=== PATIENT | female | born 1940 | race Caucasian/White ===

== ENCOUNTER 2017-09-08 05:42 | Day surgery (SDC) | payer MEDICARE, OTHER, SELFPAY ==
[2017-09-08] VITALS (8 sets, daily range): BP systolic 98–130; BP diastolic 60–78; PULSE 73–101; RESP 14–18; TEMP 36.3–36.7; O2SAT 95–100; BMI 25.2
[2017-09-08] MEDS: Cefazolin 2 GM in 0.9% Normal Saline 100 ML IV (07:17)
[2017-09-08] MEDS: Bupivacaine Mpf 0.5% 30 ML VIAL (08:54)
--- NOTE | 2017-09-08 09:02 | PCM.OPRPT ---
Report of Operation Date of Procedure: 09/08/17 Pre-Operative Diagnosis: recurrent left femoral hernia Post-Operative Diagnosis: recurrent left femoral hernia, right femoral and indirect inguinal hernias Surgery/Procedure Performed:: left laparoscopic recurrent femoral hernia repair, right laparoscopic femoral and indirect inguinal hernia repair physical anthropologist: Carlita Goel Type of Anesthesia:: General Anesthesiologist: Chintan Rocha ASA2 Specimen's removed: none Drains: urine 125 Estimated Blood Loss (mL): <25 Fluids Replaced: 1400 Description of Procedure: The patient was brought to the operating suite. Sign in was performed verifying patient, site, procedure, position, and DVT prophylaxis with SCDs. Patient received 2 g Ancef antibiotic prophylaxis. ultrasound was used to evaluate the left inguinal region. This demonstrated and was felt to be a recurrent femoral hernia. Following induction of general anesthetic, a matthews catheter was placed. The patients abdomen was prepped and draped in the usual fashion. Timeout was performed verifying patient, site, position. Local anesthetic was injected below the umbilicus. Incision made and dissection carried down to the umbilical root fascia. 2 stay sutures were placed. Incision made in the fascia, the peritoneum entered under direct visualization. A 10 mm Sabillon trocar was inserted and secured with the stay sutures. Pneumoperitoneum to 15 mmHg was insufflated. Visual inspection revealed the recurrent left femoral hernia with omentum adherent into the hernia. Evaluation of the right inguinal region demonstrated both a femoral hernia and a direct inguinal hernia . 2 5mm ports were placed in the standard position. Right side - The peritoneum was incised and prepared and the dissection was carried out along the space down to the preperitoneal space of the inguinal canal. Dissection was carried down identifying the pubic tubercle, Coopers ligament, the inferior epigastric vessels, and lateral dissection. A femoral and direct defect was noted on the right side with dissection Following this, a Bard 3-D Max mesh was placed in the right inguinal space. This was secured with a pro-tack tacker along Coopers ligament. The mesh was then further secured over the transversus arch using a secure strap absorbable tacker. Following this, the peritoneum was closed with a running 3-0 V lock suture sewn laparoscopically. Left side - The peritoneum was incised and prepared and the dissection was carried out along the space down to the preperitoneal space of the inguinal canal. Dissection was carried down identifying the pubic tubercle, Coopers ligament, the inferior epigastric vessels, and lateral dissection. A femoral defect was noted Following this, a Bard 3-D Max mesh was placed in the left inguinal space. This was secured with a pro-tack tacker along Coopers ligament. The mesh was then further secured over the transversus arch using a secure strap absorbable tacker. Following this, the peritoneum was closed with a running 30V lock suture sewn laparoscopically. 5 ports were removed under direct visualization with no signs of bleeding. Pneumoperitoneum was released. The Sabillon trocar was removed. The umbilical fascial suture was secured area did skin was closed with interrupted 4-0 Monocryl subcuticular sutures. Steri-Strips and bandages were applied. The patient was brought to recovery room in stable condition. Grafts/Implants Used: right [id number] exp 06/12/2022,[id number] exp 03/13/22 - Admit VTE Documentation VTE Present on Admission: No VTE Mechan Device Prophylaxis: SCD's VTE Pharm Prophylaxis ordered?: No
--- NOTE | 2017-09-08 09:05 | OP.PCM_ITS ---
Report of Operation Date of Procedure: 09/08/17 Pre-Operative Diagnosis: recurrent left femoral hernia Post-Operative Diagnosis: recurrent left femoral hernia, right femoral and indirect inguinal hernias Surgery/Procedure Performed:: left laparoscopic recurrent femoral hernia repair , right laparoscopic femoral and indirect inguinal hernia repair dermatology nurse practitioner: Carlita Goel Type of Anesthesia:: General Anesthesiologist: Chintan Rocha ASA2 Specimen's removed: none Drains: urine 125 Estimated Blood Loss (mL): <25 Fluids Replaced: 1400 Description of Procedure: The patient was brought to the operating suite. Sign in was performed verifying patient, site, procedure, position, and DVT prophylaxis with SCDs. Patient received 2 g Ancef antibiotic prophylaxis. ultrasound was used to evaluate the left inguinal region. This demonstrated and was felt to be a recurrent femoral hernia. Following induction of general anesthetic, a matthews catheter was placed. The patient?s abdomen was prepped and draped in the usual fashion. Timeout was performed verifying patient, site, position. Local anesthetic was injected below the umbilicus. Incision made and dissection carried down to the umbilical root fascia. 2 stay sutures were placed. Incision made in the fascia, the peritoneum entered under direct visualization. A 10 mm Sabillon trocar was inserted and secured with the stay sutures. Pneumoperitoneum to 15 mmHg was insufflated. Visual inspection revealed the recurrent left femoral hernia with omentum adherent into the hernia. Evaluation of the right inguinal region demonstrated both a femoral hernia and a direct inguinal hernia . 2 5mm ports were placed in the standard position. Right side - The peritoneum was incised and prepared and the dissection was carried out along the space down to the preperitoneal space of the inguinal canal. Dissection was carried down identifying the pubic tubercle, Cornell?s ligament, the inferior epigastric vessels, and lateral dissection. A femoral and direct defect was noted on the right side with dissection Following this, a Bard 3-D Max mesh was placed in the right inguinal space. This was secured with a pro-tack tacker along Cornell?s ligament. The mesh was then further secured over the transversus arch using a secure strap absorbable tacker. Following this, the peritoneum was closed with a running 3-0 V lock suture sewn laparoscopically. Left side - The peritoneum was incised and prepared and the dissection was carried out along the space down to the preperitoneal space of the inguinal canal. Dissection was carried down identifying the pubic tubercle, Cornell?s ligament, the inferior epigastric vessels, and lateral dissection. A femoral defect was noted Following this, a Bard 3-D Max mesh was placed in the left inguinal space. This was secured with a pro-tack tacker along Cornell?s ligament. The mesh was then further secured over the transversus arch using a secure strap absorbable tacker. Following this, the peritoneum was closed with a running 30V lock suture sewn laparoscopically. 5 ports were removed under direct visualization with no signs of bleeding. Pneumoperitoneum was released. The Sabillon trocar was removed. The umbilical fascial suture was secured area did skin was closed with interrupted 4-0 Monocryl subcuticular sutures. Steri-Strips and bandages were applied. The patient was brought to recovery room in stable condition. Grafts/Implants Used: right [id number] exp 06/12/2022,[id number] exp 03/13/22 - Admit VTE Documentation VTE Present on Admission: No VTE Mechan Device Prophylaxis: SCD's VTE Pharm Prophylaxis ordered?: No
--- NOTE | 2017-09-08 09:10 | PCM.DC.HER ---
Discharge Diet: Light diet - advance as tolerated Discharge Activity: Return to Normal Activity, May Drive - when you are no longer taking narcotic pain medications., May Shower - with the bandage in place 1-2 days after surgery. Lifting Restrictions: 20 pounds for 8 weeks. Additional Activity Instructions:: Climbing stairs is fine, walking is encouraged. Sitting in bed may be uncomfortable. Sitting up using your lateral muscles (sitting up sideways) is usually more comfortable. Do not drive, work heavy equipment of sign legal documents for 24 hours. If your hernia repair was an ingunial repair, you may have scrotal swelling, an ice pack and/or athletic support can provide more comfort. Pain medications may cause nausea, you should typically eat light foods as you take your pain medications. Pain medications may also cause constipation. If you have difficulty with this, discuss with your doctor. Call your doctor if your incision/area has: Continuous Slow Oozing, Sudden Increased Bleeding, Increased Pain/ Swelling, Increased Redness, Foul Smelling Discharge Call your doctor if you observe: Fever of 101 or Higher Suture Line Care: Avoid Pulling/Pushing, Avoid Pinching/Bending Additional Dressing/Incision Instructions:: Leave the operative bandage on for 2-3 days. When you remove the bandage, leave the steri-strips on place until your follow up appointment or they fall off. Allergies/Adverse Reactions: Allergies BAND AIDS Allergy (Uncoded 09/04/17 15:05) Rash TAPE Allergy (Uncoded 09/04/17 15:05) Rash Medications to take at Discharge Alendronate Sodium [Fosamax] 70 mg PO Q7D@0700 05/28/16 Mirabegron [Myrbetriq] 25 mg PO DAILY 05/28/16 Ascorbic Acid [Vitamin C] 500 mg PO DAILY 03/24/17 Calcium Carb/Vitamin D3/Vit K1 [Viactiv Soft Chew] 2 each PO DAILY 03/24/17 Ped Multivit #43/Iron Fumarate [Flintstones Complete Chew Tab] 18 mg PO DAILY 03/24/17 Psyllium [Metamucil] 1 packet PO DAILY PRN 09/04/17 Oxycodone [Oxyir] 5 mg PO Q4H PRN PRN 7 Days #16 tab 09/08/17 The following prescriptions were given: Oxycodone [Oxyir] 5 mg PO Q4H PRN PRN 7 Days #16 tab PRN Reason: Severe Pain (6-03/25) Primary Care Physician: Dominick Flores MD [Primary Care Provider] - Please Follow Up With: Ayaz Duque MD - [phone] When: Plan to have a follow up appointment in 7 days. Call to schedule.
[2017-09-08] MEDS: oxyCODONE 5 MG Tablet PO (10:32)
== END 2017-09-08 12:16 | disposition home or self-care (01) ==
LOC: SDC 05:43 → AC 05:45
PROVIDERS: Family Provider Family Medicine; PCP Family Medicine; Visit Provider Surgery
PROC: (CPT 49650; principal; 2017-09-08 06:55)
DX: K41.91 Unilateral femoral hernia, without obstruction or gangrene, recurrent (principal)
CPT/HCPCS: 49650; J7120; J2405

== ENCOUNTER → 2018-01-22 08:51 | Outpatient (CLI) | payer MEDICARE, OTHER, SELFPAY | PROVIDERS: Family Provider Family Medicine; PCP Family Medicine; Visit Provider Obstetrics & Gynecology | DX: Z12.31 Encounter for screening mammogram for malignant neoplasm of breast (principal) | CPT/HCPCS: 77063; 77067 ==

== ENCOUNTER 2018-10-28 18:13 | Emergency (ER) | payer MEDICARE, OTHER, SELFPAY ==
[2018-10-28 18:14] VITALS: BP 136/68; PULSE 79; RESP 17; TEMP 36.1; O2SAT 98; BMI 26.3
--- NOTE | 2018-10-28 18:16 | RAD_ITS ---
STUDY: X-RAY - RIGHT ANKLE REASON FOR EXAM: Female, 78 years old. Fall TECHNIQUE: 3 view(s) of the ankle. COMPARISON: None. FINDINGS: There is a minimally displaced fracture of the lateral malleolus with overlying soft tissue swelling. The remainder the visualized osseous structures are intact. There are no radiodense foreign bodies. RAD/Ankle min 3 Views IMPRESSION: Minimally displaced fracture of the lateral malleolus with overlying soft tissue swelling. Electronically Signed: Kee Tomas, at 18:40 EDT Tel , Service support ,
--- NOTE | 2018-10-28 20:19 | ED.DCSUM_ITS ---
- ER Visit Summary Date of Service: 10/28/18 Chief Complaint: Ankle pain History of Present Illness: The patient is a 78 F who rolled her right ankle and has pain to the lateral right ankle. Physical Examination: Tender to palpation of the lateral malleolus on the right. Skin intact. Neurovascular intact distally. No other tenderness. Test Results: X-rays show a distal fibula fracture, minimally displaced with soft tissue swelling. Emergency Department Course and Treatment: Patient will be treated with a boot orthosis. She has a walker at home and was advised to use it. Nonweightbearing. Rest, ice, elevate. Compression. Continue her epvt-ckq-lizkoms medications. Follow-up with Dr. Flores. Treatment Plan: As above Disposition: Discharge Impression: 1. Right distal fibula fracture This note was generated with [employer] dictation software. It may contain incorrect words, spelling, and punctuation that were not noted in review of the chart prior to signing ED Disposition - Plan for ED Patient: Referrals: Dominick Flores MD [Primary Care Provider] -
--- NOTE | 2018-10-28 20:19 | ED.DEP ---
ED Disposition - Plan for ED Patient: Instructions: ED Fx Ankle Lateral Malleolus Referrals: Manfred Flores MD [STAFF PHYSICIAN] -
== END 2018-10-28 20:38 | disposition home or self-care (01) ==
PROVIDERS: Emergency Provider Emergency Medicine; Family Provider Family Medicine; PCP Family Medicine
DX: S82.831A Other fracture of upper and lower end of right fibula, initial encounter for closed fracture (principal); X50.1XXA Overexertion from prolonged static or awkward postures, initial encounter; Y93.9 Activity, unspecified; Y92.89 Other specified places as the place of occurrence of the external cause; Y99.9 Unspecified external cause status
CPT/HCPCS: 73610; 99283

== ENCOUNTER → 2019-11-01 08:44 | Outpatient (CLI) | payer MEDICARE, OTHER, SELFPAY ==
--- NOTE | 2019-11-01 08:51 | US_ITS ---
STUDY: THYROID ULTRASOUND REASON FOR EXAM: Female, 79 years old. MULTINODULAR GOITER TECHNIQUE: Ultrasound evaluation of the thyroid was performed with real-time and static chapman-scale imaging. COMPARISON: October 19, 2012 FINDINGS: RIGHT LOBE: The right lobe of the thyroid gland measures 4.5 x 1.6 x 1.3 cm. There is a heterogeneous echotexture. There are 4 nodules. There is a hyperechoic nodule measuring 10 x 8 x 7 mm with intranodular flow in the mid lobe. There is a mixed solid cystic nodule measuring 5 x 6 x 4 mm in the midpole. There is a solid nodule measuring 6 x 5 x 4 mm and a second solid nodule measuring 6 x 4 x 4 mm.. LEFT LOBE: The left lobe of the thyroid gland measures 3.3 x 1.4 x 0.9 cm. There is a heterogeneous echotexture. There is a cystic lesion measuring 3.3 x 0.9 cm and a isoechoic solid nodule measuring 5 x 6.4 mm. There are 2 other nodules measuring 1.3 x 0.8 x 0.8 cm and 0.8 x 0.5 x 0.4 cm ISTHMUS: The isthmus measures 2 mm . The regional lymph nodes are normal. There are more nodules on the current study when compared with previous exam however the largest nodules have not increased in size since prior exam. US/Thyroid IMPRESSION: Findings most consistent with multinodular goiter. There are more nodules on the current exam when compared with previous study however there is no significant increase in size in the dominant nodules.. Thyroid neoplasm not likely but not entirely excluded. Clinical correlation recommended Electronically Signed: Jesse Morales MD at 16:58 EDT , Service support ,
== END ==
PROVIDERS: PCP Family Medicine; Referring Provider Family Medicine; Visit Provider Family Medicine
DX: E04.2 Nontoxic multinodular goiter (principal)
CPT/HCPCS: 76536

== ENCOUNTER → 2019-11-11 13:30 | Outpatient (CLI) | payer MEDICARE, OTHER, SELFPAY ==
--- NOTE | 2019-11-11 | FLU_PTH ---
PATIENT: JOYA KAISER LOC: [facility] U#:[id number] AGE/SX: 84/F ROOM: RE11/11/[address]: Dr. He Romero MD : [id number] BED: DIS: SPEC #: [id number] RECD: 11/11/19 14:51 STATUS: RERE REBridget #: [id number] MANUELA: 11/11/19 00:[address]: He Romero DEPT: CYTOLOGY RECD BY: Jey Santoro ENTERED: 11/12/19 10:51 SP TYPE: Fluid OTHR DR: Dr. Dominick Peralta MD Tissues: A - Thyroid gland, NOS B - Thyroid gland, NOS Procedures: Special Stain Group II Surgery Specimen Level IV Cytospin Fluid HEADER OPERATION: Ultrasound-guided fine needle aspiration right thyroid and cyst aspiration left thyroid PRE-OP DIAGNOSIS: Multinodular goiter TISSUE SUBMITTED: A - Left thyroid fluid nodule for cytology, B - FNA right thyroid nodule slides x12 DIAGNOSIS CYTOLOGY A. Left thyroid nodule fluid for cytology, ultrasound-guided FNA (cytospin and cell block): Consistent with cyst contents. See cytology study and comment. B. Right thyroid nodule, ultrasound-guided FNA (smears): Benign colloid nodule with cystic changes. Adequate for evaluation. See comment. COMMENT A. The specimen is nondiagnostic due to lack of adequate number of follicular cells. Correlation with clinical, radiologic findings and appropriate follow up are necessary. CYTOLOGY STUDY Slides are reviewed. A. The specimen predominantly consists of macrophages. Follicular cells are not identified. CYTOLOGY GROSS A - Received is 1 ml of red cloudy fluid labeled with the patient's name and and designated per the requisition as left thyroid. Submitted for cytology preparation including cell block. B - Received are 12 smears labeled with the patient's name and designated per the requisition as right thyroid. Submitted for staining. / rg 11/12/19 TC:5 CPT: 62863, 80236, 72620
[2019-11-11 12:58] VITALS: BMI 26.3
[2019-11-11 16:55] LABS: Cytology, Body Fluid / CSF SEE PATHOLOGY REPORT
== END ==
PROVIDERS: PCP Family Medicine; Referring Provider Surgery; Visit Provider Surgery
DX: E04.2 Nontoxic multinodular goiter (principal)
CPT/HCPCS: 88108; 88305; 88313

== ENCOUNTER → 2019-11-16 09:31 | Outpatient (CLI) | payer MEDICARE, OTHER, SELFPAY ==
[2019-11-11 12:58] VITALS: BMI 26.3
--- NOTE | 2019-11-16 09:36 | BI_ITS ---
MAMMOGRAPHY - BILATERAL SCREENING REASON FOR EXAM: Female, 79 years old. Routine annual screening examination. PERTINENT HISTORY: Aunt with breast cancer. TECHNIQUE: Digital bilateral breast suad (3D mammographic acquisition) in the CC and MLO projections. 2-D mediolateral oblique (MLO) and craniocaudad (CC) views of both breasts were obtained. CAD: Full Field Digital Mammography with Computer Added Detection was performed. COMPARISON: Comparison is made with prior examination done January 22, 2018 and January 16, 2017. FINDINGS: Breast Composition: The breasts are heterogeneously dense, which may obscure small masses. There are no dominant masses or suspicious calcifications. Stable benign-appearing bilateral axillary lymph nodes. No other significant abnormalities are identified. There has been no significant change since the prior study. BI/SCREEN MAMM (CAD) W/SUAD BILAT IMPRESSION: Stable bilateral screening mammogram. Yearly follow-up mammogram recommended. (A) ASSESSMENT CATEGORY: BIRADS Category 2: Benign. A letter regarding these results will be sent to the patient by the facility within 30 days. Approximately 10% of breast cancers are not detected by mammography. A normal mammogram should not delay biopsy of a clinically suspicious abnormality. [id number] Electronically Signed: Dre Villanueva, at 12:29 EDT , Service support ,
--- NOTE | 2019-11-16 09:39 | BD_ITS ---
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 COMPARISON: Comparison is made with prior examination dated December 15, 2014. FINDINGS: Lumbar Spine (L1-L4): g/cm2 (1.127) / T-score (-0.4) / Z-score (1.4) Findings are suggestive of normal bone density with a low fracture risk. Increased thoracic kyphosis. Right Femur Total: g/cm2 (0.729) / T-score (-2.2) / Z-score (-0.3) Right Femoral Neck: g/cm2 (0.738) / T-score (-2.2) / Z-score (-0.1) The T-Scores on the most recent prior examination were: Lumbar Spine (L1-L4): There has been improvement of bone density since the previous examination. Right Femur Total: which represents an improvement of 3.2%. BD/Dexa Bone Density Study IMPRESSION: The patient is considered osteopenic as outlined below according to World [place] Organization (WHO) criteria with a moderate fracture risk. There has been improvement of bone density since the previous examination. Reference Information: The T-score is the number of standard deviations above or below the standard which is normal for young adults at their peak bone mineral density. The World Health Organization (WHO) interprets the T-scores as follows: Above -1 Normal bone density Between -1 and -2.5 Osteopenia Equal to / or below -2.5 Osteoporosis As a practical clinical guideline, osteopenia may be graded as follows: Mild -1 through -1.5 Moderate -1.6 through -2.0 Severe -2.1 through -2.4 The Z-score is the number of standard deviations above or below age-matched controls. A Z-score of less than -1.5 would be considered abnormal. References: 1. NIH Osteoporosis and Related Bone Diseases http://www.osteo.org 2. International Society for Clinical Densitometry http://www.iscd.org 3. National Osteoporosis Foundation http://www.nof.org Electronically Signed: Dre Villanueva, at 13:01 EDT , Service support ,
== END ==
PROVIDERS: PCP Family Medicine; Referring Provider Family Medicine; Visit Provider Family Medicine
DX: Z12.31 Encounter for screening mammogram for malignant neoplasm of breast (principal); M85.80 Other specified disorders of bone density and structure, unspecified site; M40.294 Other kyphosis, thoracic region; Z78.0 Asymptomatic menopausal state
CPT/HCPCS: 77063; 77067; 77080

== ENCOUNTER → 2020-01-05 16:48 | Outpatient (CLI) | payer MEDICARE, OTHER, SELFPAY ==
[2019-11-11 12:58] VITALS: BMI 26.3
[2020-01-05 17:52] LABS: Absolute Lymphocyte Count 2.32 X10^3/uL (0.83-4.51); Absolute Neutrophil Count 4.4 X10^3/uL (2.0-7.7); Basophil# 0.03 X10^3/uL; Basophil% 0.4 % (0-1); Eosinophil# 0.15 X10^3/uL; Eosinophils% 1.9 % (0-5); Hematocrit 33.6 % (37-47); Lymphocyte # 2.32 X10^3/ul (4.0); Lymphocyte % 29.4 % (19-41); Mean Corp Hgb Conc 32.7 g/dL (32-36); Mean Corpuscular Hgb 32.3 pg (27.0-32.0); Mean Corpuscular Volume 98.5 fL (81-99); Mean Platelet Vol. 11.5 fl (6.2-12.0); Monocyte# 0.99 X10^3/uL; Monocyte% 12.5 % (0-10); NRBC Flagged by Analyzer 0 % (0-5); Neutrophil % 55.7 % (47-70); Platelet Count 198 K/mm3 (150-450); RBC Distribution Width CV 12.2 % (11.6-14.6); RBC Distribution Width SD 44.1 fl (35.1-43.9); Red Blood Count 3.41 M/mm3 (4.2-5.4); White Blood Count 7.9 K/mm3 (4.4-11.0)
[2020-01-05 18:17] LABS: Anion Gap 4 (5-15); BUN 19 mg/dL (7-18); BUN/Creat Ratio 20.8 RATIO (10-20); Calcium,Total 8.4 mg/dL (8.5-10.1); Chloride 104 mmol/L (98-107); Creatinine, Serum 0.91 mg/dL (0.55-1.02); EST Glomerular Filtration Rate 63 mL/min (>60); Est Glom Filt Rate - Afr Amer 76 mL/min (>60); Glucose 90 mg/dL (74-106); Potassium 3.8 mmol/L (3.5-5.1); Sodium Level 137 mmol/L (136-145)
== END ==
PROVIDERS: PCP Family Medicine; Referring Provider Family Medicine; Visit Provider Family Medicine
DX: Z01.818 Encounter for other preprocedural examination (principal)
CPT/HCPCS: 36415; 80048; 85025

== ENCOUNTER → 2020-01-14 08:29 | Outpatient (CLI) | payer MEDICARE, OTHER, SELFPAY ==
[2019-11-11 12:58] VITALS: BMI 26.3
[2020-01-14 10:14] LABS: Vitamin B12 403 pg/mL (211-911)
[2020-01-14 10:56] LABS: Ferritin 74 ng/mL (8-252); Iron 91 ug/dL (50-170); Iron Binding Capacity,Total 260 ug/dL (250-450)
== END ==
PROVIDERS: PCP Family Medicine; Referring Provider Family Medicine; Visit Provider Family Medicine
DX: D64.9 Anemia, unspecified (principal)
CPT/HCPCS: 36415; 82607; 82728; 82746; 83540; 83550

== ENCOUNTER 2020-08-14 08:00 | Outpatient (RCR) | payer MEDICARE, OTHER, SELFPAY ==
[2019-11-11 12:58] VITALS: BMI 26.3
== END 2020-08-14 23:59 ==
LOC: IMMUN 08:00
PROVIDERS: PCP Family Medicine; Visit Provider Family Medicine
DX: Z23 Encounter for immunization (principal)
CPT/HCPCS: 0011A; 0012A

== ENCOUNTER → 2021-02-02 08:16 | Outpatient (CLI) | payer MEDICARE, OTHER, SELFPAY ==
[2021-02-02 10:01] LABS: Absolute Lymphocyte Count 1.94 X10^3/uL (0.83-4.51); Absolute Neutrophil Count 3.6 X10^3/uL (2.0-7.7); Basophil# 0.04 X10^3/uL; Basophil% 0.6 % (0-1); Eosinophil# 0.16 X10^3/uL; Eosinophils% 2.5 % (0-5); Hematocrit 35.6 % (37-47); Hemoglobin 11.8 g/dL (12.0-15.0); Lymphocyte # 1.94 X10^3/ul (0.83-4.51); Lymphocyte % 29.9 % (19-41); Mean Corp Hgb Conc 33.1 g/dL (32-36); Mean Corpuscular Hgb 31.7 pg (27.0-32.0); Mean Corpuscular Volume 95.7 fL (81-99); Mean Platelet Vol. 12.2 fl (6.2-12.0); Monocyte# 0.74 X10^3/uL; Monocyte% 11.4 % (0-10); NRBC Flagged by Analyzer 0 % (0-5); Neutrophil # 3.59 X10^3/uL (2.7-7.7); Neutrophil % 55.3 % (47-70); Platelet Count 197 K/mm3 (150-450); RBC Distribution Width CV 11.9 % (11.6-14.6); Red Blood Count 3.72 M/mm3 (4.2-5.4); White Blood Count 6.5 K/mm3 (4.4-11.0)
[2021-02-02 10:21] LABS: Vitamin D,25 Hydroxy 47.5 ng/mL
[2021-02-02 10:30] LABS: AST(SGOT) 17 U/L (15-37); Alanine Aminotransfer ALT/SGPT 25 U/L (13-56); Albumin, Serum 3.5 g/dL (3.2-5.0); Alkaline Phosphatase 56 U/L (45-117); Anion Gap 4 (5-15); BUN 18 mg/dL (7-18); BUN/Creat Ratio 23.4 RATIO (10-20); Calcium,Total 8.9 mg/dL (8.5-10.1); Chloride 106 mmol/L (98-107); Creatinine, Serum 0.77 mg/dL (0.55-1.02); EST Glomerular Filtration Rate 77 mL/min (>60); Est Glom Filt Rate - Afr Amer 93 mL/min (>60); Globulin 3.4 g/dL (2.2-4.2); Glucose 91 mg/dL (74-106); Protein, Total 6.9 g/dL (6.4-8.2); Sodium Level 139 mmol/L (136-145)
== END ==
PROVIDERS: PCP Family Medicine; Visit Provider Family Medicine
DX: M85.80 Other specified disorders of bone density and structure, unspecified site (principal); K21.9 Gastro-esophageal reflux disease without esophagitis
CPT/HCPCS: 36415; 80053; 82306; 85025

== ENCOUNTER → 2021-02-08 09:13 | Outpatient (CLI) | payer MEDICARE, OTHER, SELFPAY ==
[2021-02-08 12:36] LABS: Absolute Lymphocyte Count 1.98 X10^3/uL (0.83-4.51); Absolute Neutrophil Count 3.6 X10^3/uL (2.0-7.7); Basophil# 0.05 X10^3/uL; Basophil% 0.8 % (0-1); Eosinophil# 0.12 X10^3/uL; Eosinophils% 1.8 % (0-5); Hematocrit 34.7 % (37-47); Hemoglobin 11.4 g/dL (12.0-15.0); Lymphocyte # 1.98 X10^3/ul (0.83-4.51); Lymphocyte % 30.5 % (19-41); Mean Corp Hgb Conc 32.9 g/dL (32-36); Mean Corpuscular Hgb 31.6 pg (27.0-32.0); Mean Corpuscular Volume 96.1 fL (81-99); Mean Platelet Vol. 12.1 fl (6.2-12.0); Monocyte# 0.78 X10^3/uL; NRBC Flagged by Analyzer 0 % (0-5); Neutrophil # 3.55 X10^3/uL (2.7-7.7); Neutrophil % 54.6 % (47-70); Platelet Count 208 K/mm3 (150-450); RBC Distribution Width SD 41.9 fl (35.1-43.9); Red Blood Count 3.61 M/mm3 (4.2-5.4); White Blood Count 6.5 K/mm3 (4.4-11.0)
[2021-02-08 12:41] LABS: Vitamin B12 364 pg/mL (211-911)
[2021-02-08 13:32] LABS: Ferritin 81 ng/mL (8-252); Iron 106 ug/dL (50-170); Iron Binding Capacity,Total 264 ug/dL (250-450)
== END ==
PROVIDERS: PCP Family Medicine; Visit Provider Family Medicine
DX: D64.9 Anemia, unspecified (principal)
CPT/HCPCS: 36415; 82607; 82728; 82746; 83540; 83550; 85025

== ENCOUNTER → 2021-02-14 10:21 | Outpatient (CLI) | payer MEDICARE, OTHER, SELFPAY ==
--- NOTE | 2021-02-14 10:27 | US_ITS ---
INDICATION: GOITER EXAMINATION: Ultrasound US Thyroid (eg thyroid, parathyroid, parotid) TECHNIQUE: Lewis scale and color doppler imaging was performed of the thyroid gland. COMPARISON: 11/01/2019. FINDINGS: RIGHT THYROID LOBE: The right lobe of the thyroid gland is unremarkable in size, demonstrates heterogeneous echogenicity and unremarkable vascularity. The right lobe of the thyroid gland measures 4.7 x 1.6 x 1.5 cm. Multiple nodules visualized within the right lobe largest 4; Upper pole complex nodule measuring 0.6 x 0.6 x 0.4 cm and demonstrating demonstrating perinodular vascularity.This nodule demonstrates no significant change in comparison to the prior study where it had measured 0.6 x 0.5 x 0.4 cm cm. Mid pole cystic nodule measuring 0.5 x 0.5 x 0.5 cm. This nodule demonstrates no significant change in comparison to the prior study where it had measured 0.6 x 0.5 x 0.4 cm. Mid to lower pole hyperechoic nodule measuring 1.0 x 0.9 x 0.8 cm and demonstrating perinodular vascularity. This nodule demonstrates no significant change in comparison to the prior study where it had measured 1.0 x 0.8 x 0.7 cm. Lower pole complex nodule measuring 0.6 x 0.5 x 0.4 cm demonstrating demonstrating perinodular vascularity. This nodule demonstrates no significant change in comparison to the prior study where it had measured 0.6 x 0.4 x 0.4 cm. LEFT THYROID LOBE: The left lobe of the thyroid gland is unremarkable in size, demonstrates heterogeneous echogenicity and unremarkable vascularity. The left lobe of the thyroid gland measures 3.7 x 1.8 x 1.0 cm. Multiple nodules visualized within the left lobe largest 2; Midpole (posterolateral) complex nodule measuring 0.8 x 0.5 x 0.3 cm demonstrating perinodular vascularity.This nodule demonstrates slight change in comparison to the prior study where it had measured 0.5 x 0.6 x 0.4 cm. Midpole (anteromedial) complex nodule measuring 0.9 x 0.7 x 0.4 cm demonstrating perinodular vascularity.This nodule demonstrates slight increase in size in comparison to the prior study where it had measured 0.8 x 0.5 x 0.4 cm. ISTHMUS: The isthmus measures 0.2 cm in AP dimensions. No thyroid nodules are present. US/Thyroid IMPRESSION: Right lobe demonstrates 4 nodules that demonstrate no significant change in comparison to the prior study. Left lobe demonstrates that 2 nodules one of which demonstrates slight increase in comparison to the prior study. According to the Society of Radiologists in Ultrasound Consensus Conference Statement, ultrasound-guided FNA (fine needle aspiration) is recommended if: 1) nodule >= 1 cm with microcalcifications; 2) nodule >= 1.5 cm and is almost entirely solid or has coarse calcifications; 3) nodule >= 2.0 cm and is cystic with some solid component; 4) nodule with substantial growth since prior study. Viki MC, Misha CB, Yodit JW, Nelsy ES, Conrad OH, Riky BG, et al. Management of thyroid nodules detected at [place]: Society of Radiologists in Ultrasound consensus conference statement. Radiology 2005;237:794-800 Electronically Signed: Jones Royal MD at 16:52 EDT Tel , Service support ,
== END ==
PROVIDERS: PCP Family Medicine; Referring Provider Family Medicine; Visit Provider Family Medicine
DX: E04.2 Nontoxic multinodular goiter (principal)
CPT/HCPCS: 76536

== ENCOUNTER → 2021-04-18 15:53 | Outpatient (CLI) | payer MEDICARE, OTHER, SELFPAY ==
--- NOTE | 2021-04-18 15:55 | RAD_ITS ---
STUDY: X-RAY - LEFT FOOT CLINICAL: Left heel pain for one week, no specific injury. TECHNIQUE: 3 view(s) of the foot. COMPARISON: None. FINDINGS: Normal talus, calcaneus, and tarsal bones. Normal visualized subtalar, talonavicular, calcaneocuboid, tarsal and tarsometatarsal articulations. Normal metatarsi. Normal metatarsophalangeal joint of the great toe. Normal tibial and fibular sesamoid bones. Normal interphalangeal joint of the great toe. Normal phalanges of the great toe. Normal second through fifth metatarsophalangeal joints. Normal interphalangeal joints and phalanges of the lesser toes. There is mild ossification in the proximal plantar fascia. RAD/Foot min 3 Views IMPRESSION: Mild ossification in the proximal plantar fascia. Otherwise, unremarkable x-ray examination of the left foot. Electronically Signed: Jones Watkins MD at 9:11 EDT Tel , Service support ,
== END ==
PROVIDERS: PCP Family Medicine; Referring Provider Family Medicine; Visit Provider Family Medicine
DX: M79.673 Pain in unspecified foot (principal)
CPT/HCPCS: 73630

== ENCOUNTER → 2021-05-28 12:19 | Outpatient (CLI) | payer MEDICARE, OTHER, SELFPAY ==
--- NOTE | 2021-05-28 12:23 | BI_ITS ---
MAMMOGRAPHY - BILATERAL SCREENING REASON FOR EXAM: Female, 80 years old. Routine annual screening examination. PERTINENT HISTORY: Aunt with breast cancer. TECHNIQUE: Digital bilateral breast suad (3D mammographic acquisition) in the CC and MLO projections. 2-D mediolateral oblique (MLO) and craniocaudad (CC) views of both breasts were obtained. CAD: Full Field Digital Mammography with Computer Added Detection was performed. COMPARISON: Comparison is made with prior study dated 11/16/2019 and 01/22/2018. FINDINGS: Breast Composition: The breasts are heterogeneously dense, which may obscure small masses. There are no dominant masses or suspicious calcifications. Stable small benign appearing bilateral axillary lymph nodes. No other significant abnormalities are identified. There has been no significant change since the prior study. BI/SCRN MAMM (CAD)W/SUAD BILAT IMPRESSION: Stable bilateral screening mammogram. Yearly follow-up mammogram recommended. (A) ASSESSMENT CATEGORY: BIRADS Category 2: Benign. A letter regarding these results will be sent to the patient by the facility within 30 days. Approximately 10% of breast cancers are not detected by mammography. A normal mammogram should not delay biopsy of a clinically suspicious abnormality. [id number] Electronically Signed: Dre Villanueva MD at 13:20 EST , Service support ,
== END ==
PROVIDERS: PCP Family Medicine; Referring Provider Obstetrics & Gynecology; Visit Provider Obstetrics & Gynecology
DX: Z12.31 Encounter for screening mammogram for malignant neoplasm of breast (principal)
CPT/HCPCS: 77063; 77067

== ENCOUNTER → 2022-02-13 | Outpatient (CLI) | payer MEDICARE, OTHER, SELFPAY ==
[2022-02-14 17:20] LABS: Fats, Neutral Normal (.); Fats, Total Normal (.)
== END | disposition home or self-care (01) ==
LOC: LABSPEC 09:23
PROVIDERS: PCP Family Medicine; Visit Provider Family Medicine
DX: R19.7 Diarrhea, unspecified (principal)
CPT/HCPCS: 82705; 83630; 87177; 87209; 87493; 87506

== ENCOUNTER → 2022-05-30 | Outpatient (CLI) | payer MEDICARE, OTHER, SELFPAY ==
--- NOTE | 2022-05-30 07:56 | BI_ITS ---
MAMMOGRAPHY - BILATERAL SCREENING REASON FOR EXAM: Female, 81 years old. Routine annual screening examination. PERTINENT HISTORY: Aunt with breast cancer. TECHNIQUE: Digital bilateral breast suad (3D mammographic acquisition) in the CC and MLO projections. 2-D mediolateral oblique (MLO) and craniocaudad (CC) views of both breasts were obtained. CAD: Full Field Digital Mammography with Computer Added Detection was performed. COMPARISON: Comparison is made with prior study dated 05/28/2021 and 11/16/2019. FINDINGS: Breast Composition: The breasts are heterogeneously dense, which may obscure small masses. There are no dominant masses or suspicious calcifications. Stable small benign-appearing bilateral axillary lymph nodes. No other significant abnormalities are identified. There has been no significant change since the prior study. BI/SCRN MAMM (CAD)W/SUAD BILAT IMPRESSION: Stable bilateral screening mammogram. Yearly follow-up mammogram recommended. (A) ASSESSMENT CATEGORY: BIRADS Category 2: Benign. A letter regarding these results will be sent to the patient by the facility within 30 days. Approximately 10% of breast cancers are not detected by mammography. A normal mammogram should not delay biopsy of a clinically suspicious abnormality. [id number] Electronically Signed: Dre Villanueva MD at 9:12 EST ,
== END | disposition home or self-care (01) ==
LOC: OPBI 07:53
PROVIDERS: PCP Family Medicine; Visit Provider Obstetrics & Gynecology
DX: Z12.31 Encounter for screening mammogram for malignant neoplasm of breast (principal); Z80.3 Family history of malignant neoplasm of breast
CPT/HCPCS: 77063; 77067

== ENCOUNTER 2023-01-25 22:06 | Inpatient (IN) | payer MEDICARE, OTHER, SELFPAY ==
[2023-01-25 22:10] VITALS: PULSE 86; RESP 18; O2SAT 97
[2023-01-25 22:40] VITALS: BP 133/51; PULSE 86; RESP 18; TEMP 36.3; O2SAT 97
--- NOTE | 2023-01-25 22:57 | PCM.HP.STD ---
HPI - General General Date of Admission: 01/25/23 Date of Service: 01/27/23 Chief Complaint: Here for rehabilitation. HPI Narrative JOYA KAISER, is a 82 Female who presents with followin01/21/2023 Admit to [facility] ([place], [place]) Visiting grandchildren, ground level fall, left periprosthetic proximal femur fracture. Twisted, fell in kitchen. Immediate pain, weakness left lower extremity. 01/22/2023 Dr. Berman performed ORIF left subtrochanteric proximal femur fracture, complicated due to periprosthetic fracture. Ancef Postop. NWB left lower extremity x 6 weeks, then WBAT. Lovenox for DVT prophylaxis. 01/25/2023 Admit to TCU with debility, here for rehabilitation, strengthening, prior to discharge home with . [facility] Medical History (Updated 01/25/23 @ 23:[address] Adriano Arias MD) Arthritis Constipation History of back problems Multinodular goiter Home Medications mirabegron 25 mg tablet,extended release 24 hr 25 mg PO DAILY Overactive bladder 05/28/16 [History Last Taken 01/25/23] ascorbic acid (vitamin C) 1,000 mg tablet,extended release 500 mg PO DAILY Supplement 03/24/17 [History Last Taken Unknown] calcium 650 mg-vitamin D3 12.5 mcg-vitamin K 40 mcg chewable tablet 2 ea PO DAILY Supplement 03/24/17 [History Last Taken Unknown] psyllium husk (aspartame) 3.4 gram oral powder packet 1 packet PO DAILY PRN Constipation 09/04/17 [History Last Taken Unknown] multivitamin 1 cap PO DAILY Supplement 11/05/19 [History Last Taken Unknown] polyethylene glycol 3350 17 gram/dose oral powder (Miralax) 17 g PO DAILY Constipation 11/05/19 [History Last Taken 01/24/23] bisacodyl 10 mg rectal suppository 10 mg AL DAILY PRN constipation 01/25/23 [History Last Taken Unknown] calcium carb-ergocalciferol (vit D2) 600 mg calcium-200 unit tablet 1 tab PO DAILY Supplement 01/25/23 [History Last Taken 01/25/23] enoxaparin 30 mg/0.3 mL subcutaneous syringe (Lovenox) 30 mg subcut Q12H Anticoagulant 01/25/23 [History Last Taken 01/25/23] hydrocodone-acetaminophen 5-325mg 5mg-325mg 1 tab PO Q4H PRN pain 01/25/23 [History Last Taken Unknown] sennosides 8.6 mg-docusate sodium 50 mg tablet (Senna with Docusate Sodium) 1 tab-cap PO BID Constipation 01/25/23 [History Last Taken 01/25/23] temazepam 15 mg capsule 15 mg PO QHS PRN sleep 01/25/23 [History Last Taken Unknown] tramadol 50 mg tablet 50 mg PO Q4H PRN pain 01/25/23 [History Last Taken Unknown] Allergy/AdvReac Type Severity Reaction Status Date / Time adhesive tape AdvReac Rash Verified 02/05/22 15:22 Family History Father Arthritis Diabetes CVA (cerebral vascular accident) Brother Diabetes Mother Cancer skin cancer Surgical History history anterior and posterior repair history left femoral hernia repair History of bilateral cataract extraction History of hysterectomy History of laparoscopic cholecystectomy History of tonsillectomy and adenoidectomy History of total left hip replacement History of tubal ligation Social History (Updated 01/25/23 @ 23:[address] Adriano Arias MD) household members: spouse Smoking Status: Never smoker alcohol intake: never substance use type: does not use ROS Constitutional Constitutional: Denies chills, fever(s) or weight gain ENT HEENT: Denies headache(s), nasal congestion or nasal discharge Cardiovascular Cardiovascular: Denies chest pain or palpitations Respiratory/Chest Respiratory/Chest: Denies cough, excessive phlegm production or shortness of breath with exertion Gastrointestinal Gastrointestinal: Denies abdominal pain, nausea or vomiting Genitourinary Genitourinary: Denies dysuria Musculoskeletal Musculoskeletal: Denies joint pain or joint swelling Integumentary Integumentary: Denies rash or wounds Neurologic Neurologic: Denies focal weakness, numbness or tingling Psychiatric Psychiatric: Denies anxiety, auditory hallucinations, depression, homicidal ideation or suicidal ideation Physical Exam Const alert General Appearance: cooperative HEENT normocephalic Eyes PERRL and EOMs intact bilaterally Neck supple, no JVD and no carotid bruits Resp normal respiratory effort, normal air movement and clear to auscultation bilaterally Cardio regular rate and regular rhythm GI normal to inspection, nondistended, normoactive bowel sounds, non-tender and non-distended Extremity normal capillary refill General Extremity: edema left lower extremity Skin no rashes or lesions noted General Skin Exam: no breakdown Psych affect normal Appearance: appropriate Results Lab / Micro Data 01/27/23 05:42 01/26/23 06:30 Assessment & Plan Assessment/Plan (1) Debility: (2) Fall: (3) 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: (4) Overactive bladder: (5) Osteoarthritis: (6) Multinodular goiter: PLAN: Plan 82 year old female with below past medical history hospitalized for left periprosthetic hip fracture, underwent ORIF left subtrochanteric proximal femur fracture 01/22/2023, admitted to TCU with debility, here for rehabilitation, strengthening, prior to discharge home with . Debility - PT/OT. Pain - Tylenol 1000mg q8, Tramadol 50mg q6 prn pain (1-5), Oxycodone 5mg q4 prn pain (6-10). Bowel - Miralax 17gm daily, senna/colace 2 tablets bid, Dulcolax 10mg pr daily prn, Magnesium citrate 300ml daily prn. Adult immunization - Administer pneumonia vaccine, covid19 vaccine, flu vaccine as appropriate. DVT prophylaxis - Lovenox 40mg sc daily. Calcium deficiency - Calcium D 1 tablet daily. 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 Overactive bladder - Tolterodine 4mg daily. Left lower extremity swelling - Doppler ultrasound left lower extremity to evaluate for DVT.
[2023-01-25 23:38] VITALS: BMI 26.4
[2023-01-26] MEDS: HYDROcodone Bitartrate/Apap 5/325 Tablet PO ×2 (00:05→05:24)
[2023-01-26] MEDS: Enoxaparin 30 MG/0.3 ML Syringe SC (05:25)
[2023-01-26] MEDS: Polyethylene Glycol 3350 17 GM PACKET PO (05:25)
[2023-01-26] MEDS: Tolterodine Tartrate 4 MG CAP.SA PO (05:26)
[2023-01-26] MEDS: Senna/Docusate Sodium 1 Tablet PO (05:26)
[2023-01-26] MEDS: Bisacodyl 10 MG Suppository RC (06:48)
[2023-01-26 06:56] LABS: Absolute Lymphocyte Count 1.77 X10^3/uL (0.83-4.51); Absolute Neutrophil Count 7.3 X10^3/uL (2.0-7.7); Basophil# 0.04 X10^3/uL; Basophil% 0.4 % (0-1); Eosinophil# 0.14 X10^3/uL; Eosinophils% 1.3 % (0-5); Hematocrit 25.9 % (37-47); Hemoglobin 8.7 g/dL (12.0-15.0); Lymphocyte # 1.77 X10^3/ul (0.83-4.51); Lymphocyte % 16.4 % (19-41); Mean Corp Hgb Conc 33.6 g/dL (32-36); Mean Corpuscular Hgb 32.2 pg (27.0-32.0); Mean Corpuscular Volume 95.9 fL (81-99); Mean Platelet Vol. 10.6 fl (6.2-12.0); NRBC Flagged by Analyzer 0.3 % (0-5); Neutrophil % 67.6 % (47-70); Platelet Count 205 K/mm3 (150-450); RBC Distribution Width CV 14.9 % (11.6-14.6); RBC Distribution Width SD 51.6 fl (35.1-43.9); White Blood Count 10.8 K/mm3 (4.4-11.0)
[2023-01-26 07:23] LABS: Anion Gap 8 (5-15); BUN 14 mg/dL (7-18); BUN/Creat Ratio 23.1 RATIO (10-20); Chloride 106 mmol/L (98-107); Creatinine, Serum 0.61 mg/dL (0.55-1.02); EST Glomerular Filtration Rate 101 mL/min (>60); Est Glom Filt Rate - Afr Amer 122 mL/min (>60); Estimated Creatinine Clearance 37.45 ml/min; Glucose 111 mg/dL (74-106); Potassium 3.7 mmol/L (3.5-5.1); Sodium Level 142 mmol/L (136-145)
--- NOTE | 2023-01-26 07:45 | NURSING ---
Pt reports last BM being 01/21. Pt has a history of chronic constipation. Stool softeners and miralax on AUG. Bowel sounds hypoactive x4, denies discomfort with palpation of abdomen. After having 0600 medications, pt had one episode of clear emesis. PRN dulcolax suppository administered as ordered. Awaiting results.
[2023-01-26] MEDS: Acetaminophen 500 MG Tablet 1000 MG PO ×2 (09:05→21:41)
[2023-01-26] MEDS: Calcium Carb/Vitamin D 1 TABLET Tablet PO (09:05)
[2023-01-26 16:00] VITALS: BP 119/64; PULSE 86; RESP 16; TEMP 36.2; O2SAT 98
[2023-01-26] MEDS: Senna/Docusate Sodium 1 Tablet 2 TABLET PO (18:59)
[2023-01-26] MEDS: Tuberculin,Purif.prot.deriv. 50 TU/ML Vial 0.1 ML ID (19:16)
[2023-01-27 05:49] LABS: Hematocrit 25.7 % (37-47); Hemoglobin 8.3 g/dL (12.0-15.0)
[2023-01-27] MEDS: Acetaminophen 500 MG Tablet 1000 MG PO ×3 (06:54→21:38)
[2023-01-27] MEDS: Senna/Docusate Sodium 1 Tablet 2 TABLET PO ×2 (06:54→17:31)
[2023-01-27] MEDS: Enoxaparin 40 MG/0.4 ML Syringe SC (06:55)
[2023-01-27] MEDS: Tolterodine Tartrate 4 MG CAP.SA PO (06:55)
[2023-01-27] MEDS: Calcium Carb/Vitamin D 1 TABLET Tablet PO (08:15)
--- NOTE | 2023-01-27 10:42 | NS ---
MST score =3 d/t decreased appetite and unknown UBW.
--- NOTE | 2023-01-27 11:10 | NURSING ---
PT POSITIVE FOR DVT IN LT GASTROC. NOTIFIED.
--- NOTE | 2023-01-27 11:14 | NURSING ---
UPDATED PT ON DVT. ASKED PT IF THERE WAS ANYONE SHE WOULD LIKE ME TO CALL,PT STATED KNOW I WILL UPDATE FAMILY.
--- NOTE | 2023-01-27 11:25 | NURSING ---
treatment coordinator Note; Activity Asset: Roscoe Horowitz is independent in her choice of daily activities. At this time she prefers to stay in her room over group. she has stated she welcomes visit with the patient registrar but not the therapy dog and I have place a note at the nurses desk. Her family and friends will bring her anything she may need or want while she has a smartphone and will watch tv and read. Staff will continue to remind her of daily activities and respect her right to say no.
--- NOTE | 2023-01-27 11:42 | NURSING ---
DRESSING CHANGED TO LEFT HIP DUE TO LARGE AMOUNT OF YELLOW/BLOOD DRAINAGE. NO S/S OF INFECTION. PT TOLERATED WELL.
--- NOTE | 2023-01-27 12:09 | NURSING ---
Offered covid booster, education about vaccine provided. Patient refuses at this time.
--- NOTE | 2023-01-27 12:22 | NURSING ---
Dr beasley updated on doppler results + DVT LT gastroc, new order for xareltoshi lovenox. pt updated.
[2023-01-27 14:42] VITALS: BP 115/48; PULSE 93; RESP 14; TEMP 36.8; O2SAT 97
--- NOTE | 2023-01-27 14:47 | PCM.PN.DRR ---
Documented by User: Madalyn Castellanos 01/27/23 14:59 TCU RX Drug Regimen Review Subjective/Objective Subjective/Objective: Subjective: TCU Admission. 82 YOF presented to outside ER with a fall. Hospitalized for left periprosthetic hip fracture, underwent ORIF left subtrochanteric proximal femur fracture 01/22/2023. Admitted to TCU with debility for strengthening and rehabilitation. Objective: Allergies adhesive tape Adverse Reaction (Verified 02/05/22 15:22) Rash AND BANDAIDS Current Medications Generic Name Dose Route Start Last Admin Trade Name Freq PRN Reason Stop Dose Admin Acetaminophen 1,000 mg 01/26/23 08:30 01/27/23 13:46 Acetaminophen 500 Mg Tablet PO 500 mg Q8 YOSI Administration Bisacodyl 10 mg 01/25/23 23:25 01/26/23 06:48 Bisacodyl 10 Mg Suppository RC 10 mg DAILY PRN Administration constipation Calcium/Vitamin D 1 tablet 01/26/23 08:00 01/27/23 08:15 Calcium Carb/Vitamin D 1 Tablet Tablet PO 1 tablet 0800 YOSI Administration Magnesium Citrate 300 ml 01/26/23 08:19 Magnesium Citrate 300 Ml PO DAILY PRN Constipation Oxycodone HCl 5 mg 01/26/23 08:19 Oxycodone 5 Mg Tablet PO Q4H PRN PRN Pain Score 6-10 Polyethylene Glycol 17 gm 01/26/23 06:00 01/27/23 06:55 Polyethylene Glycol 3350 17 Gm Packet PO Not Given DAILY [facility] Rivaroxaban 15 mg 01/27/23 17:00 Rivaroxaban 15 Mg Tablet PO 02/17/23 17:01 BIDCM [facility] Rivaroxaban 20 mg 02/18/23 17:00 Rivaroxaban 20 Mg Tablet PO 05/19/23 17:01 DINNER [facility] Senna/Docusate Sodium 2 tablet 01/26/23 18:00 01/27/23 06:54 Senna/Docusate Sodium 1 Tablet PO 2 tablet BID [facility] Administration Temazepam 15 mg 01/25/23 23:25 Temazepam 15 Mg Capsule PO QHS PRN PRN sleep Tolterodine Tartrate 4 mg 01/26/23 06:00 01/27/23 06:55 Tolterodine Tartrate 4 Mg Cap.Sa PO 4 mg DAILY [facility] Administration Tramadol HCl 50 mg 01/26/23 08:20 Tramadol 50 Mg Tablet PO Q6H PRN PRN Pain Score 1-5 Tuberculin PPD 0.1 ml 02/02/23 10:00 Tuberculin,Purif.Prot.Deriv. 50 Tu/Ml Vial ID 02/02/23 10:01 X1 ONE Problem List (Updated 01/25/23 @ 23:[address] Adriano Arias MD) Multinodular goiter (Acute) Osteoarthritis (Acute) Overactive bladder (Acute) 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 (Acute) Fall (Acute) Debility (Acute) Vital Signs Temp Pulse Resp BP Pulse Ox O2 Del Method 98.3 F 93 14 115/48 L 97 Room Air 01/27/23 14:42 01/27/23 14:42 01/27/23 14:42 01/27/23 14:42 01/27/23 14:42 01/27/23 14:42 Oxygen Delivery Method Room Air Weight: 71.894 kg Body Mass Index (BMI) 26.4 Sodium 142 mmol/L (136-145) 01/26/23 06:30 Potassium 3.7 mmol/L (3.5-5.1) 01/26/23 06:30 Chloride 106 mmol/L (98-107) 01/26/23 06:30 Carbon Dioxide 28.0 mmol/L (21.0-32.0) 01/26/23 06:30 Anion Gap 8 (5-15) 01/26/23 06:30 BUN 14 mg/dL (7-18) 01/26/23 06:30 Creatinine 0.61 mg/dL (0.55-1.02) 01/26/23 06:30 Est GFR (MDRD) Af Amer 122 mL/min (>60) 01/26/23 06:30 Est GFR (MDRD) Non-Af 101 mL/min (>60) 01/26/23 06:30 BUN/Creatinine Ratio 23.1 RATIO (10-20) H 01/26/23 06:30 Glucose 111 mg/dL (74-106) H 01/26/23 06:30 Assessment/Plan: 1. Pain: acetaminophen 1,000 mg PO Q8, tramadol 50 mg PO Q6H PRN pain (1-5) and oxycodone 5 mg PO Q4H PRN pain (6-10). The resident has not had any PRN usage of tramadol or oxycodone. Continue to monitor for s/s of pain and PRN usage. 2. Bowel: Miralax 17 gm PO daily, senna/docusate 2 tablets PO BID, bisacodyl suppository 10 mg rectally daily PRN constipation and magnesium citrate 300 mL PO daily PRN for no BM in 3 or more days. The resident used a PRN bisacodyl suppository on 01/26 and has had no prn usage of magnesium citrate; she has had 3 BMs so far today, 01/27. Please continue to monitor for s/s of constipation and for PRN usage of bisacodyl and magnesium citrate.? 3. DVT: rivaroxaban 15mg PO BIDCM thru 02/17/23 then 20mg PO DINNER from 02/18/23 - 05/19/23. Please continue to monitor for S/S of bleeding and hemoglobin (last 8.3g/dL). 4. Overactive bladder: tolterodine 4 mg PO daily. Continue to monitor for s/s of dementia, cognitive impairment, and/or delirium (Beer?s Criteria).? 5. Calcium deficiency: calcium 500 mg/Vitamin D 1 tablet PO daily. Continue to monitor serum calcium levels (8 on 01/26) and vitamin D. Please consider ordering a vitamin D level as the last level was from 01/2021. Thanks. Assessment/Plan for indications treated with psychotropic medications: 1. Insomnia: temazepam 15 mg PO QHS PRN for insomnia. Please see physician note regarding GDR. The resident has not had any PRN usage of this medication. Monitor for risk of falls and MANAGER BEAUTY impairment (Beer?s Criteria), PRN usage and insomnia. Medical chart and medication regimen reviewed. The following medication irregularities or issues were identified: 1. Calcium/vitamin D. Please consider ordering a vitamin D level as the last level was from 01/2021. Thanks. The recommended calcium intake for adults aged > 70 years is 1,200 mg (given in two divided doses). The patient is currently only on 500 mg of calcium daily, and her last serum calcium level was 8 on 01/26.?Please consider increasing to BID to increase the amount of calcium (as long as vitamin D level is not high.) Date Date of Note:: 01/27/23 Documented by User: Dr. Adriano Arias MD 01/27/23 17:18 TCU RX Drug Regimen Review Provider Comments Provider responsibility Provider Comments to Recommendations by Pharmacy: Agree
--- NOTE | 2023-01-27 15:33 | CHAPLAIN ---
Type of Pastoral Visit _x__ Initial Visit ___ Follow-up Visit ___ On-call Visit ___ General Patient Visit ___ Spiritual Assessment ___ Family Conference ___ Bereavement ___ Rapid Response ___ Code Blue ___ Other (describe below) Pastoral Care Referral From _x__ Patient ___ Family ___ Nurse ___ Physician ___ Hvac Design Mechanical Engineer ___ Manager Of Recruiting ___ Other (describe below) Sacrament/Intervention _x__ Active listening ___ Anointing ___ Mandaeism ___ Bereavement ___ Communion _x__ Delicia exploration ___ _x__ Life review _x__ Prayer ___ Reconciliation ___ Sacrament of Sick _x__ Supportive presence ___ Wedding ___ Other (describe below) Pastoral Comments 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
[2023-01-27] MEDS: Rivaroxaban 15 MG Tablet PO (17:28)
[2023-01-27 23:00] VITALS: BMI 25.8
[2023-01-28 05:48] LABS: Hematocrit 26.8 % (37-47); Hemoglobin 8.6 g/dL (12.0-15.0)
[2023-01-28] MEDS: Senna/Docusate Sodium 1 Tablet 2 TABLET PO ×2 (06:30→18:00)
[2023-01-28] MEDS: Acetaminophen 500 MG Tablet 1000 MG PO ×3 (06:30→22:31)
[2023-01-28] MEDS: Tolterodine Tartrate 4 MG CAP.SA PO (06:30)
[2023-01-28 08:15] LABS: Vitamin D,25 Hydroxy 36.6 ng/mL
[2023-01-28] MEDS: Rivaroxaban 15 MG Tablet PO ×2 (08:35→17:59)
[2023-01-28] MEDS: Calcium Carb/Vitamin D 1 TABLET Tablet PO ×2 (08:35→17:59)
[2023-01-28 09:39] LABS: Vitamin B12 518 pg/mL (211-911)
[2023-01-28 09:41] LABS: Iron 60 ug/dL (50-170)
--- NOTE | 2023-01-28 14:46 | CASEMGMT ---
Social Work SW met with pt and completed initial assessment. SW discussed code status and MOLST with pt and MOLST form placed in physicians folder. Pt wishes for full code with intubation. SW educated pt to Medicare Benefit. Pt was independent with all ADLs and IADLs prior to fall and hospitalization. Pt is hopeful to return to this level of independence at d/c. Pt plans to return home with her spouse to her one story home. SW to follow for d/c planning. CHE Chuodhury
[2023-01-28 14:55] VITALS: BP 119/57; PULSE 90; RESP 15; TEMP 36.3; O2SAT 95
--- NOTE | 2023-01-28 23:01 | NURSING ---
PT C/O DRESSING FALLING OFF, TAPE NOT STICKING TO SKIN. REMOVED MEPILEX FROM DISTAL INCISION ON LT LE & 2 ABDS FROM MEDIAL AND PROXIMAL INCISIONS. REAPPLIED X3 ABD'S TO COVER ALL 3 SITES & USED MEDIPORE TAPE. SMALL AMT OF SEROUS DRNG FROM PROXIMAL INCISION NOTED. CONCETTA INTACT.
[2023-01-29] MEDS: Acetaminophen 500 MG Tablet 1000 MG PO ×3 (05:18→21:09)
[2023-01-29] MEDS: Tolterodine Tartrate 4 MG CAP.SA PO (05:19)
[2023-01-29 05:24] VITALS: BP 119/48; PULSE 86; RESP 16; O2SAT 98
[2023-01-29] MEDS: Calcium Carb/Vitamin D 1 TABLET Tablet PO ×2 (09:06→18:13)
[2023-01-29] MEDS: Rivaroxaban 15 MG Tablet PO ×2 (09:06→18:12)
--- NOTE | 2023-01-29 09:45 | CASEMGMT ---
Social Work Plan of care meeting held with pt, spouse, dgt Jenna and granddgt Jenn present. Therapy reviewed pt's progress with PT and OT. Pt will be NWB to LLE for 6 weeks. SW explained Medicare Benefit and encouraged pt and family to call secondary insurance to assure copay. A family friend will provide a ramp into home. Pt has a standard walker and family aware where they can get wheels and a shower chair. Pt will also need a wheelchair at discharge if pt discharges prior to getting weight bearing status. Pt is progressing with therapy and dc date has not been set at this time. Pt will continue with the care plan at this time. CHE Choudhury
--- NOTE | 2023-01-29 11:01 | NURSING ---
Addendum entered by Hanane Clark 01/29/23 12:07: Call back from Sarah, clinical watershed program manager at [facility]. Per her, they have the referral from the surgeon. Dr. Flores will be the one assigned to follow, he's out of town but will be back Friday to review and officially accept. TCU staff to call back Friday to schedule appointment time. Patient and family updated. Original Note: Spoke with patient and family in room about ortho follow-up. Patient and family report that they prefer [facility], patient has previously been there. Family reports they believe the surgeon from [place] was contacting [facility]. Called and left message with [facility] requesting return call.
[2023-01-29 14:00] VITALS: BP 105/40; PULSE 78; RESP 18; TEMP 36.2; O2SAT 98
[2023-01-29 16:53] VITALS: BP 123/58
[2023-01-29] MEDS: Senna/Docusate Sodium 1 Tablet 2 TABLET PO (18:12)
[2023-01-29 20:00] VITALS: PULSE 89; RESP 16; O2SAT 98
[2023-01-29] MEDS: MELATONIN 10 MG TABLET PO (21:10)
[2023-01-30] MEDS: Acetaminophen 500 MG Tablet 1000 MG PO (05:50)
[2023-01-30] MEDS: Tolterodine Tartrate 4 MG CAP.SA PO (05:50)
[2023-01-30] MEDS: Ascorbic Acid 500 MG Tablet PO (08:44)
[2023-01-30] MEDS: Iron Polysaccharide Complex 150 MG CAPSULE PO (08:44)
[2023-01-30] MEDS: Rivaroxaban 15 MG Tablet PO ×2 (08:45→16:57)
[2023-01-30] MEDS: Calcium Carb/Vitamin D 1 TABLET Tablet PO ×2 (08:45→16:57)
[2023-01-30 13:05] VITALS: PULSE 85; RESP 18; O2SAT 96
--- NOTE | 2023-01-30 15:10 | CHAPLAIN ---
Type of Pastoral Visit ___ Initial Visit _x__ Follow-up Visit ___ On-call Visit ___ General Patient Visit ___ Spiritual Assessment ___ Family Conference ___ Bereavement ___ Rapid Response ___ Code Blue ___ Other (describe below) Pastoral Care Referral From _x__ Patient ___ Family ___ Nurse ___ Physician ___ Universal Banker ___ Application Programmer Analyst ___ Other (describe below) Sacrament/Intervention _x__ Active listening ___ Anointing ___ Religious ___ Bereavement ___ Communion ___ Delicia exploration ___ _x__ Life review _x__ Prayer ___ Reconciliation ___ Sacrament of Sick _x__ Supportive presence ___ Wedding ___ Other (describe below) Pastoral Comments follow up visit as requested by this patient; pt is very talkative about her life, her experience with the hospitalizations, the health of her ; pt welcomes presence and prayers for recovery and support
[2023-01-30 15:35] VITALS: BP 120/47; PULSE 85; RESP 14; TEMP 36.2; O2SAT 99
[2023-01-30] MEDS: Senna/Docusate Sodium 1 Tablet 2 TABLET PO (16:57)
[2023-01-31] MEDS: Acetaminophen 500 MG Tablet 1000 MG PO (06:05)
[2023-01-31] MEDS: Tolterodine Tartrate 4 MG CAP.SA PO (06:06)
--- NOTE | 2023-01-31 08:08 | MDS.RN ---
Pain interview for MDS completed.
[2023-01-31] MEDS: Calcium Carb/Vitamin D 1 TABLET Tablet PO ×2 (08:50→17:50)
[2023-01-31] MEDS: Ascorbic Acid 500 MG Tablet PO (08:50)
[2023-01-31] MEDS: Iron Polysaccharide Complex 150 MG CAPSULE PO (08:50)
[2023-01-31] MEDS: Rivaroxaban 15 MG Tablet PO ×2 (08:50→17:50)
[2023-01-31 15:19] VITALS: BP 118/54; PULSE 82; RESP 16; TEMP 36; O2SAT 96
--- NOTE | 2023-01-31 16:57 | CASEMGMT ---
BIMS () and PHQ9 (12/10) completed on this date for MDS assessment. Pt stating that feelings of depression are related to tramatic health event and need for SNF. SW encouraged verbalization of feelings and provided emotional support. Pt confirms as time is passing and functional ability is improving, mood is improving. CHE Choudhury
[2023-01-31] MEDS: Senna/Docusate Sodium 1 Tablet 2 TABLET PO (17:50)
[2023-01-31 22:30] VITALS: O2SAT 97
[2023-02-01] MEDS: Tolterodine Tartrate 4 MG CAP.SA PO (06:29)
[2023-02-01] MEDS: Acetaminophen 500 MG Tablet 1000 MG PO (06:30)
[2023-02-01] MEDS: Iron Polysaccharide Complex 150 MG CAPSULE PO (09:19)
[2023-02-01] MEDS: Rivaroxaban 15 MG Tablet PO ×2 (09:20→17:48)
[2023-02-01] MEDS: Calcium Carb/Vitamin D 1 TABLET Tablet PO ×2 (09:20→17:49)
[2023-02-01] MEDS: Ascorbic Acid 500 MG Tablet PO (09:20)
[2023-02-01 14:55] VITALS: BP 107/38; PULSE 83; RESP 17; TEMP 35.9; O2SAT 97
[2023-02-01] MEDS: Senna/Docusate Sodium 1 Tablet 2 TABLET PO (17:48)
[2023-02-01] MEDS: MELATONIN 10 MG TABLET PO (22:53)
[2023-02-02] MEDS: Tolterodine Tartrate 4 MG CAP.SA PO (05:14)
[2023-02-02 05:32] LABS: Absolute Lymphocyte Count 2.45 X10^3/uL (0.83-4.51); Absolute Neutrophil Count 6.4 X10^3/uL (2.0-7.7); Basophil# 0.05 X10^3/uL; Basophil% 0.5 % (0-1); Eosinophil# 0.41 X10^3/uL; Eosinophils% 3.9 % (0-5); Hematocrit 27.9 % (37-47); Hemoglobin 8.7 g/dL (12.0-15.0); Lymphocyte # 2.45 X10^3/ul (0.83-4.51); Lymphocyte % 23.5 % (19-41); Mean Corp Hgb Conc 31.2 g/dL (32-36); Mean Corpuscular Hgb 31.5 pg (27.0-32.0); Mean Corpuscular Volume 101.1 fL (81-99); Mean Platelet Vol. 10.7 fl (6.2-12.0); Monocyte# 1.01 X10^3/uL; Monocyte% 9.7 % (0-10); NRBC Flagged by Analyzer 0 % (0-5); Neutrophil # 6.41 X10^3/uL (2.7-7.7); Neutrophil % 61.4 % (47-70); Platelet Count 314 K/mm3 (150-450); RBC Distribution Width CV 15.4 % (11.6-14.6); RBC Distribution Width SD 54.5 fl (35.1-43.9); Red Blood Count 2.76 M/mm3 (4.2-5.4); White Blood Count 10.4 K/mm3 (4.4-11.0)
[2023-02-02 06:04] LABS: Anion Gap 6 (5-15); BUN 19 mg/dL (7-18); BUN/Creat Ratio 23.3 RATIO (10-20); Calcium,Total 8.5 mg/dL (8.5-10.1); Chloride 107 mmol/L (98-107); Creatinine, Serum 0.81 mg/dL (0.55-1.02); EST Glomerular Filtration Rate 72 mL/min (>60); Est Glom Filt Rate - Afr Amer 87 mL/min (>60); Estimated Creatinine Clearance 46.24 ml/min; Glucose 98 mg/dL (74-106); Sodium Level 142 mmol/L (136-145)
[2023-02-02] MEDS: Calcium Carb/Vitamin D 1 TABLET Tablet PO ×2 (08:42→17:44)
[2023-02-02] MEDS: Iron Polysaccharide Complex 150 MG CAPSULE PO (08:42)
[2023-02-02] MEDS: Ascorbic Acid 500 MG Tablet PO (08:43)
[2023-02-02] MEDS: Rivaroxaban 15 MG Tablet PO ×2 (08:44→17:44)
[2023-02-02] MEDS: Tuberculin,Purif.prot.deriv. 50 TU/ML Vial 0.1 ML ID (09:59)
[2023-02-02 14:38] VITALS: BP 109/69; PULSE 90; RESP 19; TEMP 36.2; O2SAT 97
[2023-02-02] MEDS: Senna/Docusate Sodium 1 Tablet 2 TABLET PO (17:45)
[2023-02-02] MEDS: Temazepam 15 MG Capsule PO (22:42)
[2023-02-03] MEDS: Acetaminophen 500 MG Tablet 1000 MG PO (06:18)
[2023-02-03] MEDS: Senna/Docusate Sodium 1 Tablet 2 TABLET PO ×2 (06:18→17:12)
[2023-02-03] MEDS: Tolterodine Tartrate 4 MG CAP.SA PO (06:19)
[2023-02-03] MEDS: Calcium Carb/Vitamin D 1 TABLET Tablet PO ×2 (08:21→17:11)
[2023-02-03] MEDS: Rivaroxaban 15 MG Tablet PO ×2 (08:21→17:11)
[2023-02-03] MEDS: Ascorbic Acid 500 MG Tablet PO (08:21)
[2023-02-03] MEDS: Iron Polysaccharide Complex 150 MG CAPSULE PO (08:21)
--- NOTE | 2023-02-03 09:39 | NURSING ---
Labor Standards Director Note; MDS for 02/01/2023 Complete
[2023-02-03 14:05] VITALS: BP 113/60; PULSE 86; RESP 16; TEMP 36.4; O2SAT 99
[2023-02-03] MEDS: Temazepam 15 MG Capsule PO (22:48)
[2023-02-04 06:06] LABS: Hematocrit 28.2 % (37-47)
[2023-02-04] MEDS: Tolterodine Tartrate 4 MG CAP.SA PO (06:42)
[2023-02-04] MEDS: Acetaminophen 500 MG Tablet 1000 MG PO (06:42)
[2023-02-04] MEDS: Iron Polysaccharide Complex 150 MG CAPSULE PO (07:53)
[2023-02-04] MEDS: Calcium Carb/Vitamin D 1 TABLET Tablet PO ×2 (07:53→16:55)
[2023-02-04] MEDS: Ascorbic Acid 500 MG Tablet PO (07:54)
[2023-02-04] MEDS: Rivaroxaban 15 MG Tablet PO ×2 (07:55→16:55)
--- NOTE | 2023-02-04 09:43 | NURSING ---
PT HAS DOCTOR APPOINTMENT ON 02/06/23 WITH AT 1315. PHYSICIANS WILL PLANT PROPAGATOR @12:15.
[2023-02-04 09:46] VITALS: BMI 24.8
[2023-02-04 11:12] VITALS: PULSE 79; RESP 18; O2SAT 97
[2023-02-04 14:41] VITALS: BP 108/68; PULSE 87; RESP 14; TEMP 36.2; O2SAT 97
--- NOTE | 2023-02-04 15:27 | CHAPLAIN ---
Type of Pastoral Visit ___ Initial Visit _x__ Follow-up Visit ___ On-call Visit ___ General Patient Visit ___ Spiritual Assessment ___ Family Conference ___ Bereavement ___ Rapid Response ___ Code Blue ___ Other (describe below) Pastoral Care Referral From ___ Patient _x__ Family ___ Nurse ___ Physician ___ Slubber Runner ___ Tennis Net Maker ___ Other (describe below) Sacrament/Intervention _x__ Active listening ___ Anointing ___ Cheondoism ___ Bereavement ___ Communion ___ Delicia exploration ___ _x__ Life review _x__ Prayer ___ Reconciliation ___ Sacrament of Sick _x__ Supportive presence ___ Wedding ___ Other (describe below) Pastoral Comments
[2023-02-04] MEDS: Senna/Docusate Sodium 1 Tablet 2 TABLET PO (16:54)
[2023-02-04] MEDS: Temazepam 15 MG Capsule PO (22:29)
[2023-02-05] MEDS: Tolterodine Tartrate 4 MG CAP.SA PO (06:25)
[2023-02-05] MEDS: Acetaminophen 500 MG Tablet 1000 MG PO (06:29)
[2023-02-05] MEDS: Iron Polysaccharide Complex 150 MG CAPSULE PO (08:14)
[2023-02-05] MEDS: Calcium Carb/Vitamin D 1 TABLET Tablet PO ×2 (08:14→17:07)
[2023-02-05] MEDS: Ascorbic Acid 500 MG Tablet PO (08:14)
[2023-02-05] MEDS: Rivaroxaban 15 MG Tablet PO ×2 (08:14→17:08)
[2023-02-05 15:31] VITALS: BP 117/44; PULSE 78; RESP 14; TEMP 35.9; O2SAT 98
[2023-02-05] MEDS: Senna/Docusate Sodium 1 Tablet 2 TABLET PO (17:10)
[2023-02-05 21:49] VITALS: O2SAT 96
[2023-02-05] MEDS: MELATONIN 10 MG TABLET PO (22:21)
[2023-02-06] MEDS: Acetaminophen 500 MG Tablet 1000 MG PO (06:43)
[2023-02-06] MEDS: Tolterodine Tartrate 4 MG CAP.SA PO (06:44)
[2023-02-06] MEDS: Iron Polysaccharide Complex 150 MG CAPSULE PO (09:12)
[2023-02-06] MEDS: Rivaroxaban 15 MG Tablet PO ×2 (09:12→17:36)
[2023-02-06] MEDS: Ascorbic Acid 500 MG Tablet PO (09:13)
[2023-02-06] MEDS: Calcium Carb/Vitamin D 1 TABLET Tablet PO ×2 (09:13→17:36)
[2023-02-06 13:29] VITALS: BP 99/49; PULSE 78; RESP 16; TEMP 36.6; O2SAT 99
--- NOTE | 2023-02-06 14:56 | MDS.RN ---
Information for the mds was obtained from review of the clinical record, interview of resident, staff, and direct observation of resident care.
[2023-02-06] MEDS: Senna/Docusate Sodium 1 Tablet 2 TABLET PO (17:35)
--- NOTE | 2023-02-06 19:02 | NURSING ---
pt incision intact, well approximated. courtney removed at surgeons office. incision mervin.
[2023-02-06] MEDS: MELATONIN 10 MG TABLET PO (22:08)
[2023-02-07] MEDS: Tolterodine Tartrate 4 MG CAP.SA PO (06:08)
[2023-02-07] MEDS: Acetaminophen 500 MG Tablet 1000 MG PO (06:08)
[2023-02-07] MEDS: Calcium Carb/Vitamin D 1 TABLET Tablet PO ×2 (09:55→18:41)
[2023-02-07] MEDS: Rivaroxaban 15 MG Tablet PO ×2 (09:55→18:41)
[2023-02-07] MEDS: Ascorbic Acid 500 MG Tablet PO (09:55)
[2023-02-07] MEDS: Iron Polysaccharide Complex 150 MG CAPSULE PO (09:55)
[2023-02-07 16:00] VITALS: BP 97/49; PULSE 72; RESP 14; TEMP 36.1; O2SAT 96
[2023-02-07] MEDS: Senna/Docusate Sodium 1 Tablet 2 TABLET PO (18:40)
[2023-02-07 20:45] VITALS: O2SAT 97
[2023-02-07] MEDS: MELATONIN 10 MG TABLET PO (22:14)
[2023-02-08] MEDS: Tolterodine Tartrate 4 MG CAP.SA PO (05:08)
[2023-02-08] MEDS: Acetaminophen 500 MG Tablet 1000 MG PO ×3 (05:08→22:42)
[2023-02-08] MEDS: Rivaroxaban 15 MG Tablet PO ×2 (08:38→17:05)
[2023-02-08] MEDS: Calcium Carb/Vitamin D 1 TABLET Tablet PO ×2 (08:39→17:05)
[2023-02-08] MEDS: Iron Polysaccharide Complex 150 MG CAPSULE PO (08:39)
[2023-02-08] MEDS: Ascorbic Acid 500 MG Tablet PO (08:39)
--- NOTE | 2023-02-08 11:29 | NURSING ---
Son was given update on patient 0840 this morning when he was at bedside.
[2023-02-08 16:00] VITALS: BP 96/45; PULSE 78; RESP 16; TEMP 36.6; O2SAT 97
[2023-02-08] MEDS: Senna/Docusate Sodium 1 Tablet 2 TABLET PO (17:04)
[2023-02-08 17:46] VITALS: BP 130/68
[2023-02-09] MEDS: Acetaminophen 500 MG Tablet 1000 MG PO (07:00)
[2023-02-09] MEDS: Tolterodine Tartrate 4 MG CAP.SA PO (07:01)
[2023-02-09 08:01] LABS: Absolute Lymphocyte Count 1.76 X10^3/uL (0.83-4.51); Absolute Neutrophil Count 3.4 X10^3/uL (2.0-7.7); Basophil# 0.06 X10^3/uL; Basophil% 0.9 % (0-1); Eosinophil# 0.34 X10^3/uL; Eosinophils% 5.3 % (0-5); Hematocrit 33.5 % (37-47); Hemoglobin 10.7 g/dL (12.0-15.0); Lymphocyte # 1.76 X10^3/ul (0.83-4.51); Lymphocyte % 27.2 % (19-41); Mean Corp Hgb Conc 31.9 g/dL (32-36); Mean Corpuscular Hgb 32.3 pg (27.0-32.0); Mean Corpuscular Volume 101.2 fL (81-99); Mean Platelet Vol. 11.5 fl (6.2-12.0); Monocyte# 0.85 X10^3/uL; Monocyte% 13.1 % (0-10); NRBC Flagged by Analyzer 0 % (0-5); Neutrophil # 3.42 X10^3/uL (2.7-7.7); Neutrophil % 52.9 % (47-70); Platelet Count 382 K/mm3 (150-450); RBC Distribution Width CV 14.8 % (11.6-14.6); RBC Distribution Width SD 54.9 fl (35.1-43.9); Red Blood Count 3.31 M/mm3 (4.2-5.4); White Blood Count 6.5 K/mm3 (4.4-11.0)
[2023-02-09] MEDS: Iron Polysaccharide Complex 150 MG CAPSULE PO (08:11)
[2023-02-09] MEDS: Rivaroxaban 15 MG Tablet PO ×2 (08:12→17:05)
[2023-02-09] MEDS: Ascorbic Acid 500 MG Tablet PO (08:12)
[2023-02-09] MEDS: Calcium Carb/Vitamin D 1 TABLET Tablet PO ×2 (08:12→17:05)
[2023-02-09 08:13] LABS: Anion Gap 6 (5-15); BUN 15 mg/dL (7-18); BUN/Creat Ratio 20.3 RATIO (10-20); Calcium,Total 8.7 mg/dL (8.5-10.1); Chloride 107 mmol/L (98-107); Creatinine, Serum 0.74 mg/dL (0.55-1.02); EST Glomerular Filtration Rate 80 mL/min (>60); Est Glom Filt Rate - Afr Amer 97 mL/min (>60); Estimated Creatinine Clearance 37.45 ml/min; Glucose 94 mg/dL (74-106); Potassium 3.6 mmol/L (3.5-5.1); Sodium Level 140 mmol/L (136-145)
[2023-02-09 16:00] VITALS: BP 110/48; PULSE 81; RESP 16; TEMP 36.2; O2SAT 95
[2023-02-09] MEDS: Senna/Docusate Sodium 1 Tablet 2 TABLET PO (17:04)
[2023-02-09 22:00] VITALS: PULSE 91; RESP 16; O2SAT 99
[2023-02-09] MEDS: MELATONIN 10 MG TABLET PO (22:00)
[2023-02-10] MEDS: Acetaminophen 500 MG Tablet 1000 MG PO (01:44)
--- NOTE | 2023-02-10 04:32 | NURSING ---
Patient requesting xray be ordered for left foot this AM. Patient reports pain to area at arch of left foot, patient denies any trauma to left foot, denies bearing weight to left foot and is observed maintaining NWB status during transfers. No redness, no heat, no drainage, slight non-pitting edema to left foot. Patient states I just want to be sure there is nothing wrong, maybe therapy aggravated it. Written communication left for Dr. Arias regarding patient request. Patient educated on pharmacologic and non-pharmacologic pain relief options. Patient only accepts Tylenol for pain states I don't like to take pills. No distress observed or reported. Call light in reach. A&Ox3
[2023-02-10] MEDS: Tolterodine Tartrate 4 MG CAP.SA PO (06:30)
[2023-02-10] MEDS: Calcium Carb/Vitamin D 1 TABLET Tablet PO ×2 (07:44→17:06)
[2023-02-10] MEDS: Iron Polysaccharide Complex 150 MG CAPSULE PO (07:44)
[2023-02-10] MEDS: Ascorbic Acid 500 MG Tablet PO (07:44)
[2023-02-10] MEDS: Rivaroxaban 15 MG Tablet PO ×2 (07:44→17:06)
[2023-02-10 13:08] VITALS: BP 114/62; PULSE 77; RESP 16; TEMP 36.3; O2SAT 97
--- NOTE | 2023-02-10 14:00 | RAD_ITS ---
INDICATION: Pain EXAMINATION/TECHNIQUE: X-RAY - LEFT XR Foot Min 3 Views 3 VIEWS COMPARISON: 04/18/2021. FINDINGS: SOFT TISSUES: No soft tissue swelling or gas. No radiopaque foreign body. BONES/JOINTS: No acute fracture or subluxation.. Normal alignment. Mild narrowing of the interphalangeal joints second through fifth toes and tarsal metatarsal joints which may indicate osteoarthritis.. No sclerotic or destructive changes observed. Possible mild diffuse osteopenia. RAD/Foot min 3 Views IMPRESSION: Possible mild osteopenia with degenerative disease as described. No acute fracture or subluxation. Electronically Signed: Polina He, at 17:11 EDT ,
[2023-02-10] MEDS: Senna/Docusate Sodium 1 Tablet 2 TABLET PO (22:20)
[2023-02-10] MEDS: MELATONIN 10 MG TABLET PO (22:20)
[2023-02-10 22:26] VITALS: PULSE 84; RESP 16; O2SAT 96
[2023-02-11] MEDS: Acetaminophen 500 MG Tablet 1000 MG PO ×2 (00:55→21:57)
--- NOTE | 2023-02-11 01:55 | NURSING ---
Pt unable to sleep. Reports she is uncomfortable but verbalizes she does not have pain. Concerns are vague. Offered pain medication and pt is agreeable to take Tylenol. Pt is tearful. Emotional support and active listening provided. Will continue to monitor.
[2023-02-11 09:00] VITALS: BMI 24.4
[2023-02-11] MEDS: Calcium Carb/Vitamin D 1 TABLET Tablet PO ×2 (09:24→17:29)
[2023-02-11] MEDS: Iron Polysaccharide Complex 150 MG CAPSULE PO (09:24)
[2023-02-11] MEDS: Rivaroxaban 15 MG Tablet PO ×2 (09:26→17:29)
[2023-02-11] MEDS: Ascorbic Acid 500 MG Tablet PO (09:26)
[2023-02-11] MEDS: Tolterodine Tartrate 4 MG CAP.SA PO (09:27)
--- NOTE | 2023-02-11 15:36 | CHAPLAIN ---
Type of Pastoral Visit ___ Initial Visit _x__ Follow-up Visit ___ On-call Visit ___ General Patient Visit ___ Spiritual Assessment ___ Family Conference ___ Bereavement ___ Rapid Response ___ Code Blue ___ Other (describe below) Pastoral Care Referral From _x__ Patient ___ Family ___ Nurse ___ Physician ___ Payroll Secretary ___ Bookkeeper Receptionist ___ Other (describe below) Sacrament/Intervention _x__ Active listening ___ Anointing ___ Christianity ___ Bereavement ___ Communion ___ Delicia exploration ___ ___ Life review ___ Prayer ___ Reconciliation ___ Sacrament of Sick _x__ Supportive presence ___ Wedding ___ Other (describe below) Pastoral Comments
[2023-02-11 16:00] VITALS: BP 112/60; PULSE 83; RESP 16; TEMP 36.2; O2SAT 96
[2023-02-11] MEDS: MELATONIN 10 MG TABLET PO (21:56)
[2023-02-12] MEDS: traMADol 50 MG Tablet PO (00:04)
[2023-02-12] MEDS: Ascorbic Acid 500 MG Tablet PO (09:22)
[2023-02-12] MEDS: Iron Polysaccharide Complex 150 MG CAPSULE PO (09:22)
[2023-02-12] MEDS: Calcium Carb/Vitamin D 1 TABLET Tablet PO ×2 (09:22→17:14)
[2023-02-12] MEDS: Tolterodine Tartrate 4 MG CAP.SA PO (09:23)
[2023-02-12] MEDS: Rivaroxaban 15 MG Tablet PO ×2 (09:23→17:14)
[2023-02-12] MEDS: Acetaminophen 500 MG Tablet 1000 MG PO ×2 (13:34→21:07)
[2023-02-12 14:08] VITALS: BP 117/60; PULSE 88; RESP 14; TEMP 36.5; O2SAT 97
[2023-02-12] MEDS: MELATONIN 10 MG TABLET PO (22:07)
[2023-02-13] MEDS: traMADol 50 MG Tablet PO (01:04)
[2023-02-13] MEDS: Calcium Carb/Vitamin D 1 TABLET Tablet PO ×2 (07:46→17:27)
[2023-02-13] MEDS: Iron Polysaccharide Complex 150 MG CAPSULE PO (07:46)
[2023-02-13] MEDS: Ascorbic Acid 500 MG Tablet PO (07:47)
[2023-02-13] MEDS: Rivaroxaban 15 MG Tablet PO ×2 (07:47→17:27)
[2023-02-13] MEDS: Tolterodine Tartrate 4 MG CAP.SA PO (07:53)
--- NOTE | 2023-02-13 12:41 | CASEMGMT ---
Addendum entered by Luisa Collins 02/13/23 15:33: Correction: PHQ-9 (09/09) Original Note: Social Work SW spoke with pt about setting DC date. Pt agreeable and open to date. SW offered 02/18. Pt agreeable and can transport. Pt requesting w/c and [facility] PT/OT. SW offered C list with quality and resource data but pt denied and agreeable to [facility]. BIMS () and PHQ-9 (12/10) completed for MDS assessment. Sent referral to [facility] for 18 inch w/c w/elevating leg rests. Phoned referral to [facility] for PT/OT. Since pt had ortho surgery in [place], pt is not established with an ortho in [place]. to follow [facility] orders. Intake left voicemail with [place] [facility] to inquire. Pt can begin with [facility] once Dr signs orders. Plan: DC home with 02/18, [facility] PT/OT, w/c TANA ChairezW
[2023-02-13] MEDS: Acetaminophen 500 MG Tablet 1000 MG PO ×2 (13:10→20:11)
[2023-02-13] MEDS: Pneumococcal Vaccine 20 Valent 0.5 ML Syringe IM (13:13)
--- NOTE | 2023-02-13 13:40 | NURSING ---
PREVNAR 20 GIVEN IN THE RT DELT. PT TOLERATED WELL. WILL CONTINUE TO MONITOR.
[2023-02-13 16:00] VITALS: BP 137/74; PULSE 80; RESP 16; TEMP 36.2; O2SAT 98
--- NOTE | 2023-02-13 19:22 | DS.PCM_ITS ---
Providers Date of Admission: 01/25/23 Primary Care Physician: Dr. 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: Status: Acute Code(s): M97.02XA - 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, initial encounter (4) Overactive bladder: Status: Acute Code(s): N32.81 - Overactive bladder (5) Osteoarthritis: Status: Acute Code(s): M19.90 - Unspecified osteoarthritis, unspecified site (6) Multinodular goiter: Status: Acute Code(s): E04.2 - Nontoxic multinodular goiter Plan 82 year old female with below past medical history hospitalized for left periprosthetic hip fracture, underwent ORIF left subtrochanteric proximal femur fracture 01/22/2023, admitted to TCU with debility, here for rehabilitation, strengthening, prior to discharge home with . * Debility - PT/OT. * Pain - Tylenol 1000mg q8, Tramadol 50mg q6 prn pain (1-5), Oxycodone 5mg q4 prn pain (6-10). * Bowel - Miralax 17gm daily, senna/colace 2 tablets bid, Dulcolax 10mg pr daily prn, Magnesium citrate 300ml daily prn. * Adult immunization - Administer pneumonia vaccine, covid19 vaccine, flu vaccine as appropriate. * DVT prophylaxis - Lovenox 40mg sc daily. * Calcium deficiency - Calcium D 1 tablet daily. * Insomnia - Temazepam 15mg qhs prn, stable chronic halfway use, GDR not recommended. * Overactive bladder - Tolterodine 4mg daily. * Left lower extremity swelling - Doppler ultrasound left lower extremity to evaluate for DVT. Medications at Discharge Home Medications mirabegron 25 mg tablet,extended release 24 hr 25 mg PO DAILY Overactive bladder 05/28/16 calcium carb-ergocalciferol (vit D2) 600 mg calcium-200 unit tablet 1 tab PO DAILY Supplement 01/25/23 temazepam 15 mg capsule 15 mg PO QHS PRN sleep 01/25/23 acetaminophen 500 mg tablet 1,000 mg (2 x 500 mg) PO Q6H PRN PRN Pain Score 1-10 #0 tabs 02/13/23 ascorbic acid (vitamin C) 500 mg tablet 500 mg PO BREAKFAST 30 days #30 tabs 02/13/23 melatonin 10 mg sublingual tablet 10 mg PO QHS 30 days #30 tabs 02/13/23 polysaccharide iron complex 150 mg iron capsule (Ferrex) 150 mg PO DAILYCM 30 days #30 caps 02/13/23 rivaroxaban 20 mg tablet (Xarelto) 20 mg PO DINNER 30 days #30 tabs 02/13/23 tramadol 50 mg tablet 50 mg PO Q6H PRN PRN Pain Score 1-5 7 days #28 tabs 02/13/23 Hospital Course Operations - (See below.) Procedures None Summary of Care Provided Minutes Spent on Discharge: 35 Hospital Course: 82 year old female with below past medical history hospitalized for left periprosthetic hip fracture, underwent ORIF left subtrochanteric proximal femur fracture 01/22/2023, admitted to TCU with debility, here for rehabilitation, strengthening, prior to discharge home with . 01/27/2023 Doppler ultrasound left lower extremity positive DVT, treat with Xarelto thru 04/29/2023. Discharge home with 02/18/2023, [facility] PT/OT, wheelchair. Physical Exam Const alert General Appearance: cooperative HEENT normocephalic Eyes PERRL and EOMs intact bilaterally Neck supple, no JVD and no carotid bruits Resp normal respiratory effort, normal air movement and clear to auscultation bilaterally Cardio regular rate and regular rhythm GI normal to inspection, nondistended, normoactive bowel sounds, non-tender and non-distended Extremity normal capillary refill General Extremity: Negative for edema Skin no rashes or lesions noted General Skin Exam: no breakdown Psych affect normal Appearance: appropriate Weight / BMI Weight Weight: 66.497 kg Body Mass Index (BMI) 24.4 ABG / Lab / Microbiology Data 02/09/23 07:15 02/09/23 07:15 D/C Instructions Discharge Diet: No restrictions Discharge Activity: Return to Normal Activity, May Shower and Use Walker Weight Bearing Status: Weight bearing as tolerated Call your doctor if you observe: Fever of 101 or Higher, Inability to urinate, Inability to have a bowel movement, Shortness of breath, Dizziness, Fainting spells, Swelling in the ankles, Chest pain and Uncontrolled pain Additional Instructions: Discharge home with 02/18/2023, [facility] PT/OT, wheelchair. Please Follow Up With: Manfred Flores MD When: As scheduled. Meaningful Use Info Meaningful Use Diagnoses (Choose all that apply): None applicable Discharge Plan Admission Admit Date/Time: 01/25/23 22:06 Primary Reason for Your Visit: Debility. Attending Provider: Adriano Arias Chi Primary Care Provider: Dominick Peralta Instructions Additional Instructions / Restrictions: Discharge home with 02/18/2023, [facility] PT/OT, wheelchair. Discharge Orders/Prescriptions Prescriptions: New tramadol 50 mg Tablet 50 mg PO Q6H PRN PRN (Reason: Pain Score 1-5) 7 Days Qty: 28 0RF acetaminophen 500 mg Tablet 1,000 mg PO Q6H PRN PRN (Reason: Pain Score 1-10) Qty: 0 0RF ascorbic acid (vitamin C) 500 mg Tablet 500 mg PO BREAKFAST 30 Days Qty: 30 0RF polysaccharide iron complex [Ferrex 150] 150 mg iron Capsule 150 mg PO DAILYCM 30 Days Qty: 30 0RF melatonin 10 mg Tablet, Sublingual 10 mg PO QHS 30 Days Qty: 30 0RF Xarelto 20 mg Tablet 20 mg PO DINNER 30 Days Qty: 30 0RF Continued mirabegron 25 MG tablet extended release 24 hr 25 mg PO DAILY Patient Comments: TAKE 1 TABLET BY MOUTH DAILY calcium carbonate-vitamin D2 600 mg calcium- 200 unit tablet 1 tab PO DAILY temazepam 15 mg capsule 15 mg PO QHS PRN (Reason: sleep) Discontinued polyethylene glycol 3350 [Miralax] 17 gram/dose powder 17 g PO DAILY multivitamin capsule 1 cap PO DAILY Hold Instructions: Order Changed ascorbic acid (vitamin C) 1,000 MG tablet extended release 500 mg PO DAILY Hold Instructions: Order Changed calcium-vitamin D3-vitamin K 1 EACH tablet,chewable 2 ea PO DAILY Hold Instructions: Order Changed psyllium husk (aspartame) 1 PACKET packet 1 packet PO DAILY PRN (Reason: Constipation) Hold Instructions: Order Changed sennosides-docusate sodium [Senna with Docusate Sodium] 8.6-50 mg tablet 1 tab-cap PO BID enoxaparin [Lovenox] 30 mg/0.3 mL syringe 30 mg subcut Q12H Rx Instructions: Stop 11/05/2022 08:59 hydrocodone-acetaminophen 5-325 mg tablet 1 tab PO Q4H PRN (Reason: pain) Rx Instructions: Administer 1 tab for pain 4-6 Administer 2 tabs for pain 7-10 bisacodyl 10 mg suppository 10 mg WA DAILY PRN (Reason: constipation) tramadol 50 mg tablet 50 mg PO Q4H PRN (Reason: pain) Rx Instructions: For pain 1-3 Referrals / Follow Up: Dominick Peralta MD [Primary Care Provider] - (Please schedule appt for 02/18 or 02/19 for [facility] to follow.) Manfred Flores MD [Med Staff - Active Staff] - 03/12/23 2:15 pm Disposition Disposition (needs filled in before D/C Order can be placed): Home Health Service
[2023-02-13 22:00] VITALS: O2SAT 97
[2023-02-13] MEDS: MELATONIN 10 MG TABLET PO (22:05)
[2023-02-13] MEDS: Senna/Docusate Sodium 1 Tablet PO (22:05)
[2023-02-14] MEDS: Acetaminophen 500 MG Tablet 1000 MG PO ×2 (10:26→20:18)
[2023-02-14] MEDS: Calcium Carb/Vitamin D 1 TABLET Tablet PO ×2 (10:30→17:15)
[2023-02-14] MEDS: Rivaroxaban 15 MG Tablet PO ×2 (10:30→17:15)
[2023-02-14] MEDS: Iron Polysaccharide Complex 150 MG CAPSULE PO (10:31)
[2023-02-14] MEDS: Tolterodine Tartrate 4 MG CAP.SA PO (10:31)
[2023-02-14] MEDS: Ascorbic Acid 500 MG Tablet PO (10:31)
--- NOTE | 2023-02-14 14:31 | CASEMGMT ---
Social Work SW met with pt and discussed discharge. Pt confirms plans for dc on 02/18. NOMNC signed. Orders for [place] and supporting documentation [place] [facility] [place] [facility]. Janay confirms she will deliver walker prior to 1000 on 02/18. CHE Choudhury
[2023-02-14 14:50] VITALS: BP 111/61; PULSE 80; RESP 17; TEMP 36.1; O2SAT 95
[2023-02-14 22:00] VITALS: O2SAT 97
[2023-02-14] MEDS: MELATONIN 10 MG TABLET PO (22:29)
[2023-02-14] MEDS: Senna/Docusate Sodium 1 Tablet PO (22:29)
[2023-02-15] MEDS: traMADol 50 MG Tablet PO ×2 (02:03→22:20)
--- NOTE | 2023-02-15 03:43 | NURSING ---
Patient continues to struggle with sleep at times. Has Melatonin 10mg in place as well as prn Restoril. She has not been taking the Restoril. Talked with her about taking Restoril and recommending taking it before midnight. She stated she may take it the next night. Will continue to monitor.
[2023-02-15] MEDS: Iron Polysaccharide Complex 150 MG CAPSULE PO (08:54)
[2023-02-15] MEDS: Rivaroxaban 15 MG Tablet PO ×2 (08:54→18:00)
[2023-02-15] MEDS: Tolterodine Tartrate 4 MG CAP.SA PO (08:55)
[2023-02-15] MEDS: Calcium Carb/Vitamin D 1 TABLET Tablet PO ×2 (08:55→18:00)
[2023-02-15] MEDS: Ascorbic Acid 500 MG Tablet PO (08:55)
[2023-02-15 14:57] VITALS: BP 100/50; PULSE 76; RESP 16; TEMP 36.4; O2SAT 96
[2023-02-15 22:00] VITALS: PULSE 75; RESP 16; O2SAT 98
[2023-02-15] MEDS: Acetaminophen 500 MG Tablet 1000 MG PO (22:20)
[2023-02-15] MEDS: MELATONIN 10 MG TABLET PO (22:22)
[2023-02-15] MEDS: Senna/Docusate Sodium 1 Tablet PO (22:22)
[2023-02-16 06:31] LABS: Absolute Lymphocyte Count 2.26 X10^3/uL (0.83-4.51); Absolute Neutrophil Count 2.5 X10^3/uL (2.0-7.7); Basophil# 0.05 X10^3/uL; Basophil% 0.8 % (0-1); Eosinophil# 0.36 X10^3/uL; Eosinophils% 6.1 % (0-5); Hematocrit 32.2 % (37-47); Hemoglobin 10.3 g/dL (12.0-15.0); Lymphocyte # 2.26 X10^3/ul (0.83-4.51); Lymphocyte % 38.2 % (19-41); Mean Corpuscular Hgb 32.1 pg (27.0-32.0); Mean Corpuscular Volume 100.3 fL (81-99); Monocyte# 0.76 X10^3/uL; Monocyte% 12.8 % (0-10); NRBC Flagged by Analyzer 0 % (0-5); Neutrophil # 2.48 X10^3/uL (2.7-7.7); Neutrophil % 41.9 % (47-70); Platelet Count 256 K/mm3 (150-450); RBC Distribution Width CV 14.3 % (11.6-14.6); RBC Distribution Width SD 52.9 fl (35.1-43.9); Red Blood Count 3.21 M/mm3 (4.2-5.4); White Blood Count 5.9 K/mm3 (4.4-11.0)
[2023-02-16 07:03] LABS: Anion Gap 2 (5-15); BUN 16 mg/dL (7-18); BUN/Creat Ratio 19.7 RATIO (10-20); Calcium,Total 8.7 mg/dL (8.5-10.1); Chloride 107 mmol/L (98-107); Creatinine, Serum 0.81 mg/dL (0.55-1.02); EST Glomerular Filtration Rate 72 mL/min (>60); Est Glom Filt Rate - Afr Amer 87 mL/min (>60); Estimated Creatinine Clearance 46.24 ml/min; Glucose 93 mg/dL (74-106); Potassium 4.3 mmol/L (3.5-5.1); Sodium Level 140 mmol/L (136-145)
[2023-02-16] MEDS: Rivaroxaban 15 MG Tablet PO ×2 (09:56→17:51)
[2023-02-16] MEDS: Ascorbic Acid 500 MG Tablet PO (09:56)
[2023-02-16] MEDS: Calcium Carb/Vitamin D 1 TABLET Tablet PO ×2 (09:57→17:51)
[2023-02-16] MEDS: Tolterodine Tartrate 4 MG CAP.SA PO (09:57)
[2023-02-16] MEDS: Iron Polysaccharide Complex 150 MG CAPSULE PO (09:57)
[2023-02-16 14:35] VITALS: BP 111/64; PULSE 81; RESP 16; TEMP 36.3; O2SAT 98
[2023-02-16] MEDS: Senna/Docusate Sodium 1 Tablet PO (22:53)
[2023-02-16] MEDS: MELATONIN 10 MG TABLET PO (22:53)
[2023-02-16] MEDS: Acetaminophen 500 MG Tablet 1000 MG PO (22:57)
[2023-02-16] MEDS: traMADol 50 MG Tablet PO (22:58)
[2023-02-17] MEDS: Calcium Carb/Vitamin D 1 TABLET Tablet PO ×2 (09:07→17:40)
[2023-02-17] MEDS: Tolterodine Tartrate 4 MG CAP.SA PO (09:07)
[2023-02-17] MEDS: Rivaroxaban 15 MG Tablet PO ×2 (09:07→17:40)
[2023-02-17] MEDS: Iron Polysaccharide Complex 150 MG CAPSULE PO (09:08)
[2023-02-17] MEDS: Ascorbic Acid 500 MG Tablet PO (09:09)
[2023-02-17] MEDS: Senna/Docusate Sodium 1 Tablet PO ×2 (09:18→20:02)
[2023-02-17 16:00] VITALS: BP 104/53; PULSE 77; RESP 14; TEMP 36.4; O2SAT 98
[2023-02-17] MEDS: Magnesium Citrate 300 ML PO (17:39)
[2023-02-17] MEDS: MELATONIN 10 MG TABLET PO (21:59)
[2023-02-18] MEDS: Iron Polysaccharide Complex 150 MG CAPSULE PO (08:18)
[2023-02-18] MEDS: Calcium Carb/Vitamin D 1 TABLET Tablet PO (08:18)
[2023-02-18] MEDS: Tolterodine Tartrate 4 MG CAP.SA PO (08:19)
[2023-02-18] MEDS: Ascorbic Acid 500 MG Tablet PO (08:19)
== END 2023-02-18 11:36 | disposition home health service (06) | DRG 561 ==
PROVIDERS: Admitting Provider Family Medicine Geriatric Medicine; PCP Family Medicine; Referring Provider Family Medicine Geriatric Medicine; Visit Provider Family Medicine Geriatric Medicine
DX: M97.02XD 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, subsequent encounter (principal); E04.2 Nontoxic multinodular goiter; M19.90 Unspecified osteoarthritis, unspecified site; W18.30XD Fall on same level, unspecified, subsequent encounter; E58 Dietary calcium deficiency; N32.81 Overactive bladder; G47.00 Insomnia, unspecified; Z79.899 Other long term (current) drug therapy; Z23 Encounter for immunization
CPT/HCPCS: 36415; 73630; 80048; 82306; 82607; 83540; 85014; 85018; 85025; 90677; 97110; 97112; 97116; 97162; 97166; 97530; 97535; G0009

== ENCOUNTER → 2023-01-27 | Outpatient (CLI) | payer MEDICARE, OTHER, SELFPAY ==
--- NOTE | 2023-01-27 09:59 | VDLE_ITS ---
Reason For Study: LLE Swelling Procedure LEFT This is a venous duplex using B-mode, color GSV is normal. flow and spectral Doppler. CFV is compressible, spontaneous, phasic, Exam performed portable in patient room. competent, and demonstrates normal A preliminary report was called and/or faxed augmentation. to TCU RN. FV is compressible, spontaneous, phasic, competent and demonstrates normal augmentation. POP V is compressible, spontaneous, phasic, competent and demonstrates normal augmentation. T/P Trunk is compressible. PTV is compressible. LT PerV is compressible. Lt GastrocV is dilated and NON COMPRESSIBLE consistent with acute DVT Hypoechoic, non vascular structure noted Lt Pop Fossa measuring 0.58cm x 2.71cm. VL/Venous Duplex US, Unilateral Interpretation Summary Acute deep venous thrombosis left gastrocnemius vein Left popliteal fossa 0.58 by 2.71 cm nonvascular hypoechoic structure consisten t with a Nuñez's cyst. Patent and compressible left great saphenous vein Ordering Physician: Adriano Arias Chi Referring Physician: Dominick Peralta Performed By: Skylar Hall, OLGA, RVT
== END | disposition home or self-care (01) ==
LOC: CVS 09:58
PROVIDERS: PCP Family Medicine; Referring Provider Family Medicine Geriatric Medicine; Visit Provider Family Medicine Geriatric Medicine
DX: R22.42 Localized swelling, mass and lump, left lower limb (principal)
CPT/HCPCS: 93971

== ENCOUNTER → 2023-03-28 | Outpatient (CLI) | payer MEDICARE, OTHER, SELFPAY ==
[2023-03-28 17:28] LABS: Absolute Lymphocyte Count 2.31 X10^3/uL (0.83-4.51); Absolute Neutrophil Count 4.5 X10^3/uL (2.0-7.7); Basophil# 0.06 X10^3/uL; Basophil% 0.8 % (0-1); Eosinophil# 0.17 X10^3/uL; Eosinophils% 2.2 % (0-5); Hematocrit 36.5 % (37-47); Hemoglobin 11.7 g/dL (12.0-15.0); Lymphocyte # 2.31 X10^3/ul (0.83-4.51); Lymphocyte % 29.5 % (19-41); Mean Corp Hgb Conc 32.1 g/dL (32-36); Mean Corpuscular Hgb 31.6 pg (27.0-32.0); Mean Corpuscular Volume 98.6 fL (81-99); Monocyte# 0.77 X10^3/uL; Monocyte% 9.8 % (0-10); NRBC Flagged by Analyzer 0 % (0-5); Neutrophil % 57.6 % (47-70); Platelet Count 254 K/mm3 (150-450); RBC Distribution Width SD 46.9 fl (35.1-43.9); White Blood Count 7.8 K/mm3 (4.4-11.0)
[2023-03-28 18:13] LABS: Ferritin 440 ng/mL (8-252); Iron 77 ug/dL (50-170); Iron Binding Capacity,Total 245 ug/dL (250-450)
== END | disposition home or self-care (01) ==
LOC: MFPLAB 16:12
PROVIDERS: PCP Family Medicine; Visit Provider Family Medicine
DX: D50.9 Iron deficiency anemia, unspecified (principal)
CPT/HCPCS: 36415; 82728; 83540; 83550; 85025

== ENCOUNTER → 2023-04-30 | Outpatient (CLI) | payer MEDICARE, OTHER, SELFPAY ==
[2023-04-30 10:17] LABS: Absolute Lymphocyte Count 1.71 X10^3/uL (0.83-4.51); Basophil# 0.03 X10^3/uL; Basophil% 0.4 % (0-1); Eosinophil# 0.12 X10^3/uL; Eosinophils% 1.8 % (0-5); Hematocrit 36.3 % (37-47); Hemoglobin 11.6 g/dL (12.0-15.0); Lymphocyte # 1.71 X10^3/ul (0.83-4.51); Lymphocyte % 25.1 % (19-41); Mean Corpuscular Hgb 31.4 pg (27.0-32.0); Mean Corpuscular Volume 98.1 fL (81-99); Mean Platelet Vol. 11.6 fl (6.2-12.0); Monocyte# 0.89 X10^3/uL; NRBC Flagged by Analyzer 0 % (0-5); Neutrophil # 4.04 X10^3/uL (2.7-7.7); Neutrophil % 59.3 % (47-70); Platelet Count 249 K/mm3 (150-450); RBC Distribution Width CV 12.9 % (11.6-14.6); RBC Distribution Width SD 46.6 fl (35.1-43.9); White Blood Count 6.8 K/mm3 (4.4-11.0)
[2023-04-30 10:52] LABS: Vitamin D,25 Hydroxy 36.3 ng/mL
[2023-04-30 10:55] LABS: ALB/GLOB Ratio 0.9 RATIO (0.9-2.4); AST(SGOT) 17 U/L (15-37); Alanine Aminotransfer ALT/SGPT 21 U/L (13-56); Albumin, Serum 3.3 g/dL (3.2-5.0); Alkaline Phosphatase 73 U/L (45-117); Anion Gap 8 (5-15); BUN 15 mg/dL (7-18); BUN/Creat Ratio 20.4 RATIO (10-20); Calcium,Total 8.9 mg/dL (8.5-10.1); Chloride 101 mmol/L (98-107); Creatinine, Serum 0.74 mg/dL (0.55-1.02); EST Glomerular Filtration Rate 80 mL/min (>60); Est Glom Filt Rate - Afr Amer 97 mL/min (>60); Ferritin 312 ng/mL (8-252); Globulin 3.8 g/dL (2.2-4.2); Glucose 91 mg/dL (74-106); Iron 79 ug/dL (50-170); Iron Binding Capacity,Total 222 ug/dL (250-450); Potassium 3.8 mmol/L (3.5-5.1); Protein, Total 7.1 g/dL (6.4-8.2); Sodium Level 138 mmol/L (136-145); T4 Free Direct 1.12 ng/dL (0.76-1.46); Thyroid Stim Hormone (TSH) 3.17 uIU/mL (0.358-3.74)
== END | disposition home or self-care (01) ==
LOC: MFPLAB 08:40
PROVIDERS: PCP Family Medicine; Visit Provider Family Medicine
DX: M85.80 Other specified disorders of bone density and structure, unspecified site (principal); E04.2 Nontoxic multinodular goiter; D50.9 Iron deficiency anemia, unspecified
CPT/HCPCS: 36415; 80053; 82306; 82728; 83540; 83550; 84439; 84443; 85025

== ENCOUNTER → 2023-05-06 | Outpatient (CLI) | payer MEDICARE, OTHER, SELFPAY ==
--- NOTE | 2023-05-06 12:49 | US_ITS ---
STUDY: THYROID ULTRASOUND REASON FOR EXAM: Female, 82 years old. GOITER TECHNIQUE: Ultrasound evaluation of the thyroid was performed with real-time and static chapman-scale imaging. COMPARISON: Thyroid ultrasound dated February 14, 2021 FINDINGS: RIGHT LOBE: The right lobe of the thyroid gland measures 4.4 x 1.7 x 1.4 cm, previously measured 4.71 x 1.51 x 1.62 cm. There is a heterogeneous echotexture. Redemonstration of heterogeneity and multinodular area of the gland which is compatible with multinodular goiter. The largest nodule measures 1.5 cm in the inferior pole. There is also hypervascularity within the thyroid parenchyma. LEFT LOBE: The left lobe of the thyroid gland measures 3.4 x 1.5 x 1.0 cm, previously measured 3.67 x 1.00 x 1.76 cm. There is a heterogeneous echotexture. Redemonstration of diffuse nodularity throughout the left lobe with a dominant nodule in the midpole measuring 1 cm. ISTHMUS: The isthmus measures 1 mm. The regional lymph nodes are normal. US/Thyroid IMPRESSION: 1. Multinodular goiter of the thyroid gland, no significant interval change in overall size of the parenchyma or dominant nodules Electronically Signed: Jakob Becerra MD at 9:14 EST ,
== END | disposition home or self-care (01) ==
PROVIDERS: PCP Family Medicine; Referring Provider Family Medicine; Visit Provider Family Medicine
DX: E04.2 Nontoxic multinodular goiter (principal)
CPT/HCPCS: 76536

== ENCOUNTER → 2023-05-28 | Outpatient (CLI) | payer MEDICARE, OTHER, SELFPAY ==
[2023-05-28 17:38] LABS: Absolute Lymphocyte Count 2.41 X10^3/uL (0.83-4.51); Absolute Neutrophil Count 5.1 X10^3/uL (2.0-7.7); Basophil# 0.04 X10^3/uL; Basophil% 0.5 % (0-1); Eosinophils% 2.3 % (0-5); Hematocrit 33.8 % (37-47); Hemoglobin 10.8 g/dL (12.0-15.0); Lymphocyte # 2.41 X10^3/ul (0.83-4.51); Lymphocyte % 28.2 % (19-41); Mean Corpuscular Hgb 31.8 pg (27.0-32.0); Mean Corpuscular Volume 99.4 fL (81-99); Mean Platelet Vol. 12.4 fl (6.2-12.0); Monocyte# 0.76 X10^3/uL; Monocyte% 8.9 % (0-10); NRBC Flagged by Analyzer 0 % (0-5); Neutrophil # 5.12 X10^3/uL (2.7-7.7); Neutrophil % 59.9 % (47-70); Platelet Count 228 K/mm3 (150-450); RBC Distribution Width CV 13.1 % (11.6-14.6); RBC Distribution Width SD 47.8 fl (35.1-43.9); White Blood Count 8.6 K/mm3 (4.4-11.0)
[2023-05-28 18:01] LABS: ALB/GLOB Ratio 1.1 RATIO (0.9-2.4); AST(SGOT) 16 U/L (15-37); Alanine Aminotransfer ALT/SGPT 22 U/L (13-56); Albumin, Serum 3.5 g/dL (3.2-5.0); Alkaline Phosphatase 67 U/L (45-117); Anion Gap 6 (5-15); BUN 22 mg/dL (7-18); BUN/Creat Ratio 22.5 RATIO (10-20); Calcium,Total 8.3 mg/dL (8.5-10.1); Chloride 106 mmol/L (98-107); Creatinine, Serum 0.98 mg/dL (0.55-1.02); EST Glomerular Filtration Rate 58 mL/min (>60); Est Glom Filt Rate - Afr Amer 70 mL/min (>60); Globulin 3.3 g/dL (2.2-4.2); Glucose 116 mg/dL (74-106); Potassium 3.7 mmol/L (3.5-5.1); Protein, Total 6.8 g/dL (6.4-8.2); Sodium Level 140 mmol/L (136-145)
[2023-05-28 18:06] LABS: Vitamin D,25 Hydroxy 35.2 ng/mL
[2023-05-30 11:35] LABS: Ferritin 257 ng/mL (8-252); Iron 75 ug/dL (50-170); Iron Binding Capacity,Total 227 ug/dL (250-450)
[2023-05-30 11:51] LABS: Hemoglobin A1c 5.6 % (3.8-5.6)
== END | disposition home or self-care (01) ==
LOC: MFPLAB 14:49
PROVIDERS: PCP Family Medicine; Visit Provider Family Medicine
DX: D64.9 Anemia, unspecified (principal); R73.09 Other abnormal glucose; M85.80 Other specified disorders of bone density and structure, unspecified site
CPT/HCPCS: 36415; 80053; 82306; 82728; 83036; 83540; 83550; 85025

== ENCOUNTER 2023-09-09 08:25 | Outpatient (CLI) | payer MEDICARE, OTHER, SELFPAY ==
--- NOTE | 2023-09-09 08:27 | BD_ITS ---
STUDY: DUAL ENERGY X-RAY ABSORPTIOMETRY / DXA REASON FOR EXAM: Female, 83 years old. 733.90OsteopeniaBONE DENSITY REASON FOR EXAM TECHNIQUE: Bone Mineral Density (BMD) measurements of lumbar spine and right hip were obtained. COMPARISON: Comparison is made with prior study dated November 16, 2019. FINDINGS: Lumbar Spine (L1-L4): g/cm2 (0.877) / T-score (-1.6) / Z-score (1.2) Findings are suggestive of osteopenia with a moderate fracture risk. Right Femur Total: g/cm2 (0.691) / T-score (-2.1) / Z-score (0.2) Right Femoral Neck: g/cm2 (0.592) / T-score (-2.3) / Z-score (0.1) The T-Scores on the most recent prior examination were: Lumbar Spine (L1-L4): There has been improvement of bone density since the previous examination. Right Femur Total: which represents an improvement of 2.9%. BD/Dexa Bone Density Study IMPRESSION: The patient is considered osteopenic as outlined below according to World [employer] Organization (WHO) criteria with a high fracture risk. There has been improvement of bone density since the previous examination. Reference Information: The T-score is the number of standard deviations above or below the standard which is normal for young adults at their peak bone mineral density. The World Health Organization (WHO) interprets the T-scores as follows: Above -1 Normal bone density Between -1 and -2.5 Osteopenia Equal to / or below -2.5 Osteoporosis As a practical clinical guideline, osteopenia may be graded as follows: Mild -1 through -1.5 Moderate -1.6 through -2.0 Severe -2.1 through -2.4 The Z-score is the number of standard deviations above or below age-matched controls. A Z-score of less than -1.5 would be considered abnormal. References: 1. NIH Osteoporosis and Related Bone Diseases www osteo.org 2. International Society for Clinical Densitometry www iscd.org 3. National Osteoporosis Foundation www nof.org Electronically Signed: Dre Villanueva MD at 11:07 EDT ,
== END 2023-09-09 23:59 | disposition home or self-care (01) ==
LOC: OPBD 08:27
PROVIDERS: PCP Family Medicine; Referring Provider Family Medicine; Visit Provider Family Medicine
DX: M85.89 Other specified disorders of bone density and structure, multiple sites (principal)
CPT/HCPCS: 77080

== ENCOUNTER → 2023-09-18 | Outpatient (CLI) | payer MEDICARE, OTHER, SELFPAY ==
[2023-09-18] MEDS: Lidocaine 2% (5ml sdv) 5 ML VIAL.MPF (08:03)
[2023-09-18] MEDS: Lidocaine 1% (5 ml sdv) 5 ML Vial 4 ML OPERA.SITE (08:05)
[2023-09-18] MEDS: Betamethasone/Betamethasone 30 MG/5 ML Vial 12 MG INTRAARTIC (08:05)
--- NOTE | 2023-09-18 09:57 | PCM.OP.PRO ---
Procedure Report Date of Procedure: 09/18/23 Assessment & Plan Assessment/Plan (1) Left shoulder pain: QUALIFIERS: Chronicity: unspecified Qualified Code(s): M25.512 - Pain in left shoulder PLAN: PROCEDURE: Fluoroscopic Guided left shoulder injection ORDERING PROVIDER: Dr. Kee Seay INDICATION: Female, 83 years old. Left shoulder pain. PROVIDER: JOSHUA Alvarez PROCEDURE: CONSENT: The risks, benefits, and alternatives to the procedure were explained to the patient. The specific risks of bleeding, infection, and neurovascular injury were detailed and accepted. Witnessed informed consent was obtained. TECHNIQUE: The left shoulder access site was prepped and draped in sterile fashion. 2% Lidocaine was administered subcutaneously for local anesthesia. A 22-gauge spinal needle was positioned under radiographic fluoroscopic localization. Approximately 2 cc of Isovue 300 instilled for localization purposes. Medication was then injected. MEDICATIONS: 12 mg of betamethasone and 4 ml of 1% lidocaine. The spinal needle was removed, and a dressing was applied. The patient tolerated the procedure well without any immediate complications. IMPRESSION: Successful fluoroscopic guided left shoulder injection. Procedures Radiology Radiology Xray Procedures: Inj Asp major Joint - Hip, Knee
== END | disposition home or self-care (01) ==
LOC: RAD 07:40
PROVIDERS: PCP Family Medicine; Referring Provider Specialist; Visit Provider Specialist
DX: M25.512 Pain in left shoulder (principal); M19.012 Primary osteoarthritis, left shoulder
CPT/HCPCS: 20610; 77002; J0702

== ENCOUNTER → 2023-09-23 | Outpatient (CLI) | payer MEDICARE, OTHER, SELFPAY ==
--- NOTE | 2023-09-23 14:06 | BI_ITS ---
MAMMOGRAPHY - BILATERAL SCREENING REASON FOR EXAM: Female, 83 years old. Routine annual screening examination. PERTINENT HISTORY: Aunt with breast cancer. TECHNIQUE: Digital bilateral breast suad (3D mammographic acquisition) in the CC and MLO projections. 2-D mediolateral oblique (MLO) and craniocaudad (CC) views of both breasts were obtained. CAD: Full Field Digital Mammography with Computer Added Detection was performed. COMPARISON: Comparison is made with prior study dated May 30, 2022 and May 28, 2021. FINDINGS: Breast Composition: The breasts are heterogeneously dense, which may obscure small masses. There are no dominant masses or suspicious calcifications. Stable small benign-appearing bilateral axillary lymph nodes. No other significant abnormalities are identified. There has been no significant change since the prior study. BI/SCRN MAMM (CAD)W/SUAD BILAT IMPRESSION: Stable bilateral screening mammogram. Yearly follow-up mammogram recommended. (A) ASSESSMENT CATEGORY: BIRADS Category 2: Benign. A letter regarding these results will be sent to the patient by the facility within 30 days. Approximately 10% of breast cancers are not detected by mammography. A normal mammogram should not delay biopsy of a clinically suspicious abnormality. [id number] Electronically Signed: Dre Villanueva MD at 15:31 EDT ,
== END | disposition home or self-care (01) ==
LOC: OPBI 14:04
PROVIDERS: PCP Family Medicine; Referring Provider Obstetrics & Gynecology; Visit Provider Obstetrics & Gynecology
DX: Z12.31 Encounter for screening mammogram for malignant neoplasm of breast (principal); Z80.3 Family history of malignant neoplasm of breast
CPT/HCPCS: 77063; 77067

== ENCOUNTER → 2024-06-02 | Outpatient (CLI) | payer MEDICARE, OTHER, SELFPAY ==
[2024-06-02 15:40] LABS: Absolute Lymphocyte Count 2.27 X10^3/uL (0.83-4.51); Absolute Neutrophil Count 3.8 X10^3/uL (2.0-7.7); Basophil# 0.04 X10^3/uL; Basophil% 0.6 % (0-1); Eosinophil# 0.13 X10^3/uL; Eosinophils% 1.8 % (0-5); Hematocrit 34.8 % (37-47); Hemoglobin 11.5 g/dL (12.0-15.0); Lymphocyte # 2.27 X10^3/ul (0.83-4.51); Lymphocyte % 32.2 % (19-41); Mean Corpuscular Hgb 32.2 pg (27.0-32.0); Mean Corpuscular Volume 97.5 fL (81-99); Monocyte# 0.82 X10^3/uL; Monocyte% 11.6 % (0-10); NRBC Flagged by Analyzer 0 % (0-5); Neutrophil # 3.78 X10^3/uL (2.7-7.7); Neutrophil % 53.7 % (47-70); Platelet Count 227 K/mm3 (150-450); RBC Distribution Width CV 12.6 % (11.6-14.6); RBC Distribution Width SD 45.3 fl (35.1-43.9); Red Blood Count 3.57 M/mm3 (4.2-5.4); White Blood Count 7.1 K/mm3 (4.4-11.0)
[2024-06-02 16:08] LABS: ALB/GLOB Ratio 1.1 RATIO (0.9-2.4); AST(SGOT) 18 U/L (15-37); Alanine Aminotransfer ALT/SGPT 24 U/L (13-56); Albumin, Serum 3.6 g/dL (3.2-5.0); Alkaline Phosphatase 73 U/L (45-117); Anion Gap 4 (5-15); BUN 20 mg/dL (7-18); BUN/Creat Ratio 26.2 RATIO (10-20); Calcium,Total 9.2 mg/dL (8.5-10.1); Chloride 106 mmol/L (98-107); Creatinine, Serum 0.76 mg/dL (0.55-1.02); EST Glomerular Filtration Rate 77 mL/min (>60); Est Glom Filt Rate - Afr Amer 93 mL/min (>60); Globulin 3.4 g/dL (2.2-4.2); Glucose 90 mg/dL (74-106); Potassium 4.2 mmol/L (3.5-5.1); Sodium Level 138 mmol/L (136-145)
[2024-06-03 07:49] LABS: Vitamin B12 314 pg/mL (211-911); Vitamin D,25 Hydroxy 27.6 ng/mL
== END | disposition home or self-care (01) ==
PROVIDERS: PCP Family Medicine
DX: Z00.00 Encounter for general adult medical examination without abnormal findings (principal); M85.80 Other specified disorders of bone density and structure, unspecified site
CPT/HCPCS: 36415; 80053; 82306; 82607; 85025

== ENCOUNTER → 2025-04-13 | Outpatient (CLI) | payer MEDICARE, OTHER, SELFPAY ==
--- OUTSIDE RECORDS SUMMARY | 2025-04-13 10:34 | XMS RPT_ITS | CCD ---
Author Organization [facility] Care Team Providers Care Clothes Designer Name Role Phone Dr. Dominick Peralta Primary Care Provider [phone] Dr. Neil Aguilar Attending Provider Dr. Adriano Arias Chi Referring Provider Dr. Dominick Peralta Primary Care Provider [phone] Dr. Dominick Peralta Referring Provider Dr. Gladys Banerjee Attending Provider Dr. Kee Seay Referring Provider Dr. Kee Seay Other Provider LON Patel Attending Provider Dominick Peralta Primary Care Unavailable Aishwarya Valerio NP Attending Unavailable Teodoro UNDERWRITING CONSULTANTAishwarya Referring Unavailable Dominick Peralta Primary Care Unavailable Manfred Flores Attending Unavailable Manfred Flores Referring Unavailable Allergies Allergy Classification Reported Allergen(s) Allergy Type Date of Onset Reaction(s) Facility (3 sources) Adhesive Tape; Translations: [adhesive tape] Propensity to adverse reactions 2 [facility] Repository Medications Current Medications Medication Drug Class(es) Dates Sig (Normalized) Sig (Original) ascorbic acid 500 mg oral tablet (17 sources) Vitamin C Start: 02-13-2023 take 500 mg by mouth at breakfast Ascorbic Acid (Vitamin C) Active 500 MG PO WITH BREAKFAST February 13, 2023 12:00am Start: 03-24-2017 End: 02-13-2023 take 500 mg by mouth once daily Ascorbic Acid (Vitamin C) Discontinued 500 MG PO DAILY March 24, 2017 12:00am February 13, 2023 7:25pm calcium carbonate 1250 mg / cholecalciferol 500 unt / vitamin k1 0.04 mg chewable tablet (2 sources) Vitamin D, Warfarin Reversal Agent, Vitamin K Start: 03-24-2017 Calcium-Vitamin D3-Vitamin K Active 2 EACH PO DAILY March 23, 2017 11:00pm Calcium Carbonate-Vitamin D2 (8 sources) Start: 01-25-2023 take 1 tablet by mouth once daily Calcium Carbonate-Vitamin D2 Active 1 TABLET PO DAILY January 24, 2023 11:00pm Start: 01-25-2023 take 1 tablet by kerry th once daily Calcium Carbonate-Vitamin D2 Active 1 TABLET PO DAILY January 25, 2023 12:00am Lactobacillus Combination No.9 (Adult 50 Plus Probiotic) 4 billion cell capsule (2 sources) Start: 09-16-2023 take 4 capsules by mouth once daily Lactobacillus Combination No.9 (Adult 50 Plus Probiotic) 4 billion cell capsule Active 4000 MMU CELLS PO DAILY September 16, 2023 12:00am administer with a meal 24 hr mirabegron 25 mg extended release oral tablet (12 sources) beta3-Adrenergi c Agonist Start: 05-28-2016 End: 09-16-2023 take 1 tablet by mouth once daily Mirabegron (Myrbetriq) 25 mg tablet extended release 24 hr Active 25 MG PO DAILY September 16, 2023 12:00am polyethylene glycol 3350 71348 mg powder for oral solution (12 sources) Osmotic Laxative Start: 09-16-2023 Polyethylene Glycol 3350 (Miralax) 17 gram/dose powder Active 4 GM PO DAILY September 16, 2023 12:00am Start: 11-05-2019 End: 02-13-2023 Polyethylene Glycol 3350 (Mi ralax) 17 gram/dose powder Discontinued 17 GM PO DAILY November 05, 2019 12:00am February 13, 2023 7:26pm Vit C-Zinc Citrate-Elderberr y (Elderberry Immune Health) 45-3.75-50 mg tablet,chewable (2 sources) Start: 09-16-2023 Vit C-Zinc Cit rate-Elderberry (Elderberry Immune Health) 45-3.75-50 mg tablet,chewable Active TABLET PO September 16, 2023 12:00am Completed/Discontinued Medications Medication Drug Class(es) Dates Sig (Normalized) Sig (Original) acetaminophen 500 mg oral tablet (7 sources) Start: 02-13-2023 End: 09-16-2023 take 1000 mg by mouth every six hours as needed Acetaminophen Discontinued 1000 MG PO EVERY 6 HOURS NEEDED 0 February 13, 2023 12:00am September 16, 2023 3:17pm acetaminophen 325 mg / HYDROcodone bitartrate 5 mg oral tablet (8 sources) Opioid Agonist Start: 01-25-2023 End: 02-13-2023 Hydrocodone-Acetam inophen Discontinued 1 TABLET PO Q4H January 25, 2023 12:00am February 13, 2023 7:26pm Administer 1 tab for pain 4-6 Administer 2 tabs for pain 7-10 alendronic acid 70 mg oral tablet (10 sources) Bisphosphonate Start: 05-28-2016 End: 11-05-2019 take 70 mg by mouth every week Alendronate Discontinued 70 MG PO Q7D@0700 May 28, 2016 1:00am November 05, 2019 9:34am bisacodyl 10 mg rectal suppository (8 sources) Stimulant Laxative Start: 01-25-2023 End: 02-13-2023 Bisacodyl Discontinued 10 MG RC DAILY January 25, 2023 12:00am February 13, 2023 7:25pm calcium carbonate 1625 mg / cholecalciferol 0.0125 mg / vitamin k 0.04 mg chewable tablet (8 sources) Vitamin D Start: 03-24-2017 End: 02-13-2023 Calcium-Vitamin D3-Vitamin K Discontinued 2 EACH PO DAILY March 24, 2017 12:00am February 13, 2023 7:25pm docusate sodium 50 mg / sennosides, fci 8.6 mg oral tablet (8 sources) Start: 01-25-2023 End: 02-13-2023 take 1 tablet by mouth twice daily Sennosides-Docusat e Sodium (Senna With Docusate Sodium) 8.6-50 mg tablet Discontinued 1 TAB-CAP PO TWICE A DAY January 25, 2023 12:00am February 13, 2023 7:26pm 0.3 ml enoxaparin sodium 100 mg/ml prefilled syringe (8 sources) Low Molecular Weight Heparin Start: 01-25-2023 End: 02-13-2023 Enoxaparin (Lovenox) 30 mg/0.3 mL syringe Discontinued 30 MG SC Q12H January 25, 2023 12:00am February 13, 2023 7:25pm Stop 11/05/2022 08:59 melatonin 10 mg sublingual tablet (7 sources) Start: 02-13-2023 End: 09-16-2023 take 10 mg by mouth at bedtime Melatonin Discontinued 10 MG PO AT BEDTIME February 13, 2023 12:00am September 16, 2023 3:17pm Multivitamin preparation (10 sources) Start: 11-05-2019 End: 02-13-2023 take 1 capsule by mouth once daily multivitamin Discontinued 1 CAP PO DAILY November 04, 2019 11:00pm February 13, 2023 6:25pm Start: 11-05-2019 End: 02-13-2023 take 1 capsule by mouth once daily multivitamin Discontinued 1 CAP PO DAILY November 05, 2019 12:00am February 13, 2023 7:25pm Start: 11-05-2019 take 1 capsule by mo uth once daily multivitamin Active 1 CAP PO DAILY November 04, 2019 11:00pm Start: 11-05-2019 take 1 capsule by mo uth once daily multivitamin Active 1 CAP PO DAILY November 05, 2019 12:00am Pedi Multivit 43-Iron Fumara te (10 sources) Start: 03-24-2017 End: 11-05-2019 Pedi Multivit 43-Iron Fumara te Discontinued 18 MG PO DAILY March 23, 2017 11:00pm November 05, 2019 8:36am Start: 03-24-2017 End: 11-05-2019 Pedi Multivit 43-Iron Fumara te Discontinued 18 MG PO DAILY March 24, 2017 12:00am November 05, 2019 9:36am polysaccharide iron complex 150 mg oral capsule (7 sources) Start: 02-13-2023 End: 09-16-2023 Polysaccharide Iron Complex (Ferrex 150) 150 mg iron Capsule Discontinued 150 MG PO DAILY WITH MEALS February 13, 2023 12:00am September 16, 2023 3:17pm psyllium 3400 mg powder for oral suspension (10 sources) Start: 09-04-2017 End: 02-13-2023 Psyllium Husk (Aspartame) Discontinued 1 PACKET PO DAILY September 04, 2017 12:00am February 13, 2023 7:25pm rivaroxaban 20 mg oral tablet (7 sources) Factor Xa Inhibitor Start: 02-13-2023 End: 09-16-2023 take 1 tablet by mouth at dinner Rivaroxaban (Xarelto) 20 mg Tablet Discontinued 20 MG PO WITH DINNER 30 February 13, 2023 12:00am September 16, 2023 3:17pm temazepam 15 mg oral capsule (8 sources) Benzodiazepine Start: 01-25-2023 End: 09-16-2023 take 15 mg by mouth at bedtime Temazepam Discontinued 15 MG PO AT BEDTIME January 25, 2023 12:00am September 16, 2023 3:17pm traMADol hydrochloride 50 mg oral tablet (15 sources) Opioid Agonist Start: 02-13-2023 End: 09-16-2023 take 50 mg by mouth every six hours as needed Tramadol Discontinued 50 MG PO EVERY 6 HOURS NEEDED 28 7 February 13, 2023 12:00am September 16, 2023 3:17pm Start: 01-25-2023 End: 02-13-2023 take 50 mg by mouth every four hours for pain Tramadol Discontinued 50 MG PO Q4H January 25, 2023 12:00am February 13, 2023 7:26pm For pain 1-3 Problems Active Problems Problem Classification Problem Date Documented Da te Episodic/Chronic Complications of surgical procedures or medical care (13 sources) Periprosthetic fracture; Translations: [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, initial encounter] 01-25-2023 Episodic E Codes: Fall (13 sources) Fall; Translations: [Unspecified fall, initial encounter] 01-25-2023 Episodic Malaise and fatigue (13 sources) Asthenia; Translations: [Other malaise] 01-25-2023 Episodic Osteoarthritis (13 sources) Osteoarthritis; Translations: [Unspecified osteoarthritis, unspecified site] 01-25-2023 Chronic Other diseases of bladder and urethra (8 sources) Overactive bladder; Translations: [Overactive bladder] 01-25-2023 Chronic Other diseases of bladder and urethra (5 sources) Overactive bladder; Translations: [Hypertonicity of bladder] 01-25-2023 Chronic Other non-traumatic joint disorders (4 sources) Pain in left shoulder; Translations: [Left shoulder pain] 09-18-2023 Episodic Thyroid disorders (13 sources) Multinodular goiter; Translations: [Nontoxic multinodular goiter] 01-25-2023 Chronic Past or Other Problems Problem Classification Problem Date Documented Da te Episodic/Chronic Unclassified (10 sources) history anterior and posterior repair 01-04-2022 Unclassified (10 sources) history left femoral hernia repair 01-04-2022 Results Test Name Value Interpretation Reference Range Facility Vitamin B12on 06-03-2024 Cobalamin (Vitamin B12) [Mass/Vol] 314 pg/mL Normal 211-911 [facility] Comment on above: Performed By: #### L 503.0105, L500.4050, L100.0100, L506.1000 #### [facility] [address] [place], [address] Vitamin D,25 Hydroxyon 06-03 Vitamin D 25-OH 27.6 ng/mL Normal [facility] Comment on above: Result Comment: Citlaly min D 25(OH) Status Range Deficiency <20 ng/mL (50nmol/L) Insufficiency 20 - 30 ng/mL (50 - 75 nmol/L) Sufficiency 30 - 100 ng/mL (75 - 250 nmol/L) Toxicity >100 ng/mL (>250 nmol/L) Performed By: #### L 503.0105, L500.4050, L100.0100, L506.1000 #### [facility] [address] [place], [address] CBC W/Diff, Automatedon - Absolute Lymph 2.27 X10 3/uL Normal 0.83-4.51 [facility] Comment on above: Performed By: #### L 503.0105, [id number], L100.0100, L506.1000 #### [facility] [address] [place], [address] Absolute Neut 3.8 X10 3/uL Normal 2.0-7.7 [facility] Comment on above: Performed By: #### L 503.0105, [id number], L100.0100, L506.1000 #### [facility] [address] [place], [address] Basophils/100 WBC (Bld) 0.6 % Normal 0-1 [facility] Comment on above: Performed By: #### L 503.0105, [id number], L100.0100, L506.1000 #### [facility] [address] [place], [address] Eosinophils/100 WBC (Bld) 1.8 % Normal 0-5 [facility] Comment on above: Performed By: #### L 503.0105, [id number], L100.0100, L506.1000 #### [facility] [address] [place], [address] Erythrocyte distribution width (RBC) [Ratio] 12.6 % Normal 11.6-14.6 [facility] Comment on above: Performed By: #### L 503.0105, [id number], L100.0100, L506.1000 #### [facility] [address] [place], [address] Hematocrit (Bld) [Volume fraction] 34.8 % Low 37-47 [facility] Comment on above: Performed By: #### L 503.0105, [id number], L100.0100, L506.1000 #### [facility] [address] [place], [address] Hemoglobin (Bld) [Mass/Vol] 11.5 g/dL Low 12.0-15.0 [facility] Comment on above: Performed By: #### L 503.0105, [id number], L100.0100, L506.1000 #### [facility] [address] [place], [address] IG% 0.100 Normal 0.0-0.9 [facility] Comment on above: Result Comment: IG% - Immature Granulocytes (promyelocytes, myelocytes and metamyelocytes) > 1% indicates that a LEFT SHIFT is Present. Performed By: #### L 503.0105, L500.4050, L100.0100, L506.1000 #### [facility] [address] [place], [address] Lymphocytes/100 WBC (Bld) 32.2 % Normal 19-41 [facility] Comment on above: Performed By: #### L 503.0105, [id number], L100.0100, L506.1000 #### [facility] [address] [place], [address] MCH (RBC) [Entitic mass] 32.2 pg High 27.0-32.0 [facility] Comment on above: Performed By: #### L 503.0105, [id number], L100.0100, L506.1000 #### [facility] [address] [place], [address] MCHC (RBC) [Mass/Vol] 33.0 g/dL Normal 32-36 [facility] Comment on above: Performed By: #### L 503.0105, [id number], L100.0100, L506.1000 #### [facility] [address] [place], [address] MCV (RBC) [Entitic vol] 97.5 fL Normal 81-99 [facility] Comment on above: Performed By: #### L 503.0105, [id number], L100.0100, L506.1000 #### [facility] [address] [place], [address] Monocytes/100 WBC (Bld) 11.6 % High 0-10 [facility] Comment on above: Performed By: #### L 503.0105, [id number], L100.0100, L506.1000 #### [facility] [address] [place], [address] Neutrophils/100 WBC (Bld) 53.7 % Normal 47-70 [facility] Comment on above: Performed By: #### L 503.0105, [id number], L100.0100, L506.1000 #### [facility] [address] [place], [address] Nucleated RBC (Bld) [#/Vol] 0 10*3/uL Normal 0-5 [facility] Comment on above: Performed By: #### L 503.0105, [id number], L100.0100, L506.1000 #### [facility] [address] [place], [address] Platelet mean volume (Bld) [Entitic vol] 12.0 fL Normal 6.2-12.0 [facility] Comment on above: Performed By: #### L 503.0105, [id number], L100.0100, L506.1000 #### [facility] [address] [place], [address] Platelets (Bld) [#/Vol] 227 10*3/uL Normal 150-450 [facility] Comment on above: Performed By: #### L 503.0105, [id number], L100.0100, L506.1000 #### [facility] [address] [place], [address] RBC (Bld) [#/Vol] 3.57 10*6/uL Low 4.2-5.4 [facility] Comment on above: Performed By: #### L 503.0105, [id number], L100.0100, L506.1000 #### [facility] [address] [place], [address] RDW SD 45.3 fl High 35.1-43.9 [facility] Comment on above: Performed By: #### L 503.0105, [id number], L100.0100, L506.1000 #### [facility] [address] [place], [address] WBC (Bld) [#/Vol] 7.1 10*3/uL Normal 4.4-11.0 [facility] Comment on above: Performed By: #### L 503.0105, [id number], L100.0100, L506.1000 #### [facility] [address] [place], [address] [facility] Albumin [Mass/Vol] 3.6 g/dL Normal 3.2-5.0 [facility] Comment on above: Performed By: #### L 503.0105, [id number], L100.0100, L506.1000 #### [facility] [address] [place], [address] Albumin/Globulin [Mass ratio] 1.1 {ratio} Normal 0.9-2.4 [facility] Comment on above: Performed By: #### L 503.0105, [id number], L100.0100, L506.1000 #### [facility] [address] [place], [address] ALK P 73 U/L Normal 45-117 [facility] Comment on above: Performed By: #### L 503.0105, [id number], L100.0100, L506.1000 #### [facility] [address] [place], [address] ALT [Catalytic activity/Vol] 24 U/L Normal 13-56 [facility] Comment on above: Performed By: #### L 503.0105, [id number], L100.0100, L506.1000 #### [facility] [address] [place], [address] AST [Catalytic activity/Vol] 18 U/L Normal 15-37 [facility] Comment on above: Performed By: #### L 503.0105, [id number], L100.0100, L506.1000 #### [facility] [address] [place], [address] Bilirubin [Mass/Vol] 0.70 mg/dL Normal 0.20-1.00 [facility] Comment on above: Result Comment: For patients on eltrombopag therapy, use of Dimension [place] TBIL is not recommended. Performed By: #### L 503.0105, [id number], L100.0100, L506.1000 #### [facility] [address] [place], [address] BUN/CRE 26.2 RATIO High 10-20 [facility] Comment on above: Performed By: #### L 503.0105, [id number], L100.0100, L506.1000 #### [facility] [address] [place], [address] CA,Total 9.2 mg/dL Normal 8.5-10.1 [facility] Comment on above: Performed By: #### L 503.0105, [id number], L100.0100, L506.1000 #### [facility] [address] [place], [address] Chloride [Moles/Vol] 106 mmol/L Normal 98-107 [facility] Comment on above: Performed By: #### L 503.0105, [id number], L100.0100, L506.1000 #### [facility] [address] [place], [address] CO2 [Moles/Vol] 28.0 mmol/L Normal 21.0-32.0 [facility] Comment on above: Performed By: #### L 503.0105, [id number], L100.0100, L506.1000 #### [facility] [address] [place], [address] Creatinine [Mass/Vol] 0.76 mg/dL Normal 0.55-1.02 [facility] Comment on above: Result Comment: The validity of the calculated GFR GFRAA in patients over 70 years has not been determined. Clinical correlation is essential. Performed By: #### L 503.0105, L500.4050, L100.0100, L506.1000 #### [facility] [address] [place], [address] EST GFR - AA 93 mL/min Normal >60 [facility] Comment on above: Result Comment: Afri can Czech GFR Calc Performed By: #### L 503.0105, [id number], L100.0100, L506.1000 #### [facility] [address] [place], [address] GAP 4 Low 5-15 [facility] Comment on above: Performed By: #### L 503.0105, [id number], L100.0100, L506.1000 #### [facility] [address] [place], [address] GFR/1.73 sq M.predicted among non-blacks MDRD (S/P/Bld) [Vol rate/Area] 77 mL/min/{1.73_m2} Normal >60 [facility] Comment on above: Result Comment: Non- GFR Calc Performed By: #### L 503.0105, L500.4050, L100.0100, L506.1000 #### [facility] [address] [place], [address] Globulin (S) [Mass/Vol] 3.4 g/dL Normal 2.2-4.2 [facility] Comment on above: Performed By: #### L 503.0105, [id number], L100.0100, L506.1000 #### [facility] [address] [place], [address] Glucose [Mass/Vol] 90 mg/dL Normal 74-106 [facility] Comment on above: Performed By: #### L 503.0105, [id number], L100.0100, L506.1000 #### [facility] [address] [place], [address] Potassium [Moles/Vol] 4.2 mmol/L Normal 3.5-5.1 [facility] Comment on above: Performed By: #### L 503.0105, [id number], L100.0100, L506.1000 #### [facility] [address] [place], [address] Sodium [Moles/Vol] 138 mmol/L Normal 136-145 [facility] Comment on above: Performed By: #### L 503.0105, [id number], L100.0100, L506.1000 #### [facility] [address] [place], [address] T PROT 7.0 g/dL Normal 6.4-8.2 [facility] Comment on above: Performed By: #### L 503.0105, [id number], L100.0100, L506.1000 #### [facility] [address] [place], [address] Urea nitrogen [Mass/Vol] 20 mg/dL High 7-18 [facility] Comment on above: Performed By: #### L 503.0105, L500.4050, L100.0100, L506.1000 #### [facility] [address] [place], [address] Whole blood hemoglobin A1c/t otal hemoglobin ratio (mass fraction)Ordered By: Dominick Peralta on 05-30-2023 HbA1c (Bld) [Mass fraction] 5.6 % 3.8-5.6 [facility] Comment on above: Normal < 5.7 % Predi abetic 5.7 - 6.4 % Diabetic >or= 6.5 % Please note range changes. Absolute lymphocyte countOrd ered By: Dominick Peralta on 05-28-2023 Lymphocytes Auto (Unsp spec) [#/Vol] 2.41 10*3/uL 0.83-4.51 [facility] Basophil percentageOrdered B y: Dominick Peralta on 05-28-2023 Basophils/100 WBC (Bld) 0.5 % 0-1 [facility] Bilirubin [Mass/Vol] 0.30 mg/dL 0.20-1.00 [facility] Comment on above: For patients on eltr ombopag therapy, use of Dimension [place] TBIL is not recommended. Chloride [Moles/Vol] 106 mmol/L 98-107 [facility] Eosinophils/100 WBC (Bld) 2.3 % 0-5 [facility] Glucose [Mass/Vol] 116 mg/dL 74-106 [facility] Comment on above: Fasting Glucose resu lt from 100 to 125 mg/dL suggests IMPAIRED HOMEOSTASIS per A.D.A. criteria. Neutrophils (Bld) [#/Vol] 5.1 10*3/uL 2.0-7.7 [facility] Neutrophils/100 WBC (Bld) 59.9 % 47-70 [facility] Potassium [Moles/Vol] 3.7 mmol/L 3.5-5.1 [facility] Protein [Mass/Vol] 6.8 g/dL 6.4-8.2 [facility] Sodium [Moles/Vol] 140 mmol/L 136-145 [facility] WBC (Bld) [#/Vol] 8.6 10*3/uL 4.4-11.0 [facility] Blood erythrocytes count (nu mber/volume)Ordered By: Dominick Peralta on 05-28-2023 RBC (Bld) [#/Vol] 3.40 10*6/uL 4.2-5.4 [facility] Blood hemoglobin measurement (mass/volume)Ordered By: Dominick Peralta on 05-28-2023 Hemoglobin (Bld) [Mass/Vol] 10.8 g/dL 12.0-15.0 [facility] Blood lymphocytes/100 leukoc ytesOrdered By: Dominick Peralta on 05-28-2023 Lymphocytes/100 WBC (Bld) 28.2 % 19-41 [facility] Blood monocytes/100 leukocyt esOrdered By: Dominick Peralta on 05-28-2023 Monocytes/100 WBC (Bld) 8.9 % 0-10 [facility] Blood platelet mean volumeOr dered By: Dominick Peralta on 05-28-2023 Platelet mean volume (Bld) [Entitic vol] 12.4 fL 6.2-12.0 [facility] Determination of erythrocyte mean corpuscular volume (MCV)Ordered By: Dominick Peralta on 05-28-2023 MCV (RBC) [Entitic vol] 99.4 fL 81-99 [facility] Hematocrit Auto (Bld) [Volum e fraction]Ordered By: Dominick Peralta on 05-28-2023 Hematocrit (Bld) [Volume fraction] 33.8 % 37-47 [facility] Iron measurement (mass/mass) Ordered By: Dominick Peralta on 05-28-2023 Iron (Unsp spec) [Mass/Mass] 75 ug/dL 50-170 [facility] - Chemistry and C hemistry - challengeOrdered By: Dominick Peralta on 05-28-2023 ALP [Catalytic activity/Vol] 67 U/L 45-117 [facility] ALT [Catalytic activity/Vol] 22 U/L 13-56 [facility] CO2 [Moles/Vol] 28.0 mmol/L 21.0-32.0 [facility] Globulin (S) [Mass/Vol] 3.3 g/dL 2.2-4.2 [facility] Urea nitrogen/Creatinine [Mass ratio] 22.5 mg/mg 10-20 [facility] - Hematology and Cell countsOrdered By: Dominick Peralta on 05-28-2023 Erythrocyte distribution width (RBC) [Entitic vol] 47.8 fL 35.1-43.9 [facility] Erythrocyte distribution width (RBC) [Ratio] 13.1 % 11.6-14.6 [facility] Immature granulocytes/100 WBC (Bld) 0.200 % 0.0-0.9 [facility] Comment on above: IG% - Immature Granu locytes (promyelocytes, myelocytes and metamyelocytes) > 1% indicates that a LEFT SHIFT is Present. MCH (RBC) [Entitic mass] 31.8 pg 27.0-32.0 [facility] Nucleated RBC/100 WBC (Bld) [Ratio] 0 % 0-5 [facility] MCHC Auto (RBC) [Mass/Vol]Or dered By: Dominick Peralta on 05-28-2023 MCHC (RBC) [Mass/Vol] 32.0 g/dL 32-36 [facility] No Panel InformationOrdered By: Dominick Peralta on 05-28-2023 Estimated GFR (MDRD) Amer 70 mL/min >60 [facility] Comment on above: GFR Calc Estimated GFR (MDRD) Non-Af Amer 58 mL/min >60 [facility] Comment on above: Non- GFR Calc Total Iron Binding Capacity 227 ug/dL 250-450 [facility] Vitamin D 25-Hydroxy 35.2 ng/mL [facility] Comment on above: Vitamin D 25(OH) Sta tus Range Deficiency <20 ng/mL (50nmol/L) Insufficiency 20 - 30 ng/mL (50 - 75 nmol/L) Sufficiency 30 - 100 ng/mL (75 - 250 nmol/L) Toxicity >100 ng/mL (>250 nmol/L) Platelets bldOrdered By: Go Peralta on 05-28-2023 Platelets (Bld) [#/Vol] 228 10*3/uL 150-450 [facility] Serum or plasma albumin sam urement (mass/volume)Ordered By: Dominick Peralta on 05-28-2023 Albumin [Mass/Vol] 3.5 g/dL 3.2-5.0 [facility] Serum or plasma albumin/glob ulin mass ratioOrdered By: Dominick Peralta on 05-28-2023 Albumin/Globulin [Mass ratio] 1.1 {ratio} 0.9-2.4 [facility] Serum or plasma calcium sam urement (mass/volume)Ordered By: Dominick Peralta on 05-28-2023 Calcium [Mass/Vol] 8.3 mg/dL 8.5-10.1 [facility] Serum or plasma creatinine m easurement (mass/volume)Ordered By: Dominick Peralta on 05-28-2023 Creatinine [Mass/Vol] 0.98 mg/dL 0.55-1.02 [facility] Comment on above: The validity of the calculated GFR & GFRAA in patients over 70 years has not been determined. Clinical correlation is essential. Serum or plasma ferritin delroy surement (mass/volume)Ordered By: Dominick Peralta on 05-28-2023 Ferritin [Mass/Vol] 257 ng/mL 8-252 [facility] Serum or plasma iron saturat ion measurement (mass fraction)Ordered By: Dominick Peralta on 05-28-2023 Iron saturation [Mass fraction] 33.0 % 15.0-55.0 [facility] Serum or plasma urea nitroge n measurement (mass/volume)Ordered By: Dominick Peralta on 05-28-2023 Urea nitrogen [Mass/Vol] 22 mg/dL 7-18 [facility] Thin prep Papanicolaou smear with manual screeningOrdered By: Dominick Peralta on 05-28-2023 Thin prep Papanicolaou smear with manual screening 16 U/L 15-37 [facility] Thin prep Papanicolaou smear with manual screening 6 5-15 [facility] Absolute lymphocyte countOrd ered By: Dominick Peralta on 04-30-2023 Lymphocytes Auto (Unsp spec) [#/Vol] 1.71 10*3/uL 0.83-4.51 [facility] Basophil percentageOrdered B y: Dominick Peralta on 04-30-2023 Basophils/100 WBC (Bld) 0.4 % 0-1 [facility] Bilirubin [Mass/Vol] 0.40 mg/dL 0.20-1.00 [facility] Comment on above: For patients on eltr ombopag therapy, use of Dimension [place] TBIL is not recommended. Chloride [Moles/Vol] 101 mmol/L 98-107 [facility] Eosinophils/100 WBC (Bld) 1.8 % 0-5 [facility] Glucose [Mass/Vol] 91 mg/dL 74-106 [facility] Neutrophils (Bld) [#/Vol] 4.0 10*3/uL 2.0-7.7 [facility] Neutrophils/100 WBC (Bld) 59.3 % 47-70 [facility] Potassium [Moles/Vol] 3.8 mmol/L 3.5-5.1 [facility] Protein [Mass/Vol] 7.1 g/dL 6.4-8.2 [facility] Sodium [Moles/Vol] 138 mmol/L 136-145 [facility] WBC (Bld) [#/Vol] 6.8 10*3/uL 4.4-11.0 [facility] Blood erythrocytes count (nu mber/volume)Ordered By: Dominick Peralta on 04-30-2023 RBC (Bld) [#/Vol] 3.70 10*6/uL 4.2-5.4 [facility] Blood hemoglobin measurement (mass/volume)Ordered By: Dominick Peralta on 04-30-2023 Hemoglobin (Bld) [Mass/Vol] 11.6 g/dL 12.0-15.0 [facility] Blood lymphocytes/100 leukoc ytesOrdered By: Dominick Peralta on 04-30-2023 Lymphocytes/100 WBC (Bld) 25.1 % 19-41 [facility] Blood monocytes/100 leukocyt esOrdered By: Dominick Peralta on 04-30-2023 Monocytes/100 WBC (Bld) 13.0 % 0-10 [facility] Blood platelet mean volumeOr dered By: Dominick Peralta on 04-30-2023 Platelet mean volume (Bld) [Entitic vol] 11.6 fL 6.2-12.0 [facility] Determination of erythrocyte mean corpuscular volume (MCV)Ordered By: Dominick Peralta on 04-30-2023 MCV (RBC) [Entitic vol] 98.1 fL 81-99 [facility] Hematocrit Auto (Bld) [Volum e fraction]Ordered By: Dominick Peralta on 04-30-2023 Hematocrit (Bld) [Volume fraction] 36.3 % 37-47 [facility] Iron measurement (mass/mass) Ordered By: Dominick Peralta on 04-30-2023 Iron (Unsp spec) [Mass/Mass] 79 ug/dL 50-170 [facility] Laboratory - Chemistry and C hemistry - challengeOrdered By: Dominick Peralta on 04-30-2023 ALP [Catalytic activity/Vol] 73 U/L 45-117 [facility] ALT [Catalytic activity/Vol] 21 U/L 13-56 [facility] CO2 [Moles/Vol] 29.0 mmol/L 21.0-32.0 [facility] Free T4 [Mass/Vol] 1.12 ng/dL 0.76-1.46 [facility] Globulin (S) [Mass/Vol] 3.8 g/dL 2.2-4.2 [facility] Urea nitrogen/Creatinine [Mass ratio] 20.4 mg/mg 10-20 [facility] Laboratory - Hematology and Cell countsOrdered By: Dominick Peralta on 04-30-2023 Erythrocyte distribution width (RBC) [Entitic vol] 46.6 fL 35.1-43.9 [facility] Erythrocyte distribution width (RBC) [Ratio] 12.9 % 11.6-14.6 [facility] Immature granulocytes/100 WBC (Bld) 0.400 % 0.0-0.9 [facility] Comment on above: IG% - Immature Granu locytes (promyelocytes, myelocytes and metamyelocytes) > 1% indicates that a LEFT SHIFT is Present. MCH (RBC) [Entitic mass] 31.4 pg 27.0-32.0 [facility] Nucleated RBC/100 WBC (Bld) [Ratio] 0 % 0-5 [facility] MCHC Auto (RBC) [Mass/Vol]Or dered By: Dominick Peralta on 04-30-2023 MCHC (RBC) [Mass/Vol] 32.0 g/dL 32-36 [facility] No Panel InformationOrdered By: Dominick Peralta on 04-30-2023 Estimated GFR (MDRD) Amer 97 mL/min >60 [facility] Comment on above: GFR Calc Estimated GFR (MDRD) Non-Af Amer 80 mL/min >60 [facility] Comment on above: Non- GFR Calc Thyroid Stimulating Hormone (TSH) 3.17 uIU/mL 0.358-3.74 [facility] Total Iron Binding Capacity 222 ug/dL 250-450 [facility] Vitamin D 25-Hydroxy 36.3 ng/mL [facility] Comment on above: Vitamin D 25(OH) Sta tus Range Deficiency <20 ng/mL (50nmol/L) Insufficiency 20 - 30 ng/mL (50 - 75 nmol/L) Sufficiency 30 - 100 ng/mL (75 - 250 nmol/L) Toxicity >100 ng/mL (>250 nmol/L) Platelets bldOrdered By: Go Peralta on 04-30-2023 Platelets (Bld) [#/Vol] 249 10*3/uL 150-450 [facility] Serum or plasma albumin sam urement (mass/volume)Ordered By: Dominick Peralta on 04-30-2023 Albumin [Mass/Vol] 3.3 g/dL 3.2-5.0 [facility] Serum or plasma albumin/glob ulin mass ratioOrdered By: Dominick Peralta on 04-30-2023 Albumin/Globulin [Mass ratio] 0.9 {ratio} 0.9-2.4 [facility] Serum or plasma calcium sam urement (mass/volume)Ordered By: Dominick Peralta on 04-30-2023 Calcium [Mass/Vol] 8.9 mg/dL 8.5-10.1 [facility] Serum or plasma creatinine m easurement (mass/volume)Ordered By: Dominick Peralta on 04-30-2023 Creatinine [Mass/Vol] 0.74 mg/dL 0.55-1.02 [facility] Comment on above: The validity of the calculated GFR & GFRAA in patients over 70 years has not been determined. Clinical correlation is essential. Serum or plasma ferritin delroy surement (mass/volume)Ordered By: Dominick Peralta on 04-30-2023 Ferritin [Mass/Vol] 312 ng/mL 8252 [facility] Serum or plasma urea nitroge n measurement (mass/volume)Ordered By: Dominick Peralta on 04-30-2023 Urea nitrogen [Mass/Vol] 15 mg/dL 7-18 [facility] Thin prep Papanicolaou smear with manual screeningOrdered By: Dominick Peralta on 04-30-2023 Thin prep Papanicolaou smear with manual screening 17 U/L 15-37 [facility] Thin prep Papanicolaou smear with manual screening 8 5-15 [facility] Absolute lymphocyte countOrd ered By: Dominick Peralta on 10-13-2023 Lymphocytes Auto (Unsp spec) [#/Vol] 2.31 10*3/uL 0.83-4.51 [facility] Basophil percentageOrdered B y: Dominick Peralta on 03-28-2023 Basophils/100 WBC (Bld) 0.8 % 0-1 [facility] Eosinophils/100 WBC (Bld) 2.2 % 0-5 [facility] Neutrophils (Bld) [#/Vol] 4.5 10*3/uL 2.0-7.7 [facility] Neutrophils/100 WBC (Bld) 57.6 % 47-70 [facility] WBC (Bld) [#/Vol] 7.8 10*3/uL 4.4-11.0 [facility] Blood erythrocytes count (nu mber/volume)Ordered By: Dominick Peralta on 03-28-2023 RBC (Bld) [#/Vol] 3.70 10*6/uL 4.2-5.4 [facility] Blood hemoglobin measurement (mass/volume)Ordered By: Dominick Peralta on 03-28-2023 Hemoglobin (Bld) [Mass/Vol] 11.7 g/dL 12.0-15.0 [facility] Blood lymphocytes/100 leukoc ytesOrdered By: Dominick Peralta on 03-28-2023 Lymphocytes/100 WBC (Bld) 29.5 % 19-41 [facility] Blood monocytes/100 leukocyt esOrdered By: Dominick Peralta on 03-28-2023 Monocytes/100 WBC (Bld) 9.8 % 0-10 [facility] Blood platelet mean volumeOr dered By: Dominick Peralta on 03-28-2023 Platelet mean volume (Bld) [Entitic vol] 12.0 fL 6.2-12.0 [facility] Determination of erythrocyte mean corpuscular volume (MCV)Ordered By: Dominick Peralta on 03-28-2023 MCV (RBC) [Entitic vol] 98.6 fL 81-99 [facility] Hematocrit Auto (Bld) [Volum e fraction]Ordered By: Dominick Peralta on 03-28-2023 Hematocrit (Bld) [Volume fraction] 36.5 % 37-47 [facility] Iron measurement (mass/mass) Ordered By: Dominick Peralta on 03-28-2023 Iron (Unsp spec) [Mass/Mass] 77 ug/dL 50-170 [facility] Laboratory - Hematology and Cell countsOrdered By: Dominick Peralta on 03-28-2023 Erythrocyte distribution width (RBC) [Entitic vol] 46.9 fL 35.1-43.9 [facility] Erythrocyte distribution width (RBC) [Ratio] 13.0 % 11.6-14.6 [facility] Immature granulocytes/100 WBC (Bld) 0.100 % 0.0-0.9 [facility] Comment on above: IG% - Immature Granu locytes (promyelocytes, myelocytes and metamyelocytes) > 1% indicates that a LEFT SHIFT is Present. MCH (RBC) [Entitic mass] 31.6 pg 27.0-32.0 [facility] Nucleated RBC/100 WBC (Bld) [Ratio] 0 % 0-5 [facility] MCHC Auto (RBC) [Mass/Vol]Or dered By: Dominick Peralta on 03-28-2023 MCHC (RBC) [Mass/Vol] 32.1 g/dL 32-36 [facility] No Panel InformationOrdered By: Dominick Peralta on 03-28-2023 Total Iron Binding Capacity 245 ug/dL 250-450 [facility] Platelets bldOrdered By: Go Peralta on 03-28-2023 Platelets (Bld) [#/Vol] 254 10*3/uL 150-450 [facility] Serum or plasma ferritin delroy surement (mass/volume)Ordered By: Dominick Peralta on 03-28-2023 Ferritin [Mass/Vol] 440 ng/mL 8-252 [facility] Absolute lymphocyte countOrd ered By: Adriano Arias on 02-16-2023 Lymphocytes Auto (Unsp spec) [#/Vol] 2.26 10*3/uL 0.83-4.51 [facility] Basophil percentageOrdered B y: Adriano Arias on 02-16-2023 Basophils/100 WBC (Bld) 0.8 % 0-1 [facility] Chloride [Moles/Vol] 107 mmol/L 98-107 [facility] Eosinophils/100 WBC (Bld) 6.1 % 0-5 [facility] Glucose [Mass/Vol] 93 mg/dL 74-106 [facility] Neutrophils (Bld) [#/Vol] 2.5 10*3/uL 2.0-7.7 [facility] Neutrophils/100 WBC (Bld) 41.9 % 47-70 [facility] Potassium [Moles/Vol] 4.3 mmol/L 3.5-5.1 [facility] Sodium [Moles/Vol] 140 mmol/L 136-145 [facility] WBC (Bld) [#/Vol] 5.9 10*3/uL 4.4-11.0 [facility] Blood erythrocytes count (nu mber/volume)Ordered By: Adriano Arias on 02-16-2023 RBC (Bld) [#/Vol] 3.21 10*6/uL 4.2-5.4 [facility] Blood hemoglobin measurement (mass/volume)Ordered By: Adriano Arias on 02-16-2023 Hemoglobin (Bld) [Mass/Vol] 10.3 g/dL 12.0-15.0 [facility] Blood lymphocytes/100 leukoc ytesOrdered By: Adriano Arias on 02-16-2023 Lymphocytes/100 WBC (Bld) 38.2 % 19-41 [facility] Blood monocytes/100 leukocyt esOrdered By: Adriano Arias on 02-16-2023 Monocytes/100 WBC (Bld) 12.8 % 0-10 [facility] Blood platelet mean volumeOr dered By: Adriano Arias on 02-16-2023 Platelet mean volume (Bld) [Entitic vol] 11.0 fL 6.2-12.0 [facility] Determination of erythrocyte mean corpuscular volume (MCV)Ordered By: Adriano Arias on 02-16-2023 MCV (RBC) [Entitic vol] 100.3 fL 81-99 [facility] Hematocrit Auto (Bld) [Volum e fraction]Ordered By: Adriano Arias on 02-16-2023 Hematocrit (Bld) [Volume fraction] 32.2 % 37-47 [facility] Laboratory - Chemistry and C hemistry - challengeOrdered By: Adriano Arias on 02-16-2023 CO2 [Moles/Vol] 31.0 mmol/L 21.0-32.0 [facility] Urea nitrogen/Creatinine [Mass ratio] 19.7 mg/mg 10-20 [facility] Laboratory - Hematology and Cell countsOrdered By: Adriano Arias on 02-16-2023 Erythrocyte distribution width (RBC) [Entitic vol] 52.9 fL 35.1-43.9 [facility] Erythrocyte distribution width (RBC) [Ratio] 14.3 % 11.6-14.6 [facility] Immature granulocytes/100 WBC (Bld) 0.200 % 0.0-0.9 [facility] Comment on above: IG% - Immature Granu locytes (promyelocytes, myelocytes and metamyelocytes) > 1% indicates that a LEFT SHIFT is Present. MCH (RBC) [Entitic mass] 32.1 pg 27.0-32.0 [facility] Nucleated RBC/100 WBC (Bld) [Ratio] 0 % 0-5 [facility] MCHC Auto (RBC) [Mass/Vol]Or dered By: Adriano Arias on 02-16-2023 MCHC (RBC) [Mass/Vol] 32.0 g/dL 32-36 [facility] No Panel InformationOrdered By: Adriano Arias on 02-16-2023 Estimated Creatinine Clearance Calc 46.24 ml/min [facility] Estimated GFR (MDRD) Amer 87 mL/min >60 [facility] Comment on above: GFR Calc Estimated GFR (MDRD) Non-Af Amer 72 mL/min >60 [facility] Comment on above: Non- GFR Calc Platelets bldOrdered By: Adriano Arias on 02-16-2023 Platelets (Bld) [#/Vol] 256 10*3/uL 150-450 [facility] Serum or plasma calcium sam urement (mass/volume)Ordered By: Adriano Arias on 02-16-2023 Calcium [Mass/Vol] 8.7 mg/dL 8.5-10.1 [facility] Serum or plasma creatinine m easurement (mass/volume)Ordered By: Adriano Arias on 02-16-2023 Creatinine [Mass/Vol] 0.81 mg/dL 0.55-1.02 [facility] Comment on above: The validity of the calculated GFR & GFRAA in patients over 70 years has not been determined. Clinical correlation is essential. Serum or plasma urea nitroge n measurement (mass/volume)Ordered By: Adriano Arias on 02-16-2023 Urea nitrogen [Mass/Vol] 16 mg/dL 7-18 [facility] Thin prep Papanicolaou smear with manual screeningOrdered By: Adriano Arias on 02-16-2023 Thin prep Papanicolaou smear with manual screening 2 5-15 [facility] Blood hemoglobin measurement (mass/volume)Ordered By: Adriano Arias on 01-28-2023 Hemoglobin (Bld) [Mass/Vol] 8.6 g/dL 12.0-15.0 [facility] Hematocrit Auto (Bld) [Volum e fraction]Ordered By: Adriano Arias on 01-28-2023 Hematocrit (Bld) [Volume fraction] 26.8 % 37-47 [facility] Iron measurement (mass/mass) Ordered By: Adriano Arias on 01-28-2023 Iron (Unsp spec) [Mass/Mass] 60 ug/dL 50-170 [facility] Laboratory - Chemistry and C hemistry - challengeOrdered By: Adriano Arias on 01-28-2023 Cobalamin (Vitamin B12) [Mass/Vol] 518 pg/mL 211-911 [facility] No Panel InformationOrdered By: Adriano Arias on 01-28-2023 Vitamin D 25-Hydroxy 36.6 ng/mL [facility] Comment on above: Vitamin D 25(OH) Sta tus Range Deficiency <20 ng/mL (50nmol/L) Insufficiency 20 - 30 ng/mL (50 - 75 nmol/L) Sufficiency 30 - 100 ng/mL (75 - 250 nmol/L) Toxicity >100 ng/mL (>250 nmol/L) Absolute lymphocyte countOrd ered By: Adriano Arias on 01-26-2023 Lymphocytes Auto (Unsp spec) [#/Vol] 1.77 10*3/uL 0.83-4.51 [facility] Basophil percentageOrdered B y: Adriano Arias on 01-26-2023 Basophils/100 WBC (Bld) 0.4 % 0-1 [facility] Chloride [Moles/Vol] 106 mmol/L 98-107 [facility] Eosinophils/100 WBC (Bld) 1.3 % 0-5 [facility] Glucose [Mass/Vol] 111 mg/dL 74-106 [facility] Comment on above: Fasting Glucose resu lt from 100 to 125 mg/dL suggests IMPAIRED HOMEOSTASIS per A.D.A. criteria. Neutrophils (Bld) [#/Vol] 7.3 10*3/uL 2.0-7.7 [facility] Neutrophils/100 WBC (Bld) 67.6 % 47-70 [facility] Potassium [Moles/Vol] 3.7 mmol/L 3.5-5.1 [facility] Sodium [Moles/Vol] 142 mmol/L 136-145 [facility] WBC (Bld) [#/Vol] 10.8 10*3/uL 4.4-11.0 [facility] Blood erythrocytes count (nu mber/volume)Ordered By: Adriano Arias on 01-26-2023 RBC (Bld) [#/Vol] 2.70 10*6/uL 4.2-5.4 [facility] Blood lymphocytes/100 leukoc ytesOrdered By: Adriano Arias on 01-26-2023 Lymphocytes/100 WBC (Bld) 16.4 % 19-41 [facility] Blood monocytes/100 leukocyt esOrdered By: Adriano Arias on 01-26-2023 Monocytes/100 WBC (Bld) 13.0 % 0-10 [facility] Blood platelet mean volumeOr dered By: Adriano Arias on 01-26-2023 Platelet mean volume (Bld) [Entitic vol] 10.6 fL 6.2-12.0 [facility] Determination of erythrocyte mean corpuscular volume (MCV)Ordered By: Adriano Arias on 01-26-2023 MCV (RBC) [Entitic vol] 95.9 fL 81-99 [facility] Laboratory - Chemistry and C hemistry - challengeOrdered By: Adriano Arias on 01-26-2023 CO2 [Moles/Vol] 28.0 mmol/L 21.0-32.0 [facility] Urea nitrogen/Creatinine [Mass ratio] 23.1 mg/mg 10-20 [facility] Laboratory - Hematology and Cell countsOrdered By: Adriano Arias on 01-26-2023 Erythrocyte distribution width (RBC) [Entitic vol] 51.6 fL 35.1-43.9 [facility] Erythrocyte distribution width (RBC) [Ratio] 14.9 % 11.6-14.6 [facility] Immature granulocytes/100 WBC (Bld) 1.300 % 0.0-0.9 [facility] Comment on above: IG% - Immature Granu locytes (promyelocytes, myelocytes and metamyelocytes) > 1% indicates that a LEFT SHIFT is Present. MCH (RBC) [Entitic mass] 32.2 pg 27.0-32.0 [facility] Nucleated RBC/100 WBC (Bld) [Ratio] 0.3 % 0-5 [facility] MCHC Auto (RBC) [Mass/Vol]Or dered By: Adriano Arias on 01-26-2023 MCHC (RBC) [Mass/Vol] 33.6 g/dL 32-36 [facility] No Panel InformationOrdered By: Adriano Arias on 01-26-2023 Estimated Creatinine Clearance Calc 37.45 ml/min [facility] Estimated GFR (MDRD) Amer 122 mL/min >60 [facility] Comment on above: GFR Calc Estimated GFR (MDRD) Non-Af Amer 101 mL/min >60 [facility] Comment on above: Non- GFR Calc Platelets bldOrdered By: Adriano Arias on 01-26-2023 Platelets (Bld) [#/Vol] 205 10*3/uL 150-450 [facility] Serum or plasma calcium sam urement (mass/volume)Ordered By: Adriano Arias on 01-26-2023 Calcium [Mass/Vol] 8.0 mg/dL 8.5-10.1 [facility] Serum or plasma creatinine m easurement (mass/volume)Ordered By: Adriano Arias on 01-26-2023 Creatinine [Mass/Vol] 0.61 mg/dL 0.55-1.02 [facility] Comment on above: The validity of the calculated GFR & GFRAA in patients over 70 years has not been determined. Clinical correlation is essential. Serum or plasma urea nitroge n measurement (mass/volume)Ordered By: Adriano Arias on 01-26-2023 Urea nitrogen [Mass/Vol] 14 mg/dL 7-18 [facility] Thin prep Papanicolaou smear with manual screeningOrdered By: Adriano Arias on 01-26-2023 Thin prep Papanicolaou smear with manual screening 8 15 [facility] No Panel Informationon 02-13 Stool Neutral Fats Normal . [facility] Work Phone: Comment on above: Normal (<60 Droplets /HPF) Qualitative fecal fat or lip idson 02-13-2022 Fat Ql (Stl) Normal . [facility] Work Phone: Comment on above: Normal (<100 Droplet s/HPF)Performed at: [address] [id number] Director: Patrice Hansen PhD, Phone: [phone] ANES Jose 01-07-2020 ANES POST HNO ID: [id number] Author: Yohana Muhammad Service: Anesthesiology Author Type: Anesthesiologist Type: Anesthesia PostOp Filed: 01/07/2020 9:45 AM Note Text: POST ANESTHESIA EVALUATION NOTE SERVICE DATE: 01/07/2020 SERVICE TIME: 9:45 AM : 1940 Vitals: 01/07/20 0730 01/07/20 0842 Temp: 36.6 ?C (97.9 ?F) 36.2 ?C (97.2 ?F) 01/07/20 0730 01/07/20 0842 01/07/20 0900 BP: 125/64 109/57 117/67 01/07/20 0730 01/07/20 0842 01/07/20 0900 Pulse: 74 78 70 01/07/20 0730 01/07/20 0842 01/07/20 0900 Resp: 18 11 12 01/07/20 0730 01/07/20 0842 01/07/20 0900 SpO2: 99% 99% 99% Validated Vital Signs: Yes POST ANES STATUS: No apparent anesthetic complications. The patient is appropriately hydrated with stable respiratory and cardiovascular status. Patient has safe and adequate airway control. The patient has appropriate pain relief and no significant post operative nausea or vomiting. The patient has achieved baseline mental status. Intra-Operative Events: No Significant Anesthesia Events Further assessment by Anesthesia Service: None Other Remarks: SIGNATURE: Yohana Muhammad MD PATIENT NAME: Lor Kaiser DATE: January 07, 2020 TIME: 9:45 AM PAGER/CONTACT #: [phone] [facility] ANES PREOPon 01-07-2020 ANES PREOP HNO ID: [id number] Author: Yohana Muhammad Service: Anesthesiology Author Type: Anesthesiologist Type: Anesthesia PreOp Filed: 01/07/2020 7:52 AM Note Text: ANESTHESIOLOGY DAY OF SURGERY NOTE SERVICE DATE: 01/07/2020 SERVICE TIME: 07:36 : 1940 Procedure(s) (LRB): DACRYOCYSTORHINOSTOMY (Right) Surgeon(s): Harry Brian Estimated body mass index is 24.64 kg/m? as calculated from the following: Height as of this encounter: 168.9 cm (5' 6.5). Weight as of this encounter: 70.3 kg (155 lb). Most recent hematocrit and potassium results: Hematocrit 35.0 05/10/2013 Potassium 3.9 05/10/2013 ANES DOS/PREOP NOTE: Vitals: 01/07/20 0730 BP: 125/64 Pulse: 74 Resp: 18 Temp: 36.6 ?C (97.9 ?F) TempSrc: Temporal Artery SpO2: 99% Weight: 70.3 kg (155 lb) Height: 168.9 cm (5' 6.5) ACTIVE PROBLEM LIST Constipation Inflamed Seborrheic Keratosis Actinic Keratosis Other Chronic Dermatitis Due to Solar Radiation Other Dyschromia Unspecified Hypertrophic and Atrophic Condition of Skin Other Seborrheic Keratosis NEVI////BENIGN MARGAUX SKIN TRUNK NEVI/////BENIGN MARGAUX SKIN LEG Viral Warts, Unspecified Rectal Bleeding Screening for Colon Cancer Osteopenia PAST MEDICAL HISTORY Diagnosis Date - Internal hemorrhoids without mention of complication - Melanoma of skin, site unspecified Malignant melanoma - Unspecified constipation PAST SURGICAL HISTORY Procedure Laterality Date - CATARACT EXTRACTION HX Bilateral 9 - COLONOSCOP W/ OR W/O [facility] SPEC 08/05/02 Colonoscopy - COLONOSCOP W/ OR W/O [facility] SPEC 05/19/2013 Colonoscopy - COLONOSCOP W/ OR W/O [facility] SPEC 10/07/2018 Colonoscopy - COSMETIC LASER SCLEROTHERAPY EXTENSIVE 05/02/2009 right leg - LAPAROSCOPY SACROCOLPOPEXY VAG PROLPS vaginal suspension - PAST SURGICAL HISTORY OF 3/04 hysterectomy - PAST SURGICAL HISTORY OF skin cancer serveral - PAST SURGICAL HISTORY OF 2009,2009 cataracts - PAST SURGICAL HISTORY OF 2010 hip replacement left - PAST SURGICAL HISTORY OF 2012 knee cyst , right - REMOVAL GALLBLADDER 09/16 Cholecystectomy - REPAIR ING HERNIA,5+Y/O,REDUCIBL 03/31/2017 Hernia repair, inguinal left with mesh plug [facility] - REPAIR ING HERNIA,5+Y/O,REDUCIBL 09/08/2017 left lap recurrent femoral hernia repair, right lap femoral and indirect inguinal hernia repair [facility] FAMILY HISTORY Problem Relation Age of Onset - Diabetes Father - Stroke Father - None Mother - None Sister - None Sister - None Sister - [facility] Social History: Social History Tobacco Use - Smoking status: Never Smoker - Smokeless tobacco: Never Used Substance Use Topics - Alcohol use: No - Drug use: No No current facility-administered medications on file prior to encounter. Current Outpatient Medications on File Prior to Encounter Medication Sig - MYRBETRIQ 25 mg Tb24 25 mg once daily. - MULTIVITAMINS WITH EXTRA C ORAL Take by mouth. - VITAMIN C 500 MG TAB Take one(1) tablet daily. - CALCIUM 500+D 500 MG-200 UNIT TAB Take one(1) tablet two(2) times daily. - OTC NUTRITIONAL SUPPLEMENT black elderberry - alendronate (FOSAMAX) 70 mg tablet Take 70 mg by mouth once each week. Current Facility-Administered Medications Medication Dose Route Frequency Provider Last Rate Last Dose - lactated ringers infusion 30 mL/hr INTRAVENOUS CONTINUOUS Harry Brian Allergies: ALLERGIES Allergen Reactions - Benadryl [Diphenhyd* Other: See Comments Insomnia - Darvon [Propoxyphen* Other: See Comments Sick DOS EXAM: Adequate NPO Status: Yes Anesthetic Risks, Benefits, Alternatives, Personnel and Consent Discussed: Yes Patient agrees to proceed: Yes Previous Anesthesia: No history of adverse event Airway Assessment: MP 1; Neck ROM: Full ROM without neurologic symptoms; Airway Evaluation: No significant abnormalities Symptoms of Sleep Apnea: Age over 50 (79 year old) Dentition: Teeth intact Additional Physical Exam: Lungs: Patient health status unchanged since recent history and physical. See history and physical for exam findings. Cardiac: Patient health status unchanged since recent history and physical. See history and physical for exam findings. Additional Pertinent Findings: N/A Blood Products: Not anticipated for this procedure Anesthetic Plan: MAC with general as back up Anesthetic Monitoring: Standard ASA Monitors Pain Management Plan: Parenteral or Oral ASA Class: 2 Other Medical Problems: None Chronic Beta Greg medication administered within 24 hours: N/A I have interviewed and examined the patient. I have reviewed the medical record and/or the pre-anesthesia evaluation, pertinent labs, and test results. Significant changes in the patient's condition since the History and Physical, not otherwise documented in primary service progress notes: No This contains updated information obtained within 48 hours of Surgery/Procedure. SIGNATURE: Yohana Muhammad MD PATIENT NAME: Lor Kaiser DATE: January 07, 2020 TIME: 7:51 AM CSN: [id number] [facility] HISTORY PHYSICALon 0 HISTORY PHYSICAL HNO ID: [id number] Author: Harry Brian Service: Ophthalmology Author Type: Physician Type: HANDP Filed: 01/07/2020 8:07 AM Note Text: UPDATED HISTORY AND PHYSICAL EXAMINATION SERVICE DATE: 01/07/2020 SERVICE TIME: 8:07 AM PHYSICAL EXAM MUST BE COMPLETED ON ADMISSION The History and Physical (completed in the past 30 days) has been reviewed and the patient has been examined. The contents accurately reflect the patient's condition with the following additions or revisions since the HANDP was completed. Examination indicates no changes. This HANDP can be found in the scanned documents dated 01/05/2020. SIGNATURE: Harry Brian MD PATIENT NAME: Lor Kaiser DATE: January 07, 2020 TIME: 8:07 AM PAGER: [facility] OPERATIVE NOon 01-07-2020 OPERATIVE NO HNO ID: [id number] Author: Harry Brian Service: Ophthalmology Author Type: Physician Type: Operative Report Filed: 01/07/2020 8:40 AM Note Text: OPERATIVE/PROCEDURE REPORT LOG ID: [id number] Surgery/Procedure Date: 01/07/2020 INCISION/PROCEDURE START TIME: 8:16 AM INCISION CLOSE/PROCEDURE END TIME: 8:38 AM Surgeon(s)/Proceduralist (s) and Supervisor Electronics Testing(s): Surgeon(s) and Role: * Harry Brian - Primary Procedure(s): Procedure(s) (LRB): DACRYOCYSTORHINOSTOMY (Right) Pre-Op/Pre-Procedure Diagnosis: Pre-Op Diagnosis Codes: * 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 Operative Indication(s): Epiphora. Anesthesia: Monitored Anesthesia Care Procedure Details: Patient was brought in the operating room, placed under adequate local anesthesia. The face was prepped and draped in the usual sterile fashion for Right tear duct surgery. A Right medial canthal incision was made. Dissection was carried out to the level of the lacrimal fossa. A [place] elevator was used to raise the tissue from the lacrimal fossa which was then infractured. The bony ostium was created using Kerrison rongeurs. Anterior ethmoidectomy and middle turbinectomy was performed at this time after stripping the nasal mucosa. The lacrimal sac was then entered and the anterior and posterior flaps of the sac were excised. The system was then intubated. The nasal packing was removed from the nose. The stents were guided into the nose using a grooved director. They were secured in the nose over a white rubber bumper. The anastomotic site was then packed with Gelfoam and thrombus. The incision was closed using deep sutures of 4-0 chromic and skin sutures of 7-0 Vicryl. A Steri- Strip was placed over the incision. The lacrimal stent was in good position at the end of the case. The patient was returned to the recovery room in satisfactory condition. Estimated Blood Loss: Minimal unless noted here. Specimens: * No specimens in log * Implantable Devices: * No implants in log * Drains: None unless noted here. Complications: None. I/primary surgeon/proceduralist performed the entire procedure. SIGNATURE: Harry Brian MD PATIENT NAME: Lor Kaiser DATE: January 07, 2020 TIME: 8:40 AM PAGER/CONTACT #: [facility] 12-20-2019 [facility] Patient:Blane Kaiser MRN: Height:5' 6.5(1.689 m) Weight:155 lb (70.308 kg) Outpatient Medications as of 01/07/20: OTC NUTRITIONAL SUPPLEMENT MYRBETRIQ 25 mg Tb24 alendronate (FOSAMAX) 70 mg tablet MULTIVITAMINS WITH EXTRA C ORAL VITAMIN C 500 MG TAB CALCIUM 500+D 500 MG-200 UNIT TAB Admission/Clinic Administered Medications as of 01/07/20: lactated ringers infusion Problem List: Constipation [K59.00] Inflamed seborrheic keratosis [L82.0] Actinic keratosis [L57.0] 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] Other dyschromia [L81.9] Unspecified hypertrophic and atrophic condition of skin [L91.9, L90.9] Other seborrheic keratosis [L82.1] NEVI////BENIGN MARGAUX SKIN TRUNK [D23.5] NEVI/////BENIGN MARGAUX SKIN LEG [D23.70] Viral warts, unspecified [B07.9] Rectal bleeding [K62.5] Screening for colon cancer [Z12.11] Osteopenia [M85.80] Allergies: Benadryl [Diphenhydramine Hcl] Darvon [Propoxyphene] Date Verified: 01/07/20 Lab Values No results within the last 30 days for the following basenames: K,HCT Progress Notes ([facility] HOTLINE DEPARTMENT): Mame Adan APRN.RAJENDRA LOPEZ 12/20/2019 9:40 AM Signed Patient referred to [facility] for pre-operative testing. COVID-19 test has been ordered. Scheduling will contact the patient within 24-48hrs to schedule for testing. Mame Adan APRN.CNP Lor Kaiser 40 DOS 01/07/[id number] Harry Brian [facility] Ova and parasites Ova and parasites identified LM Nom (Unsp spec) [facility] Work Phone: Vital Signs Date Time Vital Sign Value Performing Clinician Faci lity 09-16-2023 15:30-0400 Body height [address] Dominick Peralta Work Phone: [facility] 09-16-2023 15:24-0400 Body mass index (BMI) [Ratio] 25.4 kg/m2 Dr. Dominick Peralta Work Phone: [facility] 09-16-2023 15:24-0400 Body weight 69.[address] Dominick Peralta Work Phone: [facility] 09-16-2023 15:24-0400 Diastolic blood pressure 77 mm[Hg] Dr. Dominick Peralta Work Phone: [facility] 09-16-2023 15:24-0400 Systolic blood pressure 121 mm[Hg] Dr. Dominick Peralta Work Phone: [facility] 02-17-2023 16:00-0400 Body temperature 97.5 [degF] Dr. Dominick Pearlta Work Phone: [facility] 02-17-2023 16:00-0400 Diastolic blood pressure 53 mm[Hg] Dr. Dominick Peralta Work Phone: [facility] 02-17-2023 16:00-0400 Heart rate 77 /min Dr. Dominick Peralta Work Phone: [facility] 02-17-2023 16:00-0400 Respiratory rate 14 /min Dr. Dominick Peralta Work Phone: [facility] 02-17-2023 16:00-0400 SaO2% (BldA) [Mass fraction] 98 % Dr. Dominick Peralta Work Phone: [facility] 02-17-2023 16:00-0400 Systolic blood pressure 104 mm[Hg] Dr. Dominick Peralta Work Phone: [facility] 02-12-2023 12:45-0400 Body height [address] Dominick Peralta Work Phone: [facility] 02-12-2023 12:45-0400 Body weight 66.[address] Dominick Peralta Work Phone: [facility] 02-11-2023 09:00-0400 Body mass index (BMI) [Ratio] 24.4 kg/m2 Dr. Dominick Peralta Work Phone: [facility] 01-30-2023 15:35-0400 Body temperature 97.2 [degF] Dr. Dominick Peralta Work Phone: [facility] 01-30-2023 15:35-0400 Diastolic blood pressure 47 mm[Hg] Dr. Dominick Peralta Work Phone: [facility] 01-30-2023 15:35-0400 Heart rate 85 /min Dr. Dominick Peralta Work Phone: [facility] 01-30-2023 15:35-0400 Respiratory rate 14 /min Dr. Dominick Peralta Work Phone: [facility] 01-30-2023 15:35-0400 SaO2% (BldA) [Mass fraction] 99 % Dr. Dominick Peralta Work Phone: [facility] 01-30-2023 15:35-0400 Systolic blood pressure 120 mm[Hg] Dr. Dominick Peralta Work Phone: [facility] 01-29-2023 12:49-0400 Body height [address] Dominick Peralta Work Phone: [facility] 01-29-2023 12:49-0400 Body weight 70.[address] Dominick Peralta Work Phone: [facility] 01-27-2023 23:00-0400 Body mass index (BMI) [Ratio] 25.8 kg/m2 Dr. Dominick Peralta Work Phone: [facility] Encounters Encounter Date Encounter Type Care Provider Facility Start: 11-06-2024 ambulatory Dominick Peralta Facilit y:[facility] Start: 07-07-2024 Encounter for genera l adult medical examination without abnormal findings Aishwarya Valerio NP [facility] Start: 06-02-2024 End: 06-02-2024 ambulatory Dominick Peralta Facility:[facility] Start: 09-23-2023 End: 09-23-[address] Dominick Peralta Work Phone: [facility] Work Phone: Start: 09-23-2023 End: 09-23-[address] Dominick Peralta Work Phone: [facility]-Outpatient Breast Imaging Work Phone: Start: 09-18-2023 Non-patient / Non-visit Dr. Mayra Peralta Work Phone: [facility] Start: 09-18-2023 End: 09-18-[address] Dominick Peralta Work Phone: [facility] Work Phone: Start: 09-18-2023 End: 09-18-[address] Dominick Peralta Work Phone: [facility]-Radiology, [facility] Work Phone: Start: 09-16-2023 End: 09-16-[address] Dominick Peralta Work Phone: [facility] Work Phone: Start: 09-09-2023 End: 09-09-2023 ambulatory [facility] Work Phone: Start: 09-09-2023 End: 09-09-2023 Patient encounter procedure [facility]-Outpatient Bone Densitometry Work Phone: Start: 05-28-2023 End: 05-28-2023 ambulatory [facility] Work Phone: Start: 05-28-2023 End: 05-28-2023 Patient encounter procedure [facility] Start: 05-06-2023 End: 05-06-[address] Dominick Peralta Work Phone: [facility] Work Phone: Start: 05-06-2023 End: 05-06-[address] Dominick Peralta Work Phone: [facility]-Ultrasound, [facility] Work Phone: Start: 04-30-2023 End: 04-30-[address] Dominick Peralta Work Phone: [facility] Start: 03-28-2023 End: 03-28-[address] Dominick Peralta Work Phone: [facility] Work Phone: Start: 03-28-2023 End: 03-28-[address] Dominick Peralta Work Phone: [facility] Start: 01-27-2023 Non-patient / Non-visit Dr. Mayra Peralta Work Phone: [facility] Start: 01-27-2023 End: 01-27-[address] Dominick Peralta Work Phone: [facility] Work Phone: Start: 01-27-2023 End: 01-27-[address] Dominick Peralta Work Phone: [facility]-Cardiovascular Services Work Phone: Start: 01-25-2023 End: 02-18-2023 Evaluation and management of inpatient Dr. Dominick Peralta Work Phone: [facility]-Transitional Care Unit Start: 05-30-2022 End: 05-30-2022 ambulatory [facility] Work Phone: Start: 05-30-2022 End: 05-30-2022 Patient encounter procedure [facility]-Outpatient Breast Imaging Start: 02-13-2022 End: 02-13-2022 ambulatory [facility] Work Phone: Start: 02-13-2022 End: 02-13-2022 Patient encounter procedure [facility]-Laboratory, Specimen Procedures Date Procedure Procedure Detail Performing Clinician Start: 09-23-2023 Screening mammography Celestina Peralta Work Phone: Start: 09-18-[address] Dominick Peralta Work Phone: Start: 09-09-2023 Dual energy X-ray absorptiometry Start: 05-06-2023 US scan of thyroid Dr. Dominick Peralta Work Phone: Start: 02-10-2023 X-ray of both feet Dr. Dominick Peralta Work Phone: Start: 05-30-2022 Screening mammography Ova OR parasites identification Plan of Treatment Date Care Activity Detail Author Start: 03-02-2023 Blood chemistry [facility] Start: 02-23-2023 Blood chemistry [facility] Start: 02-18-2023 Development of care plan [facility] Start: 02-18-2023 Patient discharge [facility] Start: 02-16-2023 Blood chemistry [facility] Start: 02-13-2023 Referral to service [facility] Start: 02-09-2023 Blood chemistry [facility] Start: 02-06-2023 Gait training procedure [facility] Start: 02-02-2023 Blood chemistry [facility] Start: 01-29-2023 Wound care [facility] Start: 01-29-2023 Removal of device [facility] Start: 01-26-2023 Developing a treatment plan [facility] Start: 01-26-2023 Development of care plan [facility] Start: 01-25-2023 End: 01-26-2023 [facility] Start: 01-25-2023 Admission procedure [facility] Start: 01-25-2023 Measuring intake and output [facility] Start: 01-25-2023 Patient referral to dietitian [facility] Start: 01-25-2023 Referral to occupati onal therapist [facility] Start: 01-25-2023 Referral to service [facility] Start: 01-25-2023 Verification routine [facility] Start: 01-25-2023 Vital signs measurements [facility] Start: 01-25-2023 Provision of activity privileges [facility] Anion gap measurement [facility] Anion gap measurement [facility] Anion gap measurement [facility] Anion gap measurement [facility] Anion gap measurement [facility] BUN/Creatinine ratio [facility] BUN/Creatinine ratio [facility] BUN/Creatinine ratio [facility] BUN/Creatinine ratio [facility] BUN/Creatinine ratio [facility] Calcium [Mass/volume ] in Serum or Plasma [facility] Calcium [Mass/volume ] in Serum or Plasma [facility] Calcium [Mass/volume ] in Serum or Plasma [facility] Calcium [Mass/volume ] in Serum or Plasma [facility] Calcium [Mass/volume ] in Serum or Plasma [facility] Carbon dioxide, tota l [Moles/volume] in Serum or Plasma [facility] Carbon dioxide, tota l [Moles/volume] in Serum or Plasma [facility] Carbon dioxide, tota l [Moles/volume] in Serum or Plasma [facility] Carbon dioxide, tota l [Moles/volume] in Serum or Plasma [facility] Carbon dioxide, tota l [Moles/volume] in Serum or Plasma [facility] Chloride [Moles/volu me] in Serum or Plasma [facility] Chloride [Moles/volu me] in Serum or Plasma [facility] Chloride [Moles/volu me] in Serum or Plasma [facility] Chloride [Moles/volu me] in Serum or Plasma [facility] Chloride [Moles/volu me] in Serum or Plasma [facility] Creatinine [Moles/vo lume] in Serum or Plasma [facility] Creatinine [Moles/vo lume] in Serum or Plasma [facility] Creatinine [Moles/vo lume] in Serum or Plasma [facility] Creatinine [Moles/vo lume] in Serum or Plasma [facility] Creatinine [Moles/vo lume] in Serum or Plasma [facility] Glucose [Mass/volume ] in Serum or Plasma [facility] Glucose [Mass/volume ] in Serum or Plasma [facility] Glucose [Mass/volume ] in Serum or Plasma [facility] Glucose [Mass/volume ] in Serum or Plasma [facility] Glucose [Mass/volume ] in Serum or Plasma [facility] Hematocrit [Volume F raction] of Blood [facility] Hematocrit [Volume F raction] of Blood [facility] Hematocrit [Volume F raction] of Blood [facility] Hematocrit [Volume F raction] of Blood [facility] Hematocrit [Volume F raction] of Blood [facility] Hemoglobin [Mass/vol ume] in Blood [facility] Hemoglobin [Mass/vol ume] in Blood [facility] Hemoglobin [Mass/vol ume] in Blood [facility] Hemoglobin [Mass/vol ume] in Blood [facility] Hemoglobin [Mass/vol ume] in Blood [facility] Leukocytes [#/volume] in Blood [facility] Leukocytes [#/volume] in Blood [facility] Leukocytes [#/volume] in Blood [facility] Leukocytes [#/volume] in Blood [facility] Leukocytes [#/volume] in Blood [facility] Mean corpuscular hem oglobin concentration determination [facility] Mean corpuscular hem oglobin concentration determination [facility] Mean corpuscular hem oglobin concentration determination [facility] Mean corpuscular hem oglobin concentration determination [facility] Mean corpuscular hem oglobin concentration determination [facility] Mean corpuscular hem oglobin determination [facility] Mean corpuscular hem oglobin determination [facility] Mean corpuscular hem oglobin determination [facility] Mean corpuscular hem oglobin determination [facility] Mean corpuscular hem oglobin determination [facility] Measurement of renal function [facility] Measurement of renal function [facility] Measurement of renal function [facility] Measurement of renal function [facility] Measurement of renal function [facility] MG Breast - bilateral Screening [facility] Neutrophil count [facility] Neutrophil count [facility] Neutrophil count [facility] Neutrophil count [facility] Neutrophil count [facility] Neutrophil percent d ifferential count [facility] Neutrophil percent d ifferential count [facility] Neutrophil percent d ifferential count [facility] Neutrophil percent d ifferential count [facility] Neutrophil percent d ifferential count [facility] Patient referral [facility] Work Phone: Platelets [#/volume] in Blood [facility] Platelets [#/volume] in Blood [facility] Platelets [#/volume] in Blood [facility] Platelets [#/volume] in Blood [facility] Platelets [#/volume] in Blood [facility] Potassium [Moles/vol ume] in Serum or Plasma [facility] Potassium [Moles/vol ume] in Serum or Plasma [facility] Potassium [Moles/vol ume] in Serum or Plasma [facility] Potassium [Moles/vol ume] in Serum or Plasma [facility] Potassium [Moles/vol ume] in Serum or Plasma [facility] Red blood cell count [facility] Red blood cell count [facility] Red blood cell count [facility] Red blood cell count [facility] Red blood cell count [facility] Red cell distributio n width determination [facility] Red cell distributio n width determination [facility] Red cell distributio n width determination [facility] Red cell distributio n width determination [facility] Red cell distributio n width determination [facility] Sodium [Moles/volume ] in Serum or Plasma [facility] Sodium [Moles/volume ] in Serum or Plasma [facility] Sodium [Moles/volume ] in Serum or Plasma [facility] Sodium [Moles/volume ] in Serum or Plasma [facility] Sodium [Moles/volume ] in Serum or Plasma [facility] Urea nitrogen [Mass/ volume] in Serum or Plasma [facility] Urea nitrogen [Mass/ volume] in Serum or Plasma [facility] Urea nitrogen [Mass/ volume] in Serum or Plasma [facility] Urea nitrogen [Mass/ volume] in Serum or Plasma [facility] Urea nitrogen [Mass/ volume] in Serum or Plasma [facility] Immunizations Immunization Date Immunization Notes Care Provider [facility] 02-13-2023 Pneumococcal Vaccine PCV20 (Prevnar 20) Dr. Dominick Peralta Work Phone: [facility] 03-06-2022 influenza, injectabl e, quadrivalent, preservative free Dr. Dominick Peralta Work Phone: [facility] 03-06-2022 influenza, seasonal, injectable Dr. Dominick Peralta Work Phone: [facility] 05-28-2021 Covid (Moderna) Dr. Dominick kelley Work Phone: [facility] 04-04-2021 influenza, high dose seasonal, preservative-free Dr. Dominick Peralta Work Phone: [facility] 09-11-2020 Covaz (Moderna) [facility] 08-14-2020 Covid (Moderna) [facility] 03-21-2020 Influenza, injectabl e, Madin Whitlash Canine Kidney, preservative free, quadrivalent Dr. Dominick Peralta Work Phone: [facility] 10-22-2019 pneumococcal polysaccharide vaccine, [address] Dominick Peralta Work Phone: [facility] 10-22-2019 tetanus toxoid, redu mary lou diphtheria toxoid, and acellular pertussis vaccine, adsorbed Dr. Dominick Peralta Work Phone: [facility] 05-04-2019 influenza, injectabl e, quadrivalent, preservative free Dr. Dominick Peralta Work Phone: [facility] 05-04-2019 influenza, seasonal, injectable Dr. Dominick Peralta Work Phone: [facility] 05-06-2017 influenza, high dose seasonal, preservative-free Dr. Dominick Peralta Work Phone: [facility] 06-14-2009 novel influenza-H1N1 -09, preservative-free, injectable Dr. Dominick Peralta Work Phone: [facility] 03-17-2009 influenza, injectabl e, quadrivalent, preservative free Dr. Dominick Peralta Work Phone: [facility] 03-17-2009 influenza, seasonal, injectable Dr. Dominick Peralta Work Phone: [facility] 04-24-2007 influenza, injectabl e, quadrivalent, preservative free Dr. Dominick Peralta Work Phone: [facility] 04-24-2007 influenza, seasonal, injectable Dr. Dominick Peralta Work Phone: [facility] Payers Date Payer Category Payer Self-pay [id number] 2024 Unknown [id number] 2007 Unknown COMMERCIAL OTHER [id number] 2005 Medicare [id number] Unknown [id number] Unknown [id number] Social History Date Type Detail Facility Start: 11-12-2019 End: 03-17-2023 Tobacco smoking status NHIS Unknown if ever smoked [facility] Start: 1940 Sex Assigned At Female [facility] Medical Equipment Procedure Code Equipment Code Equipment Origin al Text Equipment Identifier Dates MESH,LIGHT 3D LE FT LG FDA Start: 09-08-2017 MESH,LIGHT 3D RI GHT LG FDA Start: 09-08-2017 STAPLER,PROTACK 5MM HERNIA FDA Start: 09-08-2017 TACKER,SECURE STRAP FDA Start : 09-08-2017 MESH,LIGHT 3D LE FT LG FDA Start: 09-08-2017 MESH,LIGHT 3D RI GHT LG FDA Start: 09-08-2017 STAPLER,PROTACK 5MM HERNIA FDA Start: 09-08-2017 TACKER,SECURE STRAP FDA Start : 09-08-2017 MESH,LIGHT 3D LE FT LG FDA Start: 09-08-2017 MESH,LIGHT 3D RI GHT LG FDA Start: 09-08-2017 STAPLER,PROTACK 5MM HERNIA FDA Start: 09-08-2017 TACKER,SECURE STRAP FDA Start : 09-08-2017 MESH,LIGHT 3D LE FT LG FDA Start: 09-08-2017 MESH,LIGHT 3D RI GHT LG FDA Start: 09-08-2017 STAPLER,PROTACK 5MM HERNIA FDA Start: 09-08-2017 TACKER,SECURE STRAP FDA Start : 09-08-2017 MESH,LIGHT 3D LE FT LG FDA Start: 09-08-2017 MESH,LIGHT 3D RI GHT LG FDA Start: 09-08-2017 STAPLER,PROTACK 5MM HERNIA FDA Start: 09-08-2017 TACKER,SECURE STRAP FDA Start : 09-08-2017 MESH,LIGHT 3D LE FT LG FDA Start: 09-08-2017 MESH,LIGHT 3D RI GHT LG FDA Start: 09-08-2017 STAPLER,PROTACK 5MM HERNIA FDA Start: 09-08-2017 TACKER,SECURE STRAP FDA Start : 09-08-2017 MESH,LIGHT 3D LE FT LG FDA Start: 09-08-2017 MESH,LIGHT 3D RI GHT LG FDA Start: 09-08-2017 STAPLER,PROTACK 5MM HERNIA FDA Start: 09-08-2017 TACKER,SECURE STRAP FDA Start : 09-08-2017 MESH,LIGHT 3D LE FT LG FDA Start: 09-08-2017 MESH,LIGHT 3D RI GHT LG FDA Start: 09-08-2017 STAPLER,PROTACK 5MM HERNIA FDA Start: 09-08-2017 TACKER,SECURE STRAP FDA Start : 09-08-2017 MESH,LIGHT 3D LE FT LG FDA Start: 09-08-2017 MESH,LIGHT 3D RI GHT LG FDA Start: 09-08-2017 STAPLER,PROTACK 5MM HERNIA FDA Start: 09-08-2017 TACKER,SECURE STRAP FDA Start : 09-08-2017 MESH,LIGHT 3D LE FT LG FDA Start: 09-08-2017 MESH,LIGHT 3D RI GHT LG FDA Start: 09-08-2017 STAPLER,PROTACK 5MM HERNIA FDA Start: 09-08-2017 TACKER,SECURE STRAP FDA Start : 09-08-2017 Goals Date Patient Goal Desired Activity /State Functional Status Date Assessment Result Facility 02-18-2023 Functional status Bedrest [facility] Work Phone: 01-31-2023 Functional status Bedrest;Bedside Commode [facility] Work Phone: Mental Status Date Assessment Result Facility 02-18-2023 Cognitive function Awake;Alert [facility] Work Phone: 02-17-2023 Cognitive function Arousable To Voice/Nam e [facility] Work Phone: 02-14-2023 Cognitive function Appropriate;Cooperativ e [facility] Work Phone: 01-30-2023 Cognitive function Voice/Name [facility] Work Phone: 01-28-2023 Cognitive function Appropriate;[facility] Work Phone: Procedure note 09-18-2023 Note Date & Type Note Facility 09-18-2023 Procedure note [facility] Discharge summary 02-13-2023 Note Date & Type Note Facility 02-13-2023 Discharge summary Note Date/Time February 13, 2023 7:23pm [facility] Medical Records Department [address] [place] [address] Discharge Summary 02/13/231921 MR#: [id number] Acct: [id number] Name: LOR KAISER Rep #:[id number] : 1940 82 From: Adriano Arias MD PCP: Dr. Dominick Peralta MD Status:AD M IN Location: [place] [address] Providers Date of Admission: 01/25/23 Primary Care Physician: Dr. 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: Status: Acute Code(s): M97.02XA - 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, initial encounter (4) Overactive bladder: Status: Acute Code(s): N32.81 - Overactive bladder (5) Osteoarthritis: Status: Acute Code(s): M19.90 - Unspecified osteoarthritis, unspecified site (6) Multinodular goiter: Status: Acute Code(s): E04.2 - Nontoxic multinodular goiter Plan 82 year old female with below past medical history hospitalized for left periprosthetic hip fracture, underwent ORIF left subtrochanteric proximal femurfracture 01/22/2023, admitted to TCU with debility, here for rehabilitation, strengthening, prior to discharge home with . * Debility - PT/OT. * Pain - Tylenol 1000mg q8, Tramadol 50mg q6 prn pain (1-5), Oxycodone 5mg q4 prn pain (6-10). * Bowel - Miralax 17gm daily, senna/colace 2 tablets bid, Dulcolax 10mg pr daily prn, Magnesium citrate 300ml daily prn. * Adult immunization - Administer pneumonia vaccine, covid19 vaccine, flu vaccine as appropriate. * DVT prophylaxis - Lovenox 40mg sc daily. * Calcium deficiency - Calcium D 1 tablet daily. * Insomnia - Temazepam 15mg qhs prn, stable chronic custodial use, GDR not recommended. * Overactive bladder - Tolterodine 4mg daily. * Left lower extremity swelling - Doppler ultrasound left lower extremity to evaluate for DVT. Medications at Discharge Home Medications mirabegron 25 mg tablet,extended release 24 hr 25 mg PO DAILY Overactive bzgteyp13/13/16 calcium carb-ergocalciferol (vit D2) 600 mg calcium-200 unit tablet 1 tab PO DAILY Supplement 01/25/23 temazepam 15 mg capsule 15 mg PO QHS PRN sleep 01/25/23 acetaminophen 500 mg tablet 1,000 mg (2 x 500 mg) PO Q6H PRN PRN Pain Score 1-10#0 tabs 02/13/23 ascorbic acid (vitamin C) 500 mg tablet 500 mg PO BREAKFAST 30 days #30 tabs 02/13/23 melatonin 10 mg sublingual tablet 10 mg PO QHS 30 days #30 tabs 02/13/23 polysaccharide iron complex 150 mg iron capsule (Ferrex) 150 mg PO DAILYCM 30 days #30 caps 02/13/23 rivaroxaban 20 mg tablet (Xarelto) 20 mg PO DINNER 30 days #30 tabs 02/13/23 tramadol 50 mg tablet 50 mg PO Q6H PRN PRN Pain Score 1-5 7 days #28 tabs 02/13/23 Hospital Course Operations - (See below.) Procedures None Summary of Care Provided Minutes Spent on Discharge: 35 Hospital Course: 82 year old female with below past medical history hospitalized for left periprosthetic hip fracture, underwent ORIF left subtrochanteric proximal femurfracture 01/22/2023, admitted to TCU with debility, here for rehabilitation, strengthening, prior to discharge home with . 01/27/2023 Doppler ultrasound left lower extremity positive DVT, treat with Xarelto thru 04/29/2023. Discharge home with 02/18/2023, [facility] PT/OT, wheelchair. Physical Exam Const alert General Appearance: cooperative HEENT normocephalic Eyes PERRL and EOMs intact bilaterally Neck supple, no JVD and no carotid bruits Resp normal respiratory effort, normal air movement and clear to auscultation bilaterally Cardio regular rate and regular rhythm GI normal to inspection, nondistended, normoactive bowel sounds, non-tender and non-distended Extremity normal capillary refill General Extremity: Negative for edema Skin no rashes or lesions noted General Skin Exam: no breakdown Psych affect normal Appearance: appropriate Weight / BMI Weight Weight: 66.497 kg Body Mass Index (BMI) 24.4 ABG / Lab / Microbiology Data 02/09/23 07:15 02/09/23 07:15 D/C Instructions Discharge Diet: No restrictions Discharge Activity: Return to Normal Activity, May Shower and Use Walker Weight Bearing Status: Weight bearing as tolerated Call your doctor if you observe: Fever of 101 or Higher, Inability to urinate, Inability to have a bowel movement, Shortness of breath, Dizziness, Fainting spells, Swelling in the ankles, Chest pain and Uncontrolled pain Additional Instructions: Discharge home with 02/18/2023, [facility] PT/OT, wheelchair. Please Follow Up With: Manfred Flores MD When: As scheduled. Meaningful Use Info Meaningful Use Diagnoses (Choose all that apply): None applicable Discharge Plan Admission Admit Date/Time: 01/25/23 22:06 Primary Reason for Your Visit: Debility. Attending Provider: Adriano Arias Chi Primary Care Provider: Dominick Peralta Instructions Additional Instructions / Restrictions: Discharge home with 02/18/2023, [facility] PT/OT, wheelchair. Discharge Orders/Prescriptions Prescriptions: New tramadol 50 mg Tablet 50 mg PO Q6H PRN PRN (Reason: Pain Score 1-5) 7 Days Qty: 28 0RF acetaminophen 500 mg Tablet 1,000 mg PO Q6H PRN PRN (Reason: Pain Score 1-10) Qty: 0 0RF ascorbic acid (vitamin C) 500 mg Tablet 500 mg PO BREAKFAST 30 Days Qty: 30 0RF polysaccharide iron complex [Ferrex 150] 150 mg iron Capsule 150 mg PO DAILYCM 30 Days Qty: 30 0RF melatonin 10 mg Tablet, Sublingual 10 mg PO QHS 30 Days Qty: 30 0RF Xarelto 20 mg Tablet 20 mg PO DINNER 30 Days Qty: 30 0RF Continued mirabegron 25 MG tablet extended release 24 hr 25 mg PO DAILY Patient Comments: TAKE 1 TABLET BY MOUTH DAILY calcium carbonate-vitamin D2 600 mg calcium- 200 unit tablet 1 tab PO DAILY temazepam 15 mg capsule 15 mg PO QHS PRN (Reason: sleep) Discontinued polyethylene glycol 3350 [Miralax] 17 gram/dose powder 17 g PO DAILY multivitamin capsule 1 cap PO DAILY Hold Instructions: Order Changed ascorbic acid (vitamin C) 1,000 MG tablet extended release 500 mg PO DAILY Hold Instructions: Order Changed calcium-vitamin D3-vitamin K 1 EACH tablet,chewable 2 ea PO DAILY Hold Instructions: Order Changed psyllium husk (aspartame) 1 PACKET packet 1 packet PO DAILY PRN (Reason: Constipation) Hold Instructions: Order Changed sennosides-docusate sodium [Senna with Docusate Sodium] 8.6-50 mg tablet 1 tab-cap PO BID enoxaparin [Lovenox] 30 mg/0.3 mL syringe 30 mg subcut Q12H Rx Instructions: Stop 11/05/2022 08:59 hydrocodone-acetaminophen 5-325 mg tablet 1 tab PO Q4H PRN (Reason: pain) Rx Instructions: Administer 1 tab for pain 4-6 Administer 2 tabs for pain 7-10 bisacodyl 10 mg suppository 10 mg CO DAILY PRN (Reason: constipation) tramadol 50 mg tablet 50 mg PO Q4H PRN (Reason: pain) Rx Instructions: For pain 1-3 Referrals / Follow Up: Dominick Peralta MD [Primary Care Provider] - (Please schedule appt for 02/18 or 02/19 for [facility] to follow.) Manfred Flores MD [Med Staff - Active Staff] - 03/12/23 2:15 pm Disposition Disposition (needs filled in before D/C Order can be placed): Home Health Service 02/13/231928 <Electronically signed by Adriano Arias MD> Cosigner Signature (if applicable): CC: Dr. Dominick Peralta MD; Dr. Adriano Arias MD~ Signed [facility] Work Phone: Progress note 01-27-2023 Note Date & Type Note Facility 01-27-2023 Progress note Note Date/Time January 27, 2023 2:51pm [facility] Medical Records Department [address] [place] [address] Progress Note - Pharmacy 01/27/23 1447 MR#: [id number] Acct: [id number] Name: LOR KAISER Rep #:[id number] : 1940 82 From: Madalyn Castellanos PCP: Dr. Dominick Peralta MD Status:AD M IN Location: TCU [place] [address] Documented by User: Madalyn Castellanos 01/27/23 14:59 TCU RX Drug Regimen Review Subjective/Objective Subjective/Objective: Subjective: TCU Admission. 82 YOF presented to outside ER with a fall. Hospitalized for left periprosthetic hip fracture, underwent ORIF left subtrochanteric proximal femur fracture 01/22/2023. Admitted to TCU with debility for strengthening and rehabilitation. Objective: Allergies adhesive tape Adverse Reaction (Verified 02/05/22 15:22) Rash AND BANDAIDS Current Medications Generic Name Dose Route Start Last Admin Trade Name Freq PRN Reason Stop Dose Admin Acetaminophen 1,000 mg 01/26/23 08:30 01/27/23 13:46 Acetaminophen 500 Mg Tablet PO 500 mg Q8 YOSI Administration Bisacodyl 10 mg 01/25/23 23:25 01/26/23 06:48 Bisacodyl 10 Mg Suppository RC 10 mg DAILY PRN Administration constipation Calcium/Vitamin D 1 tablet 01/26/23 08:00 01/27/23 08:15 Calcium Carb/Vitamin D 1 Tablet Tablet PO 1 tablet 0800 YOSI Administration Magnesium Citrate 300 ml 01/26/23 08:19 Magnesium Citrate 300 Ml PO DAILY PRN Constipation Oxycodone HCl 5 mg 01/26/23 08:19 Oxycodone 5 Mg Tablet PO Q4H PRN PRN Pain Score 6-10 Polyethylene Glycol 17 gm 01/26/23 06:00 01/27/23 06:55 Polyethylene Glycol 3350 17 Gm Packet PO Not Given DAILY [facility] Rivaroxaban 15 mg 01/27/23 17:00 Rivaroxaban 15 Mg Tablet PO 02/17/23 17:01 BIDCM YOSI Rivaroxaban 20 mg 02/18/23 17:00 Rivaroxaban 20 Mg Tablet PO 05/19/23 17:01 DINNER [facility] Senna/Docusate Sodium 2 tablet 01/26/23 18:00 01/27/23 06:54 Senna/Docusate Sodium 1 Tablet PO 2 tablet BID YOSI Administration Temazepam 15 mg 01/25/23 23:25 Temazepam 15 Mg Capsule PO QHS PRN PRN sleep Tolterodine Tartrate 4 mg 01/26/23 06:00 01/27/23 06:55 Tolterodine Tartrate 4 Mg Cap.Sa PO 4 mg DAILY YOSI Administration Tramadol HCl 50 mg 01/26/23 08:20 Tramadol 50 Mg Tablet PO Q6H PRN PRN Pain Score 1-5 Tuberculin PPD 0.1 ml 02/02/23 10:00 Tuberculin,Purif.Prot.Deriv. 50 Tu/Ml Vial ID 02/02/23 10:01 X1 ONE Problem List (Updated 01/25/23 @ 23:[address] Adriano Arias MD) Multinodular goiter (Acute) Osteoarthritis (Acute) Overactive bladder (Acute) 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 (Acute) Fall (Acute) Debility (Acute) Vital Signs Temp Pulse Resp BP Pulse Ox O2 Del Method 98.3 F 93 14 115/48 L 97 Room Air 01/27/23 14:42 01/27/23 14:42 01/27/23 14:42 01/27/23 14:42 01/27/23 14:42 01/27/23 14:42 Oxygen Delivery Method Room Air Weight: 71.894 kg Body Mass Index (BMI) 26.4 Sodium 142 mmol/L (136-145) 01/26/23 06:30 Potassium 3.7 mmol/L (3.5-5.1) 01/26/23 06:30 Chloride 106 mmol/L (98-107) 01/26/23 06:30 Carbon Dioxide 28.0 mmol/L (21.0-32.0) 01/26/23 06:30 Anion Gap 8 (5-15) 01/26/23 06:30 BUN 14 mg/dL (7-18) 01/26/23 06:30 Creatinine 0.61 mg/dL (0.55-1.02) 01/26/23 06:30 Est GFR (MDRD) Af Amer 122 mL/min (>60) 01/26/23 06:30 Est GFR (MDRD) Non-Af 101 mL/min (>60) 01/26/23 06:30 BUN/Creatinine Ratio 23.1 RATIO (10-20) H 01/26/23 06:30 Glucose 111 mg/dL (74-106) H 01/26/23 06:30 Assessment/Plan: 1. Pain: acetaminophen 1,000 mg PO Q8, tramadol 50 mg PO Q6H PRN pain (1-5) and oxycodone 5 mg PO Q4H PRN pain (6-10). The resident has not had any PRN usage oftramadol or oxycodone. Continue to monitor for s/s of pain and PRN usage. 2. Bowel: Miralax 17 gm PO daily, senna/docusate 2 tablets PO BID, bisacodyl suppository 10 mg rectally daily PRN constipation and magnesium citrate 300 mL PO daily PRN for no BM in 3 or more days. The resident used a PRN bisacodyl suppository on 01/26 and has had no prn usage of magnesium citrate; she has had 3BMs so far today, 01/27. Please continue to monitor for s/s of constipation and for PRN usage of bisacodyl and magnesium citrate.? 3. DVT: rivaroxaban 15mg PO BIDCM thru 02/17/23 then 20mg PO DINNER from 02/18/23 - 05/19/23. Please continue to monitor for S/S of bleeding and hemoglobin (last 8.3g/dL). 4. Overactive bladder: tolterodine 4 mg PO daily. Continue to monitor for s/s ofdementia, cognitive impairment, and/or delirium (Beer?s Criteria).? 5. Calcium deficiency: calcium 500 mg/Vitamin D 1 tablet PO daily. Continue to monitor serum calcium levels (8 on 01/26) and vitamin D. Please consider orderinga vitamin D level as the last level was from 01/2021. Thanks. Assessment/Plan for indications treated with psychotropic medications: 1. Insomnia: temazepam 15 mg PO QHS PRN for insomnia. Please see physician note regarding GDR. The resident has not had any PRN usage of this medication. 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 Medical chart and medication regimen reviewed. The following medication irregularities or issues were identified: 1. Calcium/vitamin D. Please consider ordering a vitamin D level as the last level was from 01/2021. Thanks. The recommended calcium intake for adults aged > 70 years is 1,200 mg (given in two divided doses). The patient is currently onlyon 500 mg of calcium daily, and her last serum calcium level was 8 on 01/26.?Please consider increasing to BID to increase the amount of calcium (as long as vitamin D level is not high.) Date Date of Note:: 01/27/23 Documented by User: Dr. Adriano Arias MD 01/27/23 17:18 TCU RX Drug Regimen Review Provider Comments Provider responsibility Provider Comments to Recommendations by Pharmacy: Agree 01/27/23 1457 <Electronically signed by Madalyn Castellanos> Madalyn Castellanos Cosign Signature (if applicable): 01/27/23 1718 <Electronically signed by Adriano Arias MD> CC: ~ Signed [facility] Work Phone: History and physical note 01-27-2023 Note Date & Type Note Facility 01-27-2023 History and physi mari note Note Date/Time January 25, 2023 11:05pm [facility] Medical Records Department [address] [place] [address] History & Physical Exam 01/25/23 7566 MR#: [id number] Acct: [id number] Name: LOR KAISER Rep #:[id number] : 1940 82 From: Adriano Arias MD PCP: Dr. Dominick Peralta MD Status:AD M IN Location: [facility] TCU07-1 HPI - General General Date of Admission: 01/25/23 Date of Service: 01/27/23 Chief Complaint: Here for rehabilitation. HPI Narrative LOR KAISER, is a 82 Female who presents with followin01/21/2023 Admit to [facility] ([place], [place]) Visiting grandchildren, ground level fall, left periprosthetic proximal femurfracture. Twisted, fell in kitchen. Immediate pain, weakness left lower extremity. 01/22/2023 Dr. Berman performed ORIF left subtrochanteric proximal femur fracture, complicated due to periprosthetic fracture. Ancef Postop. NWB left lower extremity x 6 weeks, then WBAT. Lovenox for DVT prophylaxis. 01/25/2023 Admit to TCU with debility, here for rehabilitation, strengthening, prior to discharge home with . REPLACED BY [facility] Medical History (Updated 01/25/23 @ 23:[address] Adriano Arias MD) Arthritis Constipation History of back problems Multinodular goiter Home Medications mirabegron 25 mg tablet,extended release 24 hr 25 mg PO DAILY Overactive ahyayso59/13/16 [History Last Taken 01/25/23] ascorbic acid (vitamin C) 1,000 mg tablet,extended release 500 mg PO DAILY Supplement 03/24/17 [History Last Taken Unknown] calcium 650 mg-vitamin D3 12.5 mcg-vitamin K 40 mcg chewable tablet 2 ea PO DAILY Supplement 03/24/17 [History Last Taken Unknown] psyllium husk (aspartame) 3.4 gram oral powder packet 1 packet PO DAILY PRN Constipation 09/04/17 [History Last Taken Unknown] multivitamin 1 cap PO DAILY Supplement 11/05/19 [History Last Taken Unknown] polyethylene glycol 3350 17 gram/dose oral powder (Miralax) 17 g PO DAILY Constipation 11/05/19 [History Last Taken 01/24/23] bisacodyl 10 mg rectal suppository 10 mg CO DAILY PRN constipation 01/25/23 [History Last Taken Unknown] calcium carb-ergocalciferol (vit D2) 600 mg calcium-200 unit tablet 1 tab PO DAILY Supplement 01/25/23 [History Last Taken 01/25/23] enoxaparin 30 mg/0.3 mL subcutaneous syringe (Lovenox) 30 mg subcut Q12H Anticoagulant 01/25/23 [History Last Taken 01/25/23] hydrocodone-acetaminophen 5-325mg 5mg-325mg 1 tab PO Q4H PRN pain 01/25/23 [History Last Taken Unknown] sennosides 8.6 mg-docusate sodium 50 mg tablet (Senna with Docusate Sodium) 1 tab-cap PO BID Constipation 01/25/23 [History Last Taken 01/25/23] temazepam 15 mg capsule 15 mg PO QHS PRN sleep 01/25/23 [History Last Taken Unknown] tramadol 50 mg tablet 50 mg PO Q4H PRN pain 01/25/23 [History Last Taken Unknown] Allergy/AdvReac Type Severity Reaction Status Date / Time adhesive tape AdvReac Rash Verified 02/05/22 15:22 Family History Father Arthritis Diabetes CVA (cerebral vascular accident) Brother Diabetes Mother Cancer skin cancer Surgical History history anterior and posterior repair history left femoral hernia repair History of bilateral cataract extraction History of hysterectomy History of laparoscopic cholecystectomy History of tonsillectomy and adenoidectomy History of total left hip replacement History of tubal ligation Social History (Updated 01/25/23 @ 23:[address] Adriano Arias MD) household members: spouse Smoking Status: Never smoker alcohol intake: never substance use type: does not use ROS Constitutional Constitutional: Denies chills, fever(s) or weight gain ENT HEENT: Denies headache(s), nasal congestion or nasal discharge Cardiovascular Cardiovascular: Denies chest pain or palpitations Respiratory/Chest Respiratory/Chest: Denies cough, excessive phlegm production or shortness of breath with exertion Gastrointestinal Gastrointestinal: Denies abdominal pain, nausea or vomiting Genitourinary Genitourinary: Denies dysuria Musculoskeletal Musculoskeletal: Denies joint pain or joint swelling Integumentary Integumentary: Denies rash or wounds Neurologic Neurologic: Denies focal weakness, numbness or tingling Psychiatric Psychiatric: Denies anxiety, auditory hallucinations, depression, homicidal ideation or suicidal ideation Physical Exam Const alert General Appearance: cooperative HEENT normocephalic Eyes PERRL and EOMs intact bilaterally Neck supple, no JVD and no carotid bruits Resp normal respiratory effort, normal air movement and clear to auscultation bilaterally Cardio regular rate and regular rhythm GI normal to inspection, nondistended, normoactive bowel sounds, non-tender and non-distended Extremity normal capillary refill General Extremity: edema left lower extremity Skin no rashes or lesions noted General Skin Exam: no breakdown Psych affect normal Appearance: appropriate Results Lab / Micro Data 01/27/23 05:42 01/26/23 06:30 Assessment & Plan Assessment/Plan (1) Debility: (2) Fall: (3) 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: (4) Overactive bladder: (5) Osteoarthritis: (6) Multinodular goiter: PLAN: Plan 82 year old female with below past medical history hospitalized for left periprosthetic hip fracture, underwent ORIF left subtrochanteric proximal femurfracture 01/22/2023, admitted to TCU with debility, here for rehabilitation, strengthening, prior to discharge home with . * Debility - PT/OT. * Pain - Tylenol 1000mg q8, Tramadol 50mg q6 prn pain (1-5), Oxycodone 5mg q4 prn pain (6-10). * Bowel - Miralax 17gm daily, senna/colace 2 tablets bid, Dulcolax 10mg pr daily prn, Magnesium citrate 300ml daily prn. * Adult immunization - Administer pneumonia vaccine, covid19 vaccine, flu vaccine as appropriate. * DVT prophylaxis - Lovenox 40mg sc daily. * Calcium deficiency - Calcium D 1 tablet daily. 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 * Overactive bladder - Tolterodine 4mg daily. * Left lower extremity swelling - Doppler ultrasound left lower extremity to evaluate for DVT. 01/27/23 08 <Electronically signed by Adriano Arias MD> Cosigner Signature (if applicable): CC: Dr. Dominick Peralta MD; Dr. Adriano Arias MD~ Signed [facility] Work Phone: Clinical Note 07-20-2020 Note Date & Type Note Facility 07-20-2020 Note Patient Outreach ([facility]) JOBLOR Rhiannon ([id number]) 1940 F Date Time Provider Department 07/20/20 TAY, LUIS MATTHEWS During your visit today, we recorded the following information about you: Allergies As of Date: 07/20/2020 Noted Allergy Reaction BENADRYL (DIPHENHYDRAMINE HCL) 01/06/2020 14 - Other: See Comments Comments: Insomnia DARVON (PROPOXYPHENE) 01/06/2020 14 - Other: See Comments Comments: Sick Date Reviewed: 01/07/2020 Reviewed by: Apoorva (Rn) CHACHA Reyes - Fully Assessed Order(s):SARS-COVID VACCINE 1ST DOSE APPT [[id number]] Order #: [id number] FUTURE Prescriptions as of 07/20/2020 Sig: OTC NUTRITIONAL SUPPLEMENT black elderberry MYRBETRIQ 25 MG TABLET,EXTEND* 25 mg once daily. ALENDRONATE 70 MG TABLET Take 70 mg by mouth once each* MULTIVITAMINS WITH EXTRA C OR* Take by mouth. * VITAMIN C 500 MG TABLET Take one(1) tablet daily. 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] 01/07/2020 01/07/2020 Letter Text Encounter Status:Closed by EPIC, PRODUSER on 07/24/20 [facility] Evaluation note Note Date & Type Note Facility Evaluation note No assessment information availa ble [facility] Work Phone: Evaluation note Note Date & Type Note Facility Evaluation note Diagnosis Onset Date Debility acute Fall acute Multinodular goiter acute Osteoarthritis acute Overactive bladder acute Periprosthetic fracture arou nd internal prosthetic left hip joint acute [facility] Work Phone: Evaluation note Note Date & Type Note Facility Evaluation note Diagnosis Onset Date Debility acute Osteoarthritis acute Overactive bladder acute Fall resolved Multinodular goiter resolved Periprosthetic fracture arou nd internal prosthetic left hip joint resolved [facility] Work Phone: Evaluation note Note Date & Type Note Facility Evaluation note Diagnosis Onset Date Well woman exam with routine gynecological exam acute Left shoulder pain acute [facility] Work Phone: Summary Purpose Family History No Family History Records Found Relationship Condition Age at Onset Recorded Date/T stephania father Arthritis Unknown Diabetes mellitus Unknown Cerebrovascular accident (CVA) Unknown brother Diabetes mellitus Unknown mother Malignant neoplasm Unknown Advance Directives No Advanced Directives Records Found Advance Directive Response Recorded Date/ Time Advance Directives No May 9:33am Living Will No October 28, 2018 7 :56pm Power of Mine Utility Operator No October 28, 2018 7:56pm Advance Directive Response Recorded Date/ Time Advance Directives No May 8:33am Living Will No October 28, 2018 6 :56pm Power of Mine Utility Operator No October 28, 2018 6:56pm Advance Directive Response Recorded Date/ Time Advance Directives No May 9:33am Living Will No January 28 3 2:42pm Power of Mine Utility Operator No January 28 023 2:42pm Advance Directive Response Recorded Date/ Time Advance Directives No March 17, 2023 10:19am Living Will No March 17 3 10:19am Power of Mine Utility Operator No March 17 023 10:19am Advance Directive Response Recorded Date/ Time Advance Directives No March 17, 2023 9:19am Living Will No March 17 3 9:19am Power of Mine Utility Operator No March 17 023 9:19am Chief Complaint and Reason for Visit Chief Complaint SCREENING Chief Complaint LEFT HIP FX, ORIF left leg swelling Reason for Visit Debility Fall Multinodular goiter Osteoarthritis Overactive bladder 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 Chief Complaint LEFT HIP FX, ORIF left leg swelling Reason for Visit Debility Osteoarthritis Overactive bladder Fall Multinodular goiter 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 Chief Complaint LEFT HIP FX, ORIF left leg swelling GOITER Reason for Visit Debility Osteoarthritis Overactive bladder Fall Multinodular goiter 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 Chief Complaint MENOPAUSAL AND PERIM ENOPAUSAL Chief Complaint MENOPAUSAL AND PERIM ENOPAUSAL prolapse care, fmr [place] pt PAIN IN LEFT SHOULDER PAIN IN LEFT SHOULDER Reason for Visit Well woman exam with routine gynecological exam Left shoulder pain Chief Complaint MENOPAUSAL AND PERIM ENOPAUSAL prolapse care, fmr [place] pt PAIN IN LEFT SHOULDER PAIN IN LEFT SHOULDER SCREENING Reason for Visit Well woman exam with routine gynecological exam Left shoulder pain Chief Complaint LEFT HIP FX, ORIF GOITER Reason for Visit Debility Osteoarthritis Overactive bladder Fall Multinodular goiter 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 Additional Source Comments INFORMATION SOURCE (unrecogn ized section and content) DATE CREATED AUTHOR 01/09/2020 DATE CREATED AUTHOR AUTHOR'S ORGANIZ ATION 07/04/2021 [facility] DATE CREATED AUTHOR AUTHOR'S ORGANIZ ATION 11/12/2024 [facility] Goals (unrecognized section and content) Goals may be documented in a n alternate sectionGoals may be documented in an alternate sectionGoals may be documented in an alternate sectionGoals may be documented in an alternate sectionGoals may be documented in an alternate section Care Teams (unrecognized sec tion and content) Team Status: Active Member Role Status Dates Dr. Dominick Flores MD Family Provider Active Dr. Dominick Peralta MD Primary Care Provider Active Team Status: Active Member Role Status Dates Dr. Dominick Peralta MD Primary Care Provider Active Dr. Neil Aguilar MD Attending Provider Active Team Status: Active Member Role Status Dates Dr. Dominick Peralta MD Primary Care Provider Active Dr. Adriano Arias MD Admit Provider, At tending Provider, Referring Provider Active Team Status: Inactive Member Role Status Dates Dr. Dominick Peralta MD Primary Care Provider Active Dr. Adriano Arias MD Attending Provider, Referring Pr ovider Active Team Status: Active Member Role Status Dates Dr. Dominick Peralta MD Primary Care Provider Active Dr. Neil Aguilar MD Attending Provider Active Dr. Adriano Arias MD Referring Provider Active Team Status: Inactive Member Role Status Dates Dr. Dominick Peralta MD Primary Care Provider Active Dr. Adriano Arias MD Admit Provider, At tending Provider, Referring Provider Active Team Status: Inactive Member Role Status Dates Dr. Dominick Peralta MD Primary Care Provider, Attend ing Provider Active Team Status: Inactive Member Role Status Dates Dr. Dominick Peralta MD Primary Care Pr ovider, Attending Provider, Referring Provider Active Team Status: Inactive Member Role Status Dates Dr. Dominick Peralta MD Primary Care Provider, Referr ing Provider Active Dr. Gladys Banerjee DO Attending Provider Activ e Team Status: Active Member Role Status Dates Dr. Dominick Peralta MD Primary Care Provider Active Dr. Kee Seay MD Referring Provider, Other Provi tano Active LON Galan Attending Provider Active Team Status: Inactive Member Role Status Dates Dr. Dominick Peralta MD Primary Care Provider Active Dr. Kee Seay MD Attending Provider, Referring P troy Active Team Status: Inactive Member Role Status Dates Dr. Dominick Peralta MD Primary Care Provider Active Dr. Gladys Banerjee DO Attending Provider, Refe rring Provider Active FOR RECORDS PERTAINING TO PATIENTS WHO ARE OR HAVE BEEN ENROLLED IN A CHEMICAL DEPENDENCY/SUBSTANCEABUSE PROGRAM, SOME INFORMATION MAY BE OMITTED. This clinical summary was aggregated from multiple sources. Caution should be exercised in using it in the provision of clinical care. This summary normalizes information from multiple sources, and as a consequence, information in this document may materially change the coding, format and clinical context of patient data. In addition, data may be omitted in some cases. CLINICAL DECISIONS SHOULD BE BASED ON THE PRIMARY CLINICAL RECORDS. [employer] [facility]. provides no warranty or guarantee of the accuracy or completeness of information in this document.
--- OUTSIDE RECORDS SUMMARY | 2025-04-13 10:34 | XMS RPT_ITS | CCD ---
Author Organization [facility] Care Team Providers Care Early Childhood Special Educator Name Role Phone Dr. Dominick Peralta Primary Care Provider [phone] Dr. Neil Aguilar Attending Provider Dr. Adriano Arias Chi Referring Provider Dr. Dominick Peralta Primary Care Provider Dr. Dominick Peralta Referring Provider Dr. Gladys Banerjee Attending Provider Dr. Kee Seay Referring Provider [phone] Dr. Kee Seay Other Provider LON Patel Attending Provider [phone] Dominick Peralta Primary Care Unavailable Aishwarya Valerio NP Attending Unavailable Teodoro RETAIL MERCHANDISING SPECIALISTAishwarya Referring Unavailable Dominick Peralta Primary Care Unavailable Manfred Flores Attending Unavailable Manfred Flores Referring Unavailable Allergies Allergy Classification Reported Allergen(s) Allergy Type Date of Onset Reaction(s) Facility (3 sources) Adhesive Tape; Translations: [adhesive tape] Propensity to adverse reactions 2 [facility] Repository Medications Current Medications Medication Drug Class(es) [...] September 16, 2023 12:00am polyethylene glycol 3350 80397 mg powder for oral solution (12 sources) [...] 7:25pm docusate sodium 50 mg / sennosides, penitentiary 8.6 mg oral tablet (8 sources) Start: [...] (Vitamin B12) [Mass/Vol] 314 pg/mL Normal 211-[address] [facility] Comment on above: Performed By: #### L 503.0105, L500.4050, L100.0100, L506.1000 #### [facility] [address] [place], [address] Vitamin D,25 Hydroxyon 06-03 Vitamin D 25-OH 27.6 ng/mL Normal [facility] Comment on above: Result Comment: Citlaly min D 25(OH) Status Range Deficiency <20 ng/mL (50nmol/L) Insufficiency 20 - 30 ng/mL (50 - 75 nmol/L) Sufficiency 30 - 100 ng/mL (75 - 250 nmol/L) Toxicity >100 ng/mL (>250 nmol/L) Performed By: #### L 503.0105, L500.4050, L100.0100, [id number] #### [facility] [address] [place], [address] CBC W/Diff, Automatedon - Absolute Lymph 2.27 X10 3/uL Normal 0.83-4.[address] [facility] Comment on above: Performed By: #### L 503.0105, L500.4050, L100.0100, L506.1000 #### [facility] [address] [place], [address] Absolute Neut 3.8 X10 3/uL Normal 2.0-7.[address] [facility] Comment on above: Performed By: #### L 503.0105, L500.4050, L100.0100, [id number] #### [facility] [address] [place], [address] Basophils/100 WBC (Bld) 0.6 % Normal 0-[address] [facility] Comment on above: Performed By: #### L 503.0105, [id number], L100.0100, L506.1000 #### [facility] [address] [place], [address] Eosinophils/100 WBC (Bld) 1.8 % Normal 0-[address] [facility] Comment on above: Performed By: #### L 503.0105, L500.4050, L100.0100, L506.1000 #### [facility] [address] [place], [address] Erythrocyte distribution width (RBC) [Ratio] 12.6 % Normal 11.6-14.[address] [facility] Comment on above: Performed By: #### L 503.0105, [id number], L100.0100, [id number] #### [facility] [address] [place], [address] Hematocrit (Bld) [Volume fraction] 34.8 % Low 37-[address] [facility] Comment on above: Performed By: #### L 503.0105, [id number], L100.0100, L506.1000 #### [facility] [address] [place], [address] Hemoglobin (Bld) [Mass/Vol] 11.5 g/dL Low 12.0-15.[address] [facility] Comment on above: Performed By: #### L 503.0105, [id number], L100.0100, L506.1000 #### [facility] [address] [place], [address] IG% 0.100 Normal 0.0-0.[address] [facility] Comment on above: Result Comment: IG% - Immature Granulocytes (promyelocytes, myelocytes and metamyelocytes) > 1% indicates that a LEFT SHIFT is Present. Performed By: #### L 503.0105, L500.4050, L100.0100, L506.1000 #### [facility] [address] [place], [address] Lymphocytes/100 WBC (Bld) 32.2 % Normal 19-[address] [facility] Comment on above: Performed By: #### L 503.0105, [id number], L100.0100, L506.1000 #### [facility] [address] [place], [address] MCH (RBC) [Entitic mass] 32.2 pg High 27.0-32.[address] [facility] Comment on above: Performed By: #### L 503.0105, [id number], L100.0100, L506.1000 #### [facility] [address] [place], [address] MCHC (RBC) [Mass/Vol] 33.0 g/dL Normal 32-36 [facility] Comment on above: Performed By: #### L 503.0105, [id number], L100.0100, L506.1000 #### [facility] [address] [place], [address] MCV (RBC) [Entitic vol] 97.5 fL Normal 81-[address] [facility] Comment on above: Performed By: #### L 503.0105, [id number], L100.0100, L506.1000 #### [facility] [address] [place], [address] Monocytes/100 WBC (Bld) 11.6 % High 0-[address] [facility] Comment on above: Performed By: #### L 503.0105, [id number], L100.0100, L506.1000 #### [facility] [address] [place], [address] Neutrophils/100 WBC (Bld) 53.7 % Normal 47-[address] [facility] Comment on above: Performed By: #### L 503.0105, [id number], L100.0100, L506.1000 #### [facility] [address] [place], [address] Nucleated RBC (Bld) [#/Vol] 0 10*3/uL Normal 0-[address] [facility] Comment on above: Performed By: #### L 503.0105, [id number], L100.0100, L506.1000 #### [facility] [address] [place], [address] Platelet mean volume (Bld) [Entitic vol] 12.0 fL Normal 6.2-12.[address] [facility] Comment on above: Performed By: #### L 503.0105, [id number], L100.0100, L506.1000 #### [facility] [address] [place], [address] Platelets (Bld) [#/Vol] 227 10*3/uL Normal 150-[address] [facility] Comment on above: Performed By: #### L 503.0105, [id number], L100.0100, L506.1000 #### [facility] [address] [place], [address] RBC (Bld) [#/Vol] 3.57 10*6/uL Low 4.2-5.4 [facility] Comment on above: Performed By: #### L 503.0105, [id number], L100.0100, L506.1000 #### [facility] [address] [place], [address] RDW SD 45.3 fl High 35.1-43.[address] [facility] Comment on above: Performed By: #### L 503.0105, [id number], L100.0100, L506.1000 #### [facility] [address] [place], [address] WBC (Bld) [#/Vol] 7.1 10*3/uL Normal 4.4-11.0 [facility] Comment on above: Performed By: #### L 503.0105, [id number], L100.0100, L506.1000 #### [facility] [address] [place], [address] [facility] Albumin [Mass/Vol] 3.6 g/dL Normal 3.2-5.0 [facility] Comment on above: Performed By: #### L 503.0105, [id number], L100.0100, L506.1000 #### [facility] [address] [place], [address] Albumin/Globulin [Mass ratio] 1.1 {ratio} Normal 0.9-2.[address] [facility] Comment on above: Performed By: #### L 503.0105, [id number], L100.0100, L506.1000 #### [facility] [address] [place], [address] ALK P 73 U/L Normal 45-[address] [facility] Comment on above: Performed By: #### L 503.0105, [id number], L100.0100, L506.1000 #### [facility] [address] [place], [address] ALT [Catalytic activity/Vol] 24 U/L Normal 13-[address] [facility] Comment on above: Performed By: #### L 503.0105, L500.4050, L100.0100, L506.1000 #### [facility] [address] [place], [address] AST [Catalytic activity/Vol] 18 U/L Normal 15-[address] [facility] Comment on above: Performed By: #### L 503.0105, [id number], L100.0100, L506.1000 #### [facility] [address] [place], [address] Bilirubin [Mass/Vol] 0.70 mg/dL Normal 0.20-1.00 [facility] Comment on above: Result Comment: For patients on eltrombopag therapy, use of Dimension [place] TBIL is not recommended. Performed By: #### L 503.0105, L500.4050, L100.0100, L506.1000 #### [facility] [address] [place], [address] BUN/CRE 26.2 RATIO High 10-[address] [facility] Comment on above: Performed By: #### L 503.0105, [id number], L100.0100, L506.1000 #### [facility] [address] [place], [address] CA,Total 9.2 mg/dL Normal 8.5-10.[address] [facility] Comment on above: Performed By: #### L 503.0105, [id number], L100.0100, L506.1000 #### [facility] [address] [place], [address] Chloride [Moles/Vol] 106 mmol/L Normal 98-107 [facility] Comment on above: Performed By: #### L 503.0105, L500.4050, L100.0100, L506.1000 #### [facility] [address] [place], [address] CO2 [Moles/Vol] 28.0 mmol/L Normal 21.0-32.[address] [facility] Comment on above: Performed By: #### L 503.0105, [id number], L100.0100, L506.1000 #### [facility] [address] [place], [address] Creatinine [Mass/Vol] 0.76 mg/dL Normal 0.55-1.02 [facility] Comment on above: Result Comment: The validity of the calculated GFR GFRAA in patients over 70 years has not been determined. Clinical correlation is essential. Performed By: #### L 503.0105, L500.4050, L100.0100, L506.1000 #### [facility] [address] [place], [address] EST GFR - AA 93 mL/min Normal >[address] [facility] Comment on above: Result Comment: Afri can [place] GFR Calc Performed By: #### L 503.0105, L500.4050, L100.0100, L506.1000 #### [facility] [address] [place], [address] GAP 4 Low 5-[address] [facility] Comment on above: Performed By: #### L 503.0105, [id number], L100.0100, L506.1000 #### [facility] [address] [place], [address] GFR/1.73 sq M.predicted among non-blacks MDRD (S/P/Bld) [Vol rate/Area] 77 mL/min/{1.73_m2} Normal >[address] [facility] Comment on above: Result Comment: Non- GFR Calc Performed By: #### L 503.0105, L500.4050, L100.0100, L506.1000 #### [facility] [address] [place], [address] Globulin (S) [Mass/Vol] 3.4 g/dL Normal 2.2-4.[address] [facility] Comment on above: Performed By: #### L 503.0105, L500.4050, L100.0100, L506.1000 #### [facility] [address] [place], [address] Glucose [Mass/Vol] 90 mg/dL Normal 74-106 [facility] Comment on above: Performed By: #### L 503.0105, L500.4050, L100.0100, L506.1000 #### [facility] [address] [place], [address] Potassium [Moles/Vol] 4.2 mmol/L Normal 3.5-5.1 [facility] Comment on above: Performed By: #### L 503.0105, L500.4050, L100.0100, L506.1000 #### [facility] [address] [place], [address] Sodium [Moles/Vol] 138 mmol/L Normal 136-145 [facility] Comment on above: Performed By: #### L 503.0105, L500.4050, L100.0100, L506.1000 #### [facility] [address] [place], [address] T PROT 7.0 g/dL Normal 6.4-8.[address] [facility] Comment on above: Performed By: #### L 503.0105, L500.4050, L100.0100, L506.1000 #### [facility] [address] [place], [address] Urea nitrogen [Mass/Vol] 20 mg/dL High 7-[address] [facility] Comment on above: Performed By: #### L 503.0105, L500.4050, L100.0100, L506.1000 #### [facility] [address] [place], [address] Whole blood hemoglobin A1c/t otal hemoglobin ratio (mass fraction)Ordered By: Dominick Peralta on 05-30-2023 HbA1c (Bld) [Mass fraction] 5.6 % 3.8-5.[address] [facility] Comment on above: Normal < 5.7 % Predi abetic 5.7 - 6.4 % Diabetic >or= 6.5 % Please note range changes. Absolute lymphocyte countOrd ered By: Dominick Peralta on 05-28-2023 Lymphocytes Auto (Unsp spec) [#/Vol] 2.41 10*3/uL 0.83-4.[address] [facility] Basophil percentageOrdered B y: Dominick Peralta on 05-28-2023 Basophils/100 WBC (Bld) 0.5 % 0-[address] [facility] Bilirubin [Mass/Vol] 0.30 mg/dL 0.20-1.00 [facility] Comment on above: For patients on eltr ombopag therapy, use of Dimension [place] TBIL is not recommended. Chloride [Moles/Vol] 106 mmol/L 98-107 [facility] Eosinophils/100 WBC (Bld) 2.3 % 0-[address] [facility] Glucose [Mass/Vol] 116 mg/dL 74-106 [facility] Comment on above: Fasting Glucose resu lt from 100 to 125 mg/dL suggests IMPAIRED HOMEOSTASIS per A.D.A. criteria. Neutrophils (Bld) [#/Vol] 5.1 10*3/uL 2.0-7.[address] [facility] Neutrophils/100 WBC (Bld) 59.9 % 47-[address] [facility] Potassium [Moles/Vol] 3.7 mmol/L 3.5-5.1 [facility] Protein [Mass/Vol] 6.8 g/dL 6.4-8.2 [facility] Sodium [Moles/Vol] 140 mmol/L 136-145 [facility] WBC (Bld) [#/Vol] 8.6 10*3/uL 4.4-11.0 [facility] Blood erythrocytes count (nu mber/volume)Ordered By: Dominick Peralta on 05-28-2023 RBC (Bld) [#/Vol] 3.40 10*6/uL 4.2-5.4 [facility] Blood hemoglobin measurement (mass/volume)Ordered By: Dominick Peralta on 05-28-2023 Hemoglobin (Bld) [Mass/Vol] 10.8 g/dL 12.0-15.[address] [facility] Blood lymphocytes/100 leukoc ytesOrdered By: Dominick Peralta on 05-28-2023 Lymphocytes/100 WBC (Bld) 28.2 % 19-[address] [facility] Blood monocytes/100 leukocyt esOrdered By: Dominick Peralta on 05-28-2023 Monocytes/100 WBC (Bld) 8.9 % 0-[address] [facility] Blood platelet mean volumeOr dered By: Dominick Peralta on 05-28-2023 Platelet mean volume (Bld) [Entitic vol] 12.4 fL 6.2-12.[address] [facility] Determination of erythrocyte mean corpuscular volume (MCV)Ordered By: Dominick Peralta on 05-28-2023 MCV (RBC) [Entitic vol] 99.4 fL 81-[address] [facility] Hematocrit Auto (Bld) [Volum e fraction]Ordered By: Dominick Peralta on 05-28-2023 Hematocrit (Bld) [Volume fraction] 33.8 % 37-[address] [facility] Iron measurement (mass/mass) Ordered By: Dominick Peralta on 05-28-2023 Iron (Unsp spec) [Mass/Mass] 75 ug/dL 50-[address] [facility] - Chemistry and C hemistry - challengeOrdered By: Dominick Peralta on 05-28-2023 ALP [Catalytic activity/Vol] 67 U/L 45-[address] [facility] ALT [Catalytic activity/Vol] 22 U/L 13-[address] [facility] CO2 [Moles/Vol] 28.0 mmol/L 21.0-32.[address] [facility] Globulin (S) [Mass/Vol] 3.3 g/dL 2.2-4.[address] [facility] Urea nitrogen/Creatinine [Mass ratio] 22.5 mg/mg 10-[address] [facility] - Hematology and Cell countsOrdered By: Dominick Peralta on 05-28-2023 Erythrocyte distribution width (RBC) [Entitic vol] 47.8 fL 35.1-43.[address] [facility] Erythrocyte distribution width (RBC) [Ratio] 13.1 % 11.6-14.[address] [facility] Immature granulocytes/100 WBC (Bld) 0.200 % 0.0-0.[address] [facility] Comment on above: IG% - Immature Granu locytes (promyelocytes, myelocytes and metamyelocytes) > 1% indicates that a LEFT SHIFT is Present. MCH (RBC) [Entitic mass] 31.8 pg 27.0-32.[address] [facility] Nucleated RBC/100 WBC (Bld) [Ratio] 0 % 0-[address] [facility] MCHC Auto (RBC) [Mass/Vol]Or dered By: Dominick Peralta on 05-28-2023 MCHC (RBC) [Mass/Vol] 32.0 g/dL 32-36 [facility] No Panel InformationOrdered By: Dominick Peralta on 05-28-2023 Estimated GFR (MDRD) Amer 70 mL/min >[address] [facility] Comment on above: GFR Calc Estimated GFR (MDRD) Non-Af Amer 58 mL/min >[address] [facility] Comment on above: Non- GFR Calc Total Iron Binding Capacity 227 ug/dL 250-[address] [facility] Vitamin D 25-Hydroxy 35.2 ng/mL [facility] Comment on above: Vitamin D 25(OH) Sta tus Range Deficiency <20 ng/mL (50nmol/L) Insufficiency 20 - 30 ng/mL (50 - 75 nmol/L) Sufficiency 30 - 100 ng/mL (75 - 250 nmol/L) Toxicity >100 ng/mL (>250 nmol/L) Platelets bldOrdered By: Go Peralta on 05-28-2023 Platelets (Bld) [#/Vol] 228 10*3/uL 150-[address] [facility] Serum or plasma albumin sam urement (mass/volume)Ordered By: Dominick Peralta on 05-28-2023 Albumin [Mass/Vol] 3.5 g/dL 3.2-5.0 [facility] Serum or plasma albumin/glob ulin mass ratioOrdered By: Dominick Peralta on 05-28-2023 Albumin/Globulin [Mass ratio] 1.1 {ratio} 0.9-2.[address] [facility] Serum or plasma calcium sam urement (mass/volume)Ordered By: Dominick Peralta on 05-28-2023 Calcium [Mass/Vol] 8.3 mg/dL 8.5-10.1 [facility] Serum or plasma creatinine m easurement (mass/volume)Ordered By: Dominick Peralta on 05-28-2023 Creatinine [Mass/Vol] 0.98 mg/dL 0.55-1.02 [facility] Comment on above: The validity of the calculated GFR & GFRAA in patients over 70 years has not been determined. Clinical correlation is essential. Serum or plasma ferritin delroy surement (mass/volume)Ordered By: Dominick Peralta on 05-28-2023 Ferritin [Mass/Vol] 257 ng/mL 8-252 [facility] Serum or plasma iron saturat ion measurement (mass fraction)Ordered By: Dominick Peralta on 05-28-2023 Iron saturation [Mass fraction] 33.0 % 15.0-55.[address] [facility] Serum or plasma urea nitroge n measurement (mass/volume)Ordered By: Dominick Peralta on 05-28-2023 Urea nitrogen [Mass/Vol] 22 mg/dL 7-[address] [facility] Thin prep Papanicolaou smear with manual screeningOrdered By: Dominick Peralta on 05-28-2023 Thin prep Papanicolaou smear with manual screening 16 U/L 15-[address] [facility] Thin prep Papanicolaou smear with manual screening 6 5-[address] [facility] Absolute lymphocyte countOrd ered By: Dominick Peralta on 04-30-2023 Lymphocytes Auto (Unsp spec) [#/Vol] 1.71 10*3/uL 0.83-4.[address] [facility] Basophil percentageOrdered B y: Dominick Peralta on 04-30-2023 Basophils/100 WBC (Bld) 0.4 % 0-[address] [facility] Bilirubin [Mass/Vol] 0.40 mg/dL 0.20-1.00 [facility] Comment on above: For patients on eltr ombopag therapy, use of Dimension [place] TBIL is not recommended. Chloride [Moles/Vol] 101 mmol/L 98-107 [facility] Eosinophils/100 WBC (Bld) 1.8 % 0-[address] [facility] Glucose [Mass/Vol] 91 mg/dL 74-106 [facility] Neutrophils (Bld) [#/Vol] 4.0 10*3/uL 2.0-7.[address] [facility] Neutrophils/100 WBC (Bld) 59.3 % 47-[address] [facility] Potassium [Moles/Vol] 3.8 mmol/L 3.5-5.1 [facility] Protein [Mass/Vol] 7.1 g/dL 6.4-8.2 [facility] Sodium [Moles/Vol] 138 mmol/L 136-145 [facility] WBC (Bld) [#/Vol] 6.8 10*3/uL 4.4-11.0 [facility] Blood erythrocytes count (nu mber/volume)Ordered By: Dominick Peralta on 04-30-2023 RBC (Bld) [#/Vol] 3.70 10*6/uL 4.2-5.4 [facility] Blood hemoglobin measurement (mass/volume)Ordered By: Dominick Peralta on 04-30-2023 Hemoglobin (Bld) [Mass/Vol] 11.6 g/dL 12.0-15.[address] [facility] Blood lymphocytes/100 leukoc ytesOrdered By: Dominick Peralta on 04-30-2023 Lymphocytes/100 WBC (Bld) 25.1 % 19-[address] [facility] Blood monocytes/100 leukocyt esOrdered By: Dominick Peralta on 04-30-2023 Monocytes/100 WBC (Bld) 13.0 % 0-[address] [facility] Blood platelet mean volumeOr dered By: Dominick Peralta on 04-30-2023 Platelet mean volume (Bld) [Entitic vol] 11.6 fL 6.2-12.[address] [facility] Determination of erythrocyte mean corpuscular volume (MCV)Ordered By: Dominick Peralta on 04-30-2023 MCV (RBC) [Entitic vol] 98.1 fL 81-[address] [facility] Hematocrit Auto (Bld) [Volum e fraction]Ordered By: Dominick Peralta on 04-30-2023 Hematocrit (Bld) [Volume fraction] 36.3 % 37-[address] [facility] Iron measurement (mass/mass) Ordered By: Dominick Peralta on 04-30-2023 Iron (Unsp spec) [Mass/Mass] 79 ug/dL 50-[address] [facility] - Chemistry and C hemistry - challengeOrdered By: Dominick Peralta on 04-30-2023 ALP [Catalytic activity/Vol] 73 U/L 45-[address] [facility] ALT [Catalytic activity/Vol] 21 U/L 13-[address] [facility] CO2 [Moles/Vol] 29.0 mmol/L 21.0-32.[address] [facility] Free T4 [Mass/Vol] 1.12 ng/dL 0.76-1.46 [facility] Globulin (S) [Mass/Vol] 3.8 g/dL 2.2-4.[address] [facility] Urea nitrogen/Creatinine [Mass ratio] 20.4 mg/mg 10-[address] [facility] - Hematology and Cell countsOrdered By: Dominick Peralta on 04-30-2023 Erythrocyte distribution width (RBC) [Entitic vol] 46.6 fL 35.1-43.[address] [facility] Erythrocyte distribution width (RBC) [Ratio] 12.9 % 11.6-14.[address] [facility] Immature granulocytes/100 WBC (Bld) 0.400 % 0.0-0.[address] [facility] Comment on above: IG% - Immature Granu locytes (promyelocytes, myelocytes and metamyelocytes) > 1% indicates that a LEFT SHIFT is Present. MCH (RBC) [Entitic mass] 31.4 pg 27.0-32.0 [facility] [facility] Nucleated RBC/100 WBC (Bld) [Ratio] 0 % 0-[address] [facility] MCHC Auto (RBC) [Mass/Vol]Or dered By: Dominick Peralta on 04-30-2023 MCHC (RBC) [Mass/Vol] 32.0 g/dL 32-36 [facility] No Panel InformationOrdered By: Dominick Peralta on 04-30-2023 Estimated GFR (MDRD) Amer 97 mL/min >[address] [facility] Comment on above: GFR Calc Estimated GFR (MDRD) Non-Af Amer 80 mL/min >[address] [facility] Comment on above: Non- GFR Calc Thyroid Stimulating Hormone (TSH) 3.17 uIU/mL 0.358-3.[address] [facility] Total Iron Binding Capacity 222 ug/dL 250-[address] [facility] Vitamin D 25-Hydroxy 36.3 ng/mL [facility] Comment on above: Vitamin D 25(OH) Sta tus Range Deficiency <20 ng/mL (50nmol/L) Insufficiency 20 - 30 ng/mL (50 - 75 nmol/L) Sufficiency 30 - 100 ng/mL (75 - 250 nmol/L) Toxicity >100 ng/mL (>250 nmol/L) Platelets bldOrdered By: Go Peralta on 04-30-2023 Platelets (Bld) [#/Vol] 249 10*3/uL 150-[address] [facility] Serum or plasma albumin sam urement (mass/volume)Ordered By: Dominick Peralta on 04-30-2023 Albumin [Mass/Vol] 3.3 g/dL 3.2-5.0 [facility] Serum or plasma albumin/glob ulin mass ratioOrdered By: Dominick Peralta on 04-30-2023 Albumin/Globulin [Mass ratio] 0.9 {ratio} 0.9-2.[address] [facility] Serum or plasma calcium sam urement (mass/volume)Ordered By: Dominick Peralta on 04-30-2023 Calcium [Mass/Vol] 8.9 mg/dL 8.5-10.1 [facility] Serum or plasma creatinine m easurement (mass/volume)Ordered By: Dominick Peralta on 04-30-2023 Creatinine [Mass/Vol] 0.74 mg/dL 0.55-1.02 [facility] Comment on above: The validity of the calculated GFR & GFRAA in patients over 70 years has not been determined. Clinical correlation is essential. Serum or plasma ferritin delroy surement (mass/volume)Ordered By: Dominick Peralta on 04-30-2023 Ferritin [Mass/Vol] 312 ng/mL 8252 [facility] Serum or plasma urea nitroge n measurement (mass/volume)Ordered By: Dominick Peralta on 04-30-2023 Urea nitrogen [Mass/Vol] 15 mg/dL 7-[address] [facility] Thin prep Papanicolaou smear with manual screeningOrdered By: Dominick Peralta on 04-30-2023 Thin prep Papanicolaou smear with manual screening 17 U/L 15-[address] [facility] Thin prep Papanicolaou smear with manual screening 8 5-[address] [facility] Absolute lymphocyte countOrd ered By: Dominick Peralta on 10-13-2023 Lymphocytes Auto (Unsp spec) [#/Vol] 2.31 10*3/uL 0.83-4.[address] [facility] Basophil percentageOrdered B y: Dominick Peralta on 03-28-2023 Basophils/100 WBC (Bld) 0.8 % 0-[address] [facility] Eosinophils/100 WBC (Bld) 2.2 % 0-[address] [facility] Neutrophils (Bld) [#/Vol] 4.5 10*3/uL 2.0-7.[address] [facility] Neutrophils/100 WBC (Bld) 57.6 % 47-[address] [facility] WBC (Bld) [#/Vol] 7.8 10*3/uL 4.4-11.0 [facility] Blood erythrocytes count (nu mber/volume)Ordered By: Dominick Peralta on 03-28-2023 RBC (Bld) [#/Vol] 3.70 10*6/uL 4.2-5.4 [facility] Blood hemoglobin measurement (mass/volume)Ordered By: Dominick Peralta on 03-28-2023 Hemoglobin (Bld) [Mass/Vol] 11.7 g/dL 12.0-15.[address] [facility] Blood lymphocytes/100 leukoc ytesOrdered By: Dominick Peralta on 03-28-2023 Lymphocytes/100 WBC (Bld) 29.5 % 19-[address] [facility] Blood monocytes/100 leukocyt esOrdered By: Dominick Peralta on 03-28-2023 Monocytes/100 WBC (Bld) 9.8 % 0-[address] [facility] Blood platelet mean volumeOr dered By: Dominick Peralta on 03-28-2023 Platelet mean volume (Bld) [Entitic vol] 12.0 fL 6.2-12.[address] [facility] Determination of erythrocyte mean corpuscular volume (MCV)Ordered By: Dominick Peralta on 03-28-2023 MCV (RBC) [Entitic vol] 98.6 fL 81-[address] [facility] Hematocrit Auto (Bld) [Volum e fraction]Ordered By: Dominick Peralta on 03-28-2023 Hematocrit (Bld) [Volume fraction] 36.5 % 37-[address] [facility] Iron measurement (mass/mass) Ordered By: Dominick Peralta on 03-28-2023 Iron (Unsp spec) [Mass/Mass] 77 ug/dL 50-[address] [facility] Laboratory - Hematology and Cell countsOrdered By: Dominick Peralta on 03-28-2023 Erythrocyte distribution width (RBC) [Entitic vol] 46.9 fL 35.1-43.[address] [facility] Erythrocyte distribution width (RBC) [Ratio] 13.0 % 11.6-14.[address] [facility] Immature granulocytes/100 WBC (Bld) 0.100 % 0.0-0.[address] [facility] Comment on above: IG% - Immature Granu locytes (promyelocytes, myelocytes and metamyelocytes) > 1% indicates that a LEFT SHIFT is Present. MCH (RBC) [Entitic mass] 31.6 pg 27.0-32.[address] [facility] Nucleated RBC/100 WBC (Bld) [Ratio] 0 % 0-[address] [facility] MCHC Auto (RBC) [Mass/Vol]Or dered By: Dominick Peralta on 03-28-2023 MCHC (RBC) [Mass/Vol] 32.1 g/dL 32-36 [facility] No Panel InformationOrdered By: Dominick Peralta on 03-28-2023 Total Iron Binding Capacity 245 ug/dL 250-[address] [facility] Platelets bldOrdered By: Go Peralta on 03-28-2023 Platelets (Bld) [#/Vol] 254 10*3/uL 150-[address] [facility] Serum or plasma ferritin delroy surement (mass/volume)Ordered By: Dominick Peralta on 03-28-2023 Ferritin [Mass/Vol] 440 ng/mL 8-252 [facility] Absolute lymphocyte countOrd ered By: Adriano Arias on 02-16-2023 Lymphocytes Auto (Unsp spec) [#/Vol] 2.26 10*3/uL 0.83-4.[address] [facility] Basophil percentageOrdered B y: Adriano Arias on 02-16-2023 Basophils/100 WBC (Bld) 0.8 % 0-[address] [facility] Chloride [Moles/Vol] 107 mmol/L 98-107 [facility] Eosinophils/100 WBC (Bld) 6.1 % 0-[address] [facility] Glucose [Mass/Vol] 93 mg/dL 74-106 [facility] Neutrophils (Bld) [#/Vol] 2.5 10*3/uL 2.0-7.[address] [facility] Neutrophils/100 WBC (Bld) 41.9 % 47-[address] [facility] Potassium [Moles/Vol] 4.3 mmol/L 3.5-5.1 [facility] Sodium [Moles/Vol] 140 mmol/L 136-145 [facility] WBC (Bld) [#/Vol] 5.9 10*3/uL 4.4-11.0 [facility] Blood erythrocytes count (nu mber/volume)Ordered By: Adriano Arias on 02-16-2023 RBC (Bld) [#/Vol] 3.21 10*6/uL 4.2-5.4 [facility] Blood hemoglobin measurement (mass/volume)Ordered By: Adriano Arias on 02-16-2023 Hemoglobin (Bld) [Mass/Vol] 10.3 g/dL 12.0-15.[address] [facility] Blood lymphocytes/100 leukoc ytesOrdered By: Adriano Arias on 02-16-2023 Lymphocytes/100 WBC (Bld) 38.2 % 19-[address] [facility] Blood monocytes/100 leukocyt esOrdered By: Adriano Arias on 02-16-2023 Monocytes/100 WBC (Bld) 12.8 % 0-[address] [facility] Blood platelet mean volumeOr dered By: Adriano Arias on 02-16-2023 Platelet mean volume (Bld) [Entitic vol] 11.0 fL 6.2-12.[address] [facility] Determination of erythrocyte mean corpuscular volume (MCV)Ordered By: Adriano Arias on 02-16-2023 MCV (RBC) [Entitic vol] 100.3 fL 81-[address] [facility] Hematocrit Auto (Bld) [Volum e fraction]Ordered By: Adriano Arias on 02-16-2023 Hematocrit (Bld) [Volume fraction] 32.2 % 37-[address] [facility] Laboratory - Chemistry and C hemistry - challengeOrdered By: Adriano Arias on 02-16-2023 CO2 [Moles/Vol] 31.0 mmol/L 21.0-32.[address] [facility] Urea nitrogen/Creatinine [Mass ratio] 19.7 mg/mg 10-[address] [facility] Laboratory - Hematology and Cell countsOrdered By: Adriano Arias on 02-16-2023 Erythrocyte distribution width (RBC) [Entitic vol] 52.9 fL 35.1-43.[address] [facility] Erythrocyte distribution width (RBC) [Ratio] 14.3 % 11.6-14.[address] [facility] Immature granulocytes/100 WBC (Bld) 0.200 % 0.0-0.[address] [facility] Comment on above: IG% - Immature Granu locytes (promyelocytes, myelocytes and metamyelocytes) > 1% indicates that a LEFT SHIFT is Present. MCH (RBC) [Entitic mass] 32.1 pg 27.0-32.[address] [facility] Nucleated RBC/100 WBC (Bld) [Ratio] 0 % 0-[address] [facility] MCHC Auto (RBC) [Mass/Vol]Or dered By: Adriano Arias on 02-16-2023 MCHC (RBC) [Mass/Vol] 32.0 g/dL 32-36 [facility] No Panel InformationOrdered By: Adriano Arias on 02-16-2023 Estimated Creatinine Clearance Calc 46.24 ml/min [facility] Estimated GFR (MDRD) Amer 87 mL/min >[address] [facility] Comment on above: GFR Calc Estimated GFR (MDRD) Non-Af Amer 72 mL/min >[address] [facility] Comment on above: Non- GFR Calc Platelets bldOrdered By: Adriano Arias on 02-16-2023 Platelets (Bld) [#/Vol] 256 10*3/uL 150-[address] [facility] Serum or plasma calcium sam urement (mass/volume)Ordered By: Adriano Arias on 02-16-2023 Calcium [Mass/Vol] 8.7 mg/dL 8.5-10.1 [facility] Serum or plasma creatinine m easurement (mass/volume)Ordered By: Adriano Arias on 02-16-2023 Creatinine [Mass/Vol] 0.81 mg/dL 0.55-1.02 [facility] Comment on above: The validity of the calculated GFR & GFRAA in patients over 70 years has not been determined. Clinical correlation is essential. Serum or plasma urea nitroge n measurement (mass/volume)Ordered By: Adriano Arias on 02-16-2023 Urea nitrogen [Mass/Vol] 16 mg/dL 7-[address] [facility] Thin prep Papanicolaou smear with manual screeningOrdered By: Adriano Arias on 02-16-2023 Thin prep Papanicolaou smear with manual screening 2 5-[address] [facility] Blood hemoglobin measurement (mass/volume)Ordered By: Adriano Arias on 01-28-2023 Hemoglobin (Bld) [Mass/Vol] 8.6 g/dL 12.0-15.[address] [facility] Hematocrit Auto (Bld) [Volum e fraction]Ordered By: Adriano Arias on 01-28-2023 Hematocrit (Bld) [Volume fraction] 26.8 % 37-[address] [facility] Iron measurement (mass/mass) Ordered By: Adriano Arias on 01-28-2023 Iron (Unsp spec) [Mass/Mass] 60 ug/dL 50-[address] [facility] Laboratory - Chemistry and C hemistry - challengeOrdered By: Adriano Arias on 01-28-2023 Cobalamin (Vitamin B12) [Mass/Vol] 518 pg/mL 211-[address] [facility] No Panel InformationOrdered By: Adriano Arias on 01-28-2023 Vitamin D 25-Hydroxy 36.6 ng/mL [facility] Comment on above: Vitamin D 25(OH) Sta tus Range Deficiency <20 ng/mL (50nmol/L) Insufficiency 20 - 30 ng/mL (50 - 75 nmol/L) Sufficiency 30 - 100 ng/mL (75 - 250 nmol/L) Toxicity >100 ng/mL (>250 nmol/L) Absolute lymphocyte countOrd ered By: Adriano Arias on 01-26-2023 Lymphocytes Auto (Unsp spec) [#/Vol] 1.77 10*3/uL 0.83-4.[address] [facility] Basophil percentageOrdered B y: Adriano Arias on 01-26-2023 Basophils/100 WBC (Bld) 0.4 % 0-[address] [facility] Chloride [Moles/Vol] 106 mmol/L 98-107 [facility] Eosinophils/100 WBC (Bld) 1.3 % 0-5 [facility] Glucose [Mass/Vol] 111 mg/dL 74-106 [facility] Comment on above: Fasting Glucose resu lt from 100 to 125 mg/dL suggests IMPAIRED HOMEOSTASIS per A.D.A. criteria. Neutrophils (Bld) [#/Vol] 7.3 10*3/uL 2.0-7.[address] [facility] Neutrophils/100 WBC (Bld) 67.6 % 47-[address] [facility] Potassium [Moles/Vol] 3.7 mmol/L 3.5-5.1 [facility] Sodium [Moles/Vol] 142 mmol/L 136-145 [facility] WBC (Bld) [#/Vol] 10.8 10*3/uL 4.4-11.0 [facility] Blood erythrocytes count (nu mber/volume)Ordered By: Adriano Arias on 01-26-2023 RBC (Bld) [#/Vol] 2.70 10*6/uL 4.2-5.4 [facility] Blood lymphocytes/100 leukoc ytesOrdered By: Adriano Arias on 01-26-2023 Lymphocytes/100 WBC (Bld) 16.4 % 19-[address] [facility] Blood monocytes/100 leukocyt esOrdered By: Adriano Arias on 01-26-2023 Monocytes/100 WBC (Bld) 13.0 % 0-[address] [facility] Blood platelet mean volumeOr dered By: Adriano Arias on 01-26-2023 Platelet mean volume (Bld) [Entitic vol] 10.6 fL 6.2-12.[address] [facility] Determination of erythrocyte mean corpuscular volume (MCV)Ordered By: Adriano Arias on 01-26-2023 MCV (RBC) [Entitic vol] 95.9 fL 81-[address] [facility] Laboratory - Chemistry and C hemistry - challengeOrdered By: Adriano Arias on 01-26-2023 CO2 [Moles/Vol] 28.0 mmol/L 21.0-32.[address] [facility] Urea nitrogen/Creatinine [Mass ratio] 23.1 mg/mg 10-[address] [facility] Laboratory - Hematology and Cell countsOrdered By: Adriano Arias on 01-26-2023 Erythrocyte distribution width (RBC) [Entitic vol] 51.6 fL 35.1-43.[address] [facility] Erythrocyte distribution width (RBC) [Ratio] 14.9 % 11.6-14.[address] [facility] Immature granulocytes/100 WBC (Bld) 1.300 % 0.0-0.[address] [facility] Comment on above: IG% - Immature Granu locytes (promyelocytes, myelocytes and metamyelocytes) > 1% indicates that a LEFT SHIFT is Present. MCH (RBC) [Entitic mass] 32.2 pg 27.0-32.[address] [facility] Nucleated RBC/100 WBC (Bld) [Ratio] 0.3 % 0-[address] [facility] MCHC Auto (RBC) [Mass/Vol]Or dered By: Adriano Arias on 01-26-2023 MCHC (RBC) [Mass/Vol] 33.6 g/dL 32-36 [facility] No Panel InformationOrdered By: Adriano Arias on 01-26-2023 Estimated Creatinine Clearance Calc 37.45 ml/min [facility] Estimated GFR (MDRD) Amer 122 mL/min >[address] [facility] Comment on above: GFR Calc Estimated GFR (MDRD) Non-Af Amer 101 mL/min >[address] [facility] Comment on above: Non- GFR Calc Platelets bldOrdered By: Adriano Arias on 01-26-2023 Platelets (Bld) [#/Vol] 205 10*3/uL 150-[address] [facility] Serum or plasma calcium sam urement (mass/volume)Ordered By: Adriano Arias on 01-26-2023 Calcium [Mass/Vol] 8.0 mg/dL 8.5-10.1 [facility] Serum or plasma creatinine m easurement (mass/volume)Ordered By: Adriano Arias on 01-26-2023 Creatinine [Mass/Vol] 0.61 mg/dL 0.55-1.02 [facility] Comment on above: The validity of the calculated GFR & GFRAA in patients over 70 years has not been determined. Clinical correlation is essential. Serum or plasma urea nitroge n measurement (mass/volume)Ordered By: Adriano Arias on 01-26-2023 Urea nitrogen [Mass/Vol] 14 mg/dL 7-[address] [facility] Thin prep Papanicolaou smear with manual screeningOrdered By: Adriano Arias on 01-26-2023 Thin prep Papanicolaou smear with manual screening [address] [facility] No Panel Informationon 02-13 Stool Neutral Fats Normal . [facility] Work Phone: Comment on above: Normal (<60 Droplets /HPF) Qualitative fecal fat or lip idson 02-13-2022 Fat Ql (Stl) Normal . [facility] Work Phone: Comment on above: Normal (<100 Droplet s/HPF)Performed at: [address] [id number] Director: Patrice Hansen PhD, Phone: [phone] ANES Jose 01-07-2020 ANES POST HNO ID: [id number] Author: Yohana Muhammad Service: Anesthesiology Author Type: [...] 07, 2020 TIME: 9:45 AM PAGER/CONTACT #: [id number] [facility] ANES PREOPon 01-07-2020 ANES PREOP HNO ID: [id number] Author: Yohana Muhammad Service: Anesthesiology Author Type: [...] Seborrheic Keratosis NEVI////BENIGN MARGAUX SKIN TRUNK NEVI/////BENIGN MARGUAX SKIN LEG Viral Warts, Unspecified Rectal Bleeding Screening for Colon Cancer Osteopenia PAST MEDICAL HISTORY Diagnosis Date - Internal hemorrhoids without mention of complication - Melanoma of skin, site unspecified Malignant melanoma - Unspecified constipation PAST SURGICAL HISTORY Procedure Laterality Date - CATARACT EXTRACTION HX Bilateral 9 - COLONOSCOP W/ OR W/O [facility] SPEC 08/05/02 Colonoscopy - COLONOSCOP W/ OR W/O [facility] SPEC 05/19/2013 Colonoscopy - COLONOSCOP W/ OR W/O [facility] SPEC 10/07/2018 Colonoscopy - COSMETIC LASER SCLEROTHERAPY [...] lap femoral and indirect inguinal hernia repair [facility] HISTORY Problem Relation Age of Onset [...] January 07, 2020 TIME: 7:51 AM CSN: [id number] [facility] HISTORY PHYSICALon 0 HISTORY PHYSICAL HNO ID: [id number] Author: Harry Brian Service: Ophthalmology Author Type: [...] January 07, 2020 TIME: 8:07 AM PAGER: [facility] OPERATIVE NOon 01-07-2020 OPERATIVE NO HNO ID: [id number] Author: Harry Brian Service: Ophthalmology Author Type: Physician Type: Operative Report Filed: 01/07/2020 8:40 AM Note Text: OPERATIVE/PROCEDURE REPORT LOG ID: [id number] Surgery/Procedure Date: 01/07/2020 INCISION/PROCEDURE START TIME: 8:16 AM INCISION CLOSE/PROCEDURE END TIME: 8:38 AM Surgeon(s)/Proceduralist (s) and High Density Finishing Operator(s): Surgeon(s) and Role: * Harry Brian - [...] the level of the lacrimal fossa. A [place] elevator was used to raise the tissue [...] 07, 2020 TIME: 8:40 AM PAGER/CONTACT #: [facility] 12-20-2019 [facility] Patient:Blane Kaiser MRN: Height:5' 6.5(1.689 m) Weight:155 [...] for the following basenames: K,HCT Progress Notes ([facility] HOTLINE DEPARTMENT): Mame Adan APRN.RAJENDRA LOPEZ 12/20/2019 9:40 AM Signed Patient referred to [facility] for pre-operative testing. COVID-19 test has been ordered. Scheduling will contact the patient within 24-48hrs to schedule for testing. Mame Adan APRN.CNP Lor Kaiser 40 DOS 01/07/[id number] Harry Brian [facility] Ova and parasites Ova and parasites identified LM Nom (Unsp spec) [facility] Work Phone: Vital Signs Date Time Vital Sign Value Performing Clinician Faci lity 09-16-2023 15:30-0400 Body height [address] Dominick Peralta Work Phone: [facility] 09-16-2023 15:24-0400 Body mass index (BMI) [Ratio] 25.4 kg/m2 Dr. Dominick Peralta Work Phone: [facility] 09-16-2023 15:24-0400 Body weight 69.[address] Dominick Peralta Work Phone: [facility] 09-16-2023 15:24-0400 Diastolic blood pressure 77 mm[Hg] Dr. Dominick Peralta Work Phone: [facility] 09-16-2023 15:24-0400 Systolic blood pressure 121 mm[Hg] Dr. Dominick Peralta Work Phone: [facility] 02-17-2023 16:00-0400 Body temperature 97.5 [degF] Dr. Dominick Peralta Work Phone: [facility] 02-17-2023 16:00-0400 Diastolic blood pressure 53 mm[Hg] Dr. Dominick Peralta Work Phone: [facility] 02-17-2023 16:00-0400 Heart rate 77 /min Dr. Dominick Peralta Work Phone: [facility] 02-17-2023 16:00-0400 Respiratory rate 14 /min Dr. Dominick Peralta Work Phone: [facility] 02-17-2023 16:00-0400 SaO2% (BldA) [Mass fraction] 98 % Dr. Dominick Peralta Work Phone: [facility] 02-17-2023 16:00-0400 Systolic blood pressure 104 mm[Hg] Dr. Dominick Peralta Work Phone: [facility] 02-12-2023 12:45-0400 Body height [address] Dominick Peralta Work Phone: [facility] 02-12-2023 12:45-0400 Body weight 66.[address] Dominick Peralta Work Phone: [facility] 02-11-2023 09:00-0400 Body mass index (BMI) [Ratio] 24.4 kg/m2 Dr. Dominick Peralta Work Phone: [facility] 01-30-2023 15:35-0400 Body temperature 97.2 [degF] Dr. Dominick Peralta Work Phone: [facility] 01-30-2023 15:35-0400 Diastolic blood pressure 47 mm[Hg] Dr. Dominick Peralta Work Phone: [facility] 01-30-2023 15:35-0400 Heart rate 85 /min Dr. Dominick Peralta Work Phone: [facility] 01-30-2023 15:35-0400 Respiratory rate 14 /min Dr. Dominick Peralta Work Phone: [facility] 01-30-2023 15:35-0400 SaO2% (BldA) [Mass fraction] 99 % Dr. Dominick Peralta Work Phone: [facility] 01-30-2023 15:35-0400 Systolic blood pressure 120 mm[Hg] Dr. Dominick Peralta Work Phone: [facility] 01-29-2023 12:49-0400 Body height [address] Dominick Peralta Work Phone: [facility] 01-29-2023 12:49-0400 Body weight 70.[address] Dominick Peralta Work Phone: [facility] 01-27-2023 23:00-0400 Body mass index (BMI) [Ratio] 25.8 kg/m2 Dr. Dominick Peralta Work Phone: [facility] Encounters Encounter Date Encounter Type Care Provider Facility Start: 11-06-2024 ambulatory Dominick Peralta Facilit y:[facility] Start: 07-07-2024 Encounter for genera l adult medical examination without abnormal findings Aishwarya Valerio NP [facility] Start: 06-02-2024 End: 06-02-2024 ambulatory Dominick Peralta Facility:[facility] Start: 09-23-2023 End: 09-23-[address] Dominick Peralta Work Phone: [facility] Work Phone: Start: 09-23-2023 End: 09-23-[address] Dominick Peralta Work Phone: [facility]Outpatient Breast Imaging Work Phone: Start: 09-18-2023 Non-patient / Non-visit Dr. Mayra Peralta Work Phone: [facility] Start: 09-18-2023 End: 09-18-[address] Dominick Peralta Work Phone: [facility] Work Phone: Start: 09-18-2023 End: 09-18-[address] Dominick Peralta Work Phone: [facility]-Radiology, [facility] Work Phone: Start: 09-16-2023 End: 09-16-[address] Dominick Peralta Work Phone: [facility] Work Phone: Start: 09-09-2023 End: 09-09-[address] [facility] Work Phone: Start: 09-09-2023 End: 09-09-2023 Patient encounter procedure [facility] Densitometry Work Phone: Start: 05-28-2023 End: 05-28-[address] [facility] Work Phone: Start: 05-28-2023 End: 05-28-2023 Patient encounter procedure [facility] Start: 05-06-2023 End: 05-06-[address] Dominick Peralta Work Phone: [facility] Work Phone: Start: 05-06-2023 End: 05-06-[address] Dominick Peralta Work Phone: [facility]Ultrasound, [facility] Work Phone: Start: 04-30-2023 End: 04-30-[address] Dominick Peralta Work Phone: [facility] Start: 03-28-2023 End: 03-28-[address] Dominick Peralta Work Phone: [facility] Work Phone: Start: 03-28-2023 End: 03-28-[address] Dominick Peralta Work Phone: [facility] Start: 01-27-2023 Non-patient / Non-visit Dr. Mayra Peralta Work Phone: [facility] Start: 01-27-2023 End: 01-27-[address] Dominick Peralta Work Phone: [facility] Work Phone: Start: 01-27-2023 End: 01-27-[address] Dominick Peralta Work Phone: [facility]Cardi[facility] Services Work Phone: Start: 01-25-2023 End: 02-18-2023 Evaluation and management of inpatient Dr. Dominick Peralta Work Phone: [facility]Transitional Care [facility] Start: 05-30-2022 End: 05-30-[address] [facility] Work Phone: Start: 05-30-2022 End: 05-30-2022 Patient encounter procedure [facility]Outpatient Breast Imaging Start: 02-13-2022 End: 02-13-[address] [facility] Work Phone: Start: 02-13-2022 End: 02-13-2022 Patient encounter procedure [facility]Laboratory, Specimen Procedures Date Procedure Procedure Detail Performing [...] Activity Detail Author Start: 03-02-[address] [facility] Start: 02-23-[address] [facility] Start: 02-18-2023 Development of care plan [facility] Start: 02-18-2023 Patient discharge [facility] Start: 02-16-[address] [facility] Start: 02-13-2023 Referral to service [facility] Start: 02-09-[address] [facility] Start: 02-06-2023 Gait training procedure [facility] Start: 02-02-[address] [facility] Start: 01-29-2023 Wound care [facility] Start: 01-29-2023 Removal of device [facility] Start: 01-26-2023 Developing a treatment plan [facility] Start: 01-26-2023 Development of care plan [facility] Start: 01-25-2023 End: 01-26-2023 [facility] Start: 01-25-2023 Admission procedure [facility] Start: 01-25-2023 Measuring intake and output [facility] Start: 01-25-2023 Patient referral to dietitian [facility] Start: 01-25-2023 Referral to occupati onal therapist [facility] Start: 01-25-2023 Referral to service [facility] Start: 01-25-2023 Verification routine [facility] Start: 01-25-2023 Vital signs measurements [facility] Start: 01-25-2023 Provision of activity privileges [facility] Anion gap measurement [facility] Anion gap measurement [facility] Anion gap measurement [facility] Anion gap measurement [facility] Anion gap measurement [facility] BUN/Creatinine ratio [facility] BUN/Creatinine ratio [facility] BUN/Creatinine ratio [facility] BUN/Creatinine ratio [facility] BUN/Creatinine ratio [facility] Calcium [Mass/volume ] in Serum or Plasma [facility] Calcium [Mass/volume ] in Serum or Plasma [facility] Calcium [Mass/volume ] in Serum or Plasma [facility] Calcium [Mass/volume ] in Serum or Plasma [facility] Calcium [Mass/volume ] in Serum or Plasma [facility] Carbon dioxide, tota l [Moles/volume] in Serum or Plasma [facility] Carbon dioxide, tota l [Moles/volume] in Serum or Plasma [facility] Carbon dioxide, tota l [Moles/volume] in Serum or Plasma [facility] Carbon dioxide, tota l [Moles/volume] in Serum or Plasma [facility] Carbon dioxide, tota l [Moles/volume] in Serum or Plasma [facility] Chloride [Moles/volu me] in Serum or Plasma [facility] Chloride [Moles/volu me] in Serum or Plasma [facility] Chloride [Moles/volu me] in Serum or Plasma [facility] Chloride [Moles/volu me] in Serum or Plasma [facility] Chloride [Moles/volu me] in Serum or Plasma [facility] Creatinine [Moles/vo lume] in Serum or Plasma [facility] Creatinine [Moles/vo lume] in Serum or Plasma [facility] Creatinine [Moles/vo lume] in Serum or Plasma [facility] Creatinine [Moles/vo lume] in Serum or Plasma [facility] Creatinine [Moles/vo lume] in Serum or Plasma [facility] Glucose [Mass/volume ] in Serum or Plasma [facility] Glucose [Mass/volume ] in Serum or Plasma [facility] Glucose [Mass/volume ] in Serum or Plasma [facility] Glucose [Mass/volume ] in Serum or Plasma [facility] Glucose [Mass/volume ] in Serum or Plasma [facility] Hematocrit [Volume F raction] of Blood [facility] Hematocrit [Volume F raction] of Blood [facility] Hematocrit [Volume F raction] of Blood [facility] Hematocrit [Volume F raction] of Blood [facility] Hematocrit [Volume F raction] of Blood [facility] Hemoglobin [Mass/vol ume] in Blood [facility] Hemoglobin [Mass/vol ume] in Blood [facility] Hemoglobin [Mass/vol ume] in Blood [facility] Hemoglobin [Mass/vol ume] in Blood [facility] Hemoglobin [Mass/vol ume] in Blood [facility] Leukocytes [#/volume] in Blood [facility] Leukocytes [#/volume] in Blood [facility] Leukocytes [#/volume] in Blood [facility] Leukocytes [#/volume] in Blood [facility] Leukocytes [#/volume] in Blood [facility] Mean corpuscular hem oglobin concentration determination [facility] Mean corpuscular hem oglobin concentration determination [facility] Mean corpuscular hem oglobin concentration determination [facility] Mean corpuscular hem oglobin concentration determination [facility] Mean corpuscular hem oglobin concentration determination [facility] Mean corpuscular hem oglobin determination [facility] Mean corpuscular hem oglobin determination [facility] Mean corpuscular hem oglobin determination [facility] Mean corpuscular hem oglobin determination [facility] Mean corpuscular hem oglobin determination [facility] Measurement of renal function [facility] Measurement of renal function [facility] Measurement of renal function [facility] Measurement of renal function [facility] Measurement of renal function [facility] MG Breast - bilateral Screening [facility] Neutrophil count [facility] Neutrophil count [facility] Neutrophil count [facility] Neutrophil count [facility] Neutrophil count [facility] Neutrophil percent d ifferential count [facility] Neutrophil percent d ifferential count [facility] Neutrophil percent d ifferential count [facility] Neutrophil percent d ifferential count [facility] Neutrophil percent d ifferential count [facility] Patient referral [facility] Work Phone: Platelets [#/volume] in Blood [facility] Platelets [#/volume] in Blood [facility] Platelets [#/volume] in Blood [facility] Platelets [#/volume] in Blood [facility] Platelets [#/volume] in Blood [facility] Potassium [Moles/vol ume] in Serum or Plasma [facility] Potassium [Moles/vol ume] in Serum or Plasma [facility] Potassium [Moles/vol ume] in Serum or Plasma [facility] Potassium [Moles/vol ume] in Serum or Plasma [facility] Potassium [Moles/vol ume] in Serum or Plasma [facility] Red blood cell count [facility] Red blood cell count [facility] Red blood cell count [facility] Red blood cell count [facility] Red blood cell count [facility] Red cell distributio n width determination [facility] Red cell distributio n width determination [facility] Red cell distributio n width determination [facility] Red cell distributio n width determination [facility] Red cell distributio n width determination [facility] Sodium [Moles/volume ] in Serum or Plasma [facility] Sodium [Moles/volume ] in Serum or Plasma [facility] Sodium [Moles/volume ] in Serum or Plasma [facility] Sodium [Moles/volume ] in Serum or Plasma [facility] Sodium [Moles/volume ] in Serum or Plasma [facility] Urea nitrogen [Mass/ volume] in Serum or Plasma [facility] Urea nitrogen [Mass/ volume] in Serum or Plasma [facility] Urea nitrogen [Mass/ volume] in Serum or Plasma [facility] Urea nitrogen [Mass/ volume] in Serum or Plasma [facility] Urea nitrogen [Mass/ volume] in Serum or Plasma [facility] Immunizations Immunization Date Immunization Notes Care Provider [facility] 02-13-2023 Pneumococcal Vaccine PCV20 (Prevnar 20) Dr. Dominick Peralta Work Phone: [facility] 03-06-2022 influenza, injectabl e, quadrivalent, preservative free Dr. Dominick Peralta Work Phone: [facility] 03-06-2022 influenza, seasonal, injectable Dr. Dominick Peralta Work Phone: [facility] 05-28-2021 Covid (Moderna) Dr. Dominick kelley Work Phone: [facility] 04-04-2021 influenza, high dose seasonal, preservative-free Dr. Dominick Peralta Work Phone: [facility] 09-11-2020 Covms (Moderna) [facility] 08-14-2020 Covid (Moderna) [facility] 03-21-2020 Influenza, injectabl e, Madin Screven Canine Kidney, preservative free, quadrivalent Dr. Dominick Peralta Work Phone: [facility] 10-22-2019 pneumococcal polysaccharide vaccine, [address] Dominick Peralta Work Phone: [facility] 10-22-2019 tetanus toxoid, redu mary lou diphtheria toxoid, and acellular pertussis vaccine, adsorbed Dr. Dominick Peralta Work Phone: [facility] 05-04-2019 influenza, injectabl e, quadrivalent, preservative free Dr. Dominick Peralta Work Phone: [facility] 05-04-2019 influenza, seasonal, injectable Dr. Dominick Peralta Work Phone: [facility] 05-06-2017 influenza, high dose seasonal, preservative-free Dr. Dominick Peralta Work Phone: [facility] 06-14-2009 novel influenza-H1N1 -09, preservative-free, injectable Dr. Dominick Peralta Work Phone: [facility] 03-17-2009 influenza, injectabl e, quadrivalent, preservative free Dr. Dominick Peralta Work Phone: [facility] 03-17-2009 influenza, seasonal, injectable Dr. Dominick Peralta Work Phone: [facility] 04-24-2007 influenza, injectabl e, quadrivalent, preservative free Dr. Dominick Peralta Work Phone: [facility] 04-24-2007 influenza, seasonal, injectable Dr. Dominick Peralta Work Phone: [facility] Payers Date Payer Category Payer Self-pay [id number] 2024 Unknown [id number] 2007 Unknown COMMERCIAL OTHER [id number] 2005 Medicare [id number] Unknown [id number] Unknown [id number] Social History Date Type Detail Facility Start: 11-12-2019 End: 03-17-2023 Tobacco smoking status NHIS Unknown if ever smoked [facility] Start: 1940 Sex Assigned At Female W [facility] Medical Equipment Procedure Code Equipment Code [...] Assessment Result Facility 02-18-2023 Functional status Bedrest [facility] Work Phone: 01-31-2023 Functional status Bedrest;Bedside Commode [facility] Work Phone: Mental Status Date Assessment Result Facility 02-18-2023 Cognitive function Awake;Alert [facility] Work Phone: 02-17-2023 Cognitive function Arousable To Voice/Nam e [facility] Work Phone: 02-14-2023 Cognitive function Appropriate;Cooperativ e [facility] Work Phone: 01-30-2023 Cognitive function Voice/Name [facility] Work Phone: 01-28-2023 Cognitive function Appropriate;[facility] Work Phone: Procedure note 09-18-2023 Note Date & Type Note Facility 09-18-2023 Procedure note [facility] Discharge summary 02-13-2023 Note Date & Type Note Facility 02-13-2023 Discharge summary Note Date/Time February 13, 2023 7:23pm [facility] Medical Records Department [address] [place] [address] Discharge Summary 02/13/231921 MR#: [id number] Acct: [id number] Name: LOR KAISER Rep #:[id number] : 1940 82 From: Adriano Arias MD PCP: Dr. Dominick Peralta MD Status:AD M IN Location: [place] [address] Providers Date of Admission: 01/25/23 Primary Care [...] - Temazepam 15mg qhs prn, stable chronic skilled nursing use, GDR not recommended. * Overactive bladder - Tolterodine 4mg daily. * Left lower extremity swelling - Doppler ultrasound left lower extremity to evaluate for DVT. Medications at Discharge Home Medications mirabegron 25 mg tablet,extended release 24 hr 25 mg PO DAILY Overactive [id number]/13/16 calcium carb-ergocalciferol (vit D2) 600 mg calcium-200 [...] Xarelto thru 04/29/2023. Discharge home with 02/18/2023, [facility] PT/OT, wheelchair. Physical Exam Const alert [...] pain Additional Instructions: Discharge home with 02/18/2023, [facility] PT/OT, wheelchair. Please Follow Up With: Manfred Flores MD When: As scheduled. Meaningful Use Info Meaningful Use Diagnoses (Choose all that apply): None applicable Discharge Plan Admission Admit Date/Time: 01/25/23 22:06 Primary Reason for Your Visit: Debility. Attending Provider: Adriano Arias Chi Primary Care Provider: Dominick Peralta Instructions Additional Instructions / Restrictions: Discharge home with 02/18/2023, [facility] PT/OT, wheelchair. Discharge Orders/Prescriptions Prescriptions: New [...] 7-10 bisacodyl 10 mg suppository 10 mg WA DAILY PRN (Reason: constipation) tramadol 50 mg tablet 50 mg PO Q4H PRN (Reason: pain) Rx Instructions: For pain 1-3 Referrals / Follow Up: Dominick Peralta MD [Primary Care Provider] - (Please schedule appt for 02/18 or 02/19 for [facility] to follow.) Manfred Flores MD [Med Staff - Active Staff] - 03/12/23 2:15 pm Disposition Disposition (needs filled in before D/C Order can be placed): Home Health Service 02/13/231928 <Electronically signed by Adriano Arias MD> Cosigner Signature (if applicable): CC: Dr. Dominick Peralta MD; Dr. Adriano Arias MD~ Signed [facility] Work Phone: Progress note 01-27-2023 Note Date & Type Note Facility 01-27-2023 Progress note Note Date/Time January 27, 2023 2:51pm [facility] Medical Records Department [address] [place] [address] Progress Note - Pharmacy 01/27/23 1447 MR#: [id number] Acct: [id number] Name: LOR KAISER Rep #:[id number] : 1940 82 From: Madalyn Castellanos PCP: Dr. Dominick Peralta MD Status:AD M IN Location: [facility] [place] [address] Documented by User: Madalyn Castellanos 01/27/23 14:59 [...] 17 Gm Packet PO Not Given DAILY [facility] Rivaroxaban 15 mg 01/27/23 17:00 Rivaroxaban 15 Mg Tablet PO 02/17/23 17:01 BIDCM YOSI Rivaroxaban 20 mg 02/18/23 17:00 Rivaroxaban 20 Mg Tablet PO 05/19/23 17:01 [facility] Senna/Docusate Sodium 2 tablet 01/26/23 18:00 01/27/23 06:54 Senna/Docusate Sodium 1 Tablet PO 2 tablet BID YOSI Administration Temazepam 15 mg 01/25/23 23:25 Temazepam 15 Mg Capsule PO QHS PRN PRN sleep Tolterodine Tartrate 4 mg 01/26/23 06:00 01/27/23 06:55 Tolterodine Tartrate 4 Mg Cap.Sa PO 4 mg DAILY YOIS Administration Tramadol HCl 50 mg 01/26/23 08:20 [...] medication. 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 [...] Comments to Recommendations by Pharmacy: Agree 01/27/23 1453 <Electronically signed by Madalyn Castellanos> Madalyn Castellanos Cosign Signature (if applicable): 01/27/23 1718 <Electronically signed by Adriano Arias MD> CC: ~ Signed [facility] Work Phone: History and physical note 01-27-2023 Note Date & Type Note Facility 01-27-2023 History and physi mari note Note Date/Time January 25, 2023 11:05pm [facility] Medical Records Department [address] [place] [address] History & Physical Exam 01/25/23 0565 MR#: [id number] Acct: [id number] Name: LOR KAISER Rep #:[id number] : 1940 82 From: Adriano Arias MD PCP: Dr. Dominick Peralta MD Status:AD M IN Location: [facility] [id number] HPI - General General Date of Admission: 01/25/23 Date of Service: 01/27/23 Chief Complaint: Here for rehabilitation. HPI Narrative LOR KAISER, is a 82 Female who presents with followin01/21/2023 Admit to [facility] ([place], [place]) Visiting grandchildren, ground level fall, left [...] strengthening, prior to discharge home with . [facility] Medical History (Updated 01/25/23 @ 23:[address] 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 * Overactive bladder - Tolterodine 4mg daily. * Left lower extremity swelling - Doppler ultrasound left lower extremity to evaluate for DVT. 01/27/23 08 <Electronically signed by Adriano Arias MD> Cosigner Signature (if applicable): CC: Dr. Dominick Peralta MD; Dr. Adriano Arias MD~ Signed [facility] Work Phone: Clinical Note 07-20-2020 Note Date & Type Note Facility 07-20-2020 Note Patient Outreach ([place] [facility]) JOBLOR Rhiannon ([id number]) 1940 F Date Time Provider Department 07/20/20 [...] Fully Assessed Order(s):SARS-COVID VACCINE 1ST DOSE APPT [[id number]] Order #: [id number] FUTURE Prescriptions as of 07/20/2020 Sig: OTC [...] Encounter Status:Closed by EPIC, PRODUSER on 07/24/20 [facility] Evaluation note Note Date & Type Note Facility Evaluation note No assessment information availa ble [facility] Work Phone: Evaluation note Note Date & Type Note Facility Evaluation note Diagnosis Onset Date Debility acute Fall acute Multinodular goiter acute Osteoarthritis acute Overactive bladder acute Periprosthetic fracture arou nd internal prosthetic left hip joint acute [facility] Work Phone: Evaluation note Note Date & Type Note Facility Evaluation note Diagnosis Onset Date Debility acute Osteoarthritis acute Overactive bladder acute Fall resolved Multinodular goiter resolved Periprosthetic fracture arou nd internal prosthetic left hip joint resolved [facility] Work Phone: Evaluation note Note Date & Type Note Facility Evaluation note Diagnosis Onset Date Well woman exam with routine gynecological exam acute Left shoulder pain acute [facility] Work Phone: Summary Purpose Family History No [...] October 28, 2018 7 :56pm Power of Gas Analyst No October 28, 2018 7:56pm Advance Directive Response Recorded Date/ Time Advance Directives No May 8:33am Living Will No October 28, 2018 6 :56pm Power of Gas Analyst No October 28, 2018 6:56pm Advance Directive Response Recorded Date/ Time Advance Directives No May 9:33am Living Will No January 28 3 2:42pm Power of Gas Analyst No January 28 023 2:42pm Advance Directive Response Recorded Date/ Time Advance Directives No March 17, 2023 10:19am Living Will No March 17 3 10:19am Power of Gas Analyst No March 17 023 10:19am Advance Directive Response Recorded Date/ Time Advance Directives No March 17, 2023 9:19am Living Will No March 17 3 9:19am Power of Gas Analyst No March 17 023 9:19am Chief Complaint [...] MENOPAUSAL AND PERIM ENOPAUSAL prolapse care, fmr [place] pt PAIN IN LEFT SHOULDER PAIN IN LEFT SHOULDER Reason for Visit Well woman exam with routine gynecological exam Left shoulder pain Chief Complaint MENOPAUSAL AND PERIM ENOPAUSAL prolapse care, fmr [place] pt PAIN IN LEFT SHOULDER PAIN IN LEFT SHOULDER SCREENING Reason for Visit Well woman exam with routine gynecological exam Left shoulder pain Chief Complaint LEFT HIP FX, ORIF GOITER Reason for Visit Debility Osteoarthritis Overactive bladder Fall Multinodular goiter 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 Additional Source Comments INFORMATION SOURCE (unrecogn ized section and content) DATE CREATED AUTHOR 01/09/2020 [facility] DATE CREATED AUTHOR AUTHOR'S ORGANIZ ATION 07/04/2021 [facility] DATE CREATED AUTHOR AUTHOR'S ORGANIZ ATION 11/12/2024 [facility] Goals (unrecognized section and content) Goals may [...] BE BASED ON THE PRIMARY CLINICAL RECORDS. Modify [facility]. provides no warranty or guarantee of the accuracy or completeness of information in this document.
== END | disposition home or self-care (01) ==
LOC: MTLAB 09:05
PROVIDERS: PCP Family Medicine; Referring Provider Orthopaedic Surgery; Visit Provider Orthopaedic Surgery
DX: M17.31 Unilateral post-traumatic osteoarthritis, right knee (principal); N28.9 Disorder of kidney and ureter, unspecified
CPT/HCPCS: 36415; 82565